=== PATIENT | female | born 1950 | race Caucasian/White ===

== ENCOUNTER 2021-01-14 09:31 | Outpatient (CLI) | payer OTHER, SELFPAY ==
--- NOTE | ~2021-01-14 | XR_ITS ---
EXAMINATION: XR knee LT 2V EXAM DATE: 01/14/2021 09:57 INDICATION: Bilateral knee pain. TECHNIQUE: Frontal and lateral projections of the left knee. Comparison is made to prior examination from 12/28/2015. FINDINGS: Long stem femoral and tibial components to left knee replacement hardware and patellar res urfacing. No hardware or osseous fracture. No periprosthetic lucency to suggest infection. No appreci able left knee joint effusion. The soft tissue is unremarkable. Advanced right knee primary osteoarth ritis. IMPRESSION: Intact left knee hardware, no acute findings. Reviewed, dictated and finalized at location A.
--- NOTE | ~2021-01-14 | XR_ITS ---
XR knee RT 2V 01/14/2021 09:56 Indication: Bilateral knee pain Procedure: 2 views right knee Comparison: No prior studies for comparison. Findings: There is severe tricompartment osteoarthritis. No acute fracture or traumatic malalignment. No significant joint effusion. No focal foreign bodies. Impression: 1: Severe tricompartment osteoarthritis of the right knee. Reviewed, dictated and finalized at location B. Impression: 1: Severe tricompartment osteoarthritis of the right knee.
== END 2021-01-14 09:32 | disposition home or self-care (01) ==
PROVIDERS: PCP Nurse Practitioner; Visit Provider Nurse Practitioner
DX: M25.561 Pain in right knee (principal); M25.562 Pain in left knee; Z96.652 Presence of left artificial knee joint; M17.11 Unilateral primary osteoarthritis, right knee
CPT/HCPCS: 73560

== ENCOUNTER 2021-01-24 14:53 | Emergency (ER) | payer OTHER, SELFPAY ==
--- NOTE | 2021-01-24 14:55 | ECG_ITS ---
Measurements Intervals [place] Rate: 80 P: 24 KS: 179 QRS: -40 QRSD: 88 T: 16 QT: 412 QTc: 476 Interpretive Statements SINUS RHYTHM POSSIBLE LEFT ATRIAL ENLARGEMENT LEFT AXIS DEVIATION POSSIBLE LEFT VENTRICULAR HYPERTROPHY POOR R WAVE PROGRESSION, ANTERIOR LEADS CANNOT RULE OUT SEPTAL INFARCT, AGE INDETERMINATE MINIMAL Q WAVES- HIGH LATERAL LEDS BORDERLINE T WAVE ABNORMALITY- ANTEROLAT/INF LEADS ABNORMAL ECG Electronically Signed On 01-24-2021 15:12:44 CDT by Ezra Jay D.O.
[2021-01-24 14:57] VITALS: BP 132/95; PULSE 78; RESP 18; TEMP 36.2; O2SAT 98
[2021-01-24 15:25] LABS: Basophils Percent Auto 0.9 % (0.2-1.2); Eosinophils Absolute Auto 0.1 K/mm3 (0-0.3); Eosinophils Percent Auto 1.8 % (0-4.4); Hematocrit 37.7 % (37.0-47.0); Hemoglobin 12.2 g/dL (12.0-15.0); Immature Granulocyte Absolute 0.01 K/mm3 (0.00-0.031); Immature Granulocyte Percent A 0.2 % (0-0.5); Lymphocytes Absolute Auto 1.71 K/mm3 (0.9-3.2); Lymphocytes Percent Auto 37.6 % (18.3-44.2); Mean Corpuscular HGB Conc 32.4 g/dl (32-36); Mean Corpuscular Hemoglobin 31.1 pg (26-34); Mean Corpuscular Volume 96.2 fl (80-100); Mean Platelet Volume 9.1 fl (7.4-10.4); Monocytes Absolute Auto 0.4 K/mm3 (0.1-0.6); Neutrophils Absolute Auto 2.3 K/mm3 (1.3-6.7); Neutrophils Percent Auto 50.5 % (45.5-73.1); Platelet Count Result 215 k/mm3 (150-375); Red Blood Count 3.92 M/mm3 (4.2-5.4); Red Cell Distribution Width 13.6 % (11.5-14.5); White Blood Count 4.6 K/mm3 (4.5-10.0)
[2021-01-24 15:50] LABS: Alanine Aminotransferase 11 U/L (4-35); Albumin Level 4.5 g/dL (3.5-5.1); Alkaline Phosphatase 73 U/L (38-126); Anion Gap 10 mmol/L (8-16); Aspartate Amino Transferase 36 U/L (14-36); Bilirubin,Total 0.5 mg/dL (0.2-1.3); Blood Urea Nitrogen 26 mg/dL (7-17); Calcium 9.4 mg/dL (8.4-10.2); Carbon Dioxide 19 mmol/L (22-30); Chloride 108 mmol/L (98-107); Estimated CRCL calculation 45 ml/min; Estimated Glomerular Filt Rate 55; Glucose 88 mg/dL (65-105); Potassium 4.3 mmol/L (3.4-5.0); Sodium 137 mmol/L (137-145)
[2021-01-24 18:10] VITALS: BP 142/72; PULSE 85; RESP 20; O2SAT 98
--- NOTE | 2021-01-24 18:30 | PC.NURSE ---
Called lab to add on TSH
--- NOTE | 2021-01-24 18:38 | ED.GENADULT ---
HPI - General Adult General Chief complaint: Altered Mental Status <Leon Saha MD - Last Filed: 01/24/21 21:22> Stated complaint: Nausea, Confusion <Leon Saha MD - Last Filed: 01/24/21 21:22> Time Seen by Provider: 01/24/21 18:17 <Leon Saha MD - Last Filed: 01/24/21 21:22> History of Present Illness HPI narrative: Patient is a 70-year-old female who presents ER with altered mental status. Patient reports she was at her apartment building and the national account manager there recommended she be seen in the hospital for confusion. Apparently she was standing in the lobby talking to her mother who is no longer present. Patient reports psychiatric illness but is unsure which one it is. She also believes that it is December 1919. Patient denies any SI/HI. She denies hearing any voices or seeing things that are not there. She reports she often talks to her mother out of habit. Denies using drugs or alcohol. <Leon Saha MD - Last Filed: 01/24/21 21:22> Related Data Allergies/adverse reactions: Allergies Allergy/AdvReac Type Severity Reaction Status Date / Time No Known Allergies Allergy Verified 01/24/21 20:38 <Leon Saha MD - Last Filed: 01/24/21 21:22> Review of Systems Review of Systems: All systems reviewed & are unremarkable except as noted in HPI and below <Leon Saha MD - Last Filed: 01/24/21 21:22> Constitutional: Constitutional: Denies chills, Denies fever(s) and Denies weakness <Leon Saha MD - Last Filed: 01/24/21 21:22> Cardiovascular: Cardiovascular: Denies chest pain, Denies rapid heart rate and Denies radiating jaw, neck or arm pain <Leon Saha MD - Last Filed: 01/24/21 21:22> Respiratory: Respiratory: Denies cough and Denies dyspnea <Leon Saha MD - Last Filed: 01/24/21 21:22> Gastrointestinal: Gastrointestinal: Denies abdominal pain, Denies nausea and Denies vomiting <Leon Saha MD - Last Filed: 01/24/21 21:22> Psychiatric: Psychiatric: Denies anxiety, Denies depression, Denies homicidal ideation and Denies suicidal ideation <Leon Saha MD - Last Filed: 01/24/21 21:22> PMFSH Past Medical History Medical History: Medical History (Updated 01/25/21 @ 06:38 by Yogi Terry MD) Bipolar disorder Fibromyalgia GERD (gastroesophageal reflux disease) History of hepatitis C Hypertension Hypothyroidism Seizure disorder <Leon Saha MD - Last Filed: 01/24/21 21:22> Surgical History Surgical History: Surgical History (Updated 01/24/21 @ 18:42 by Leon Saha MD) History of total knee arthroplasty History of tubal ligation <Leon Saha MD - Last Filed: 01/24/21 21:22> Social History Social History: Social History Alcohol intake: current <Leon Saha MD - Last Filed: 01/24/21 21:22> Exam Narrative: Exam Narrative: GENERAL: Well-appearing, well-nourished, and in no acute distress. HEAD: Normocephalic, atraumatic. EYES: PERRL and EOMI. ENT: Mucous membranes moist. CHEST: Clear to auscultation. No respiratory distress. HEART: Regular rate and rhythm. Normal peripheral pulses. ABDOMEN: Soft, nontender, nondistended. EXTREMITIES: Normal range of motion. No edema. SKIN: Warm, dry, no rash. NEURO: Alert and oriented x2. Clear speech. No focal deficit. PSYCH: No SI or HI, does not appear to be responding to internal stimuli, has disorganized thought. <Leon Saha MD - Last Filed: 01/24/21 21:22> Course Course Emergency Course: Evaluated by crisis. He believes that there are areas of concern, but he does not feel that she is any immediate danger that would justify involuntary placement. I am in agreement. She is somewhat confused, but does seem like she would be able t meet her basic needs and is not a threat to anyone. <Yogi Terry MD - Last Filed: 01/25/21 06:50> Reevaluation(s) Reevaluation #1: Care
[2021-01-24 18:54] LABS: Ethanol < 10 mg/dL (<10)
[2021-01-24 19:16] VITALS: BP 103/76; PULSE 79; RESP 18; O2SAT 99
[2021-01-24 19:40] LABS: Add Urine Microscopic? YES; Appearance Urine Cloudy (Clear); Bilirubin Urine Negative (Negative); Blood Urine Negative (Negative); Color Urine Yellow (Yellow); Glucose Urine UA Negative (Negative); Ketones Urine Negative (Negative); Leukocyte Esterase Ur 2+ LEU/UL (Negative); Nitrate Urine Negative (Negative); Protein Urine Negative (Negative); Specific Grav Ur 1.011 (1.001-1.035); Urobilinogen Urine Negative mg/dL (<2.0)
[2021-01-24 19:54] LABS: Amphetamine Screen Urine Negative (Negative); Barbiturate Screen Urine Negative (Negative); Benzodiazepines Screen Urine Negative (Negative); Cannabinoid Screen Urine Negative (Negative); Cocaine Screen Urine Negative (Negative); Methadone Screen Urine Negative (Negative); Opiate Screen Urine Negative (Negative); Phencyclidine Screen Urine Negative (Negative)
[2021-01-24 19:55] LABS: Bacteria Urine 4+ /hpf; RBC Urine 0-2 /hpf (0-2); WBC Urine 16-20 /hpf (0-3)
[2021-01-24] MEDS: CEPHALEXIN 500 MG CAPSULE PO (20:33)
--- NOTE | 2021-01-24 20:44 | PC.NURSE ---
pt unable to speak in coherent sentences. believes it's december in 2019. denies SI/HI. uses incorrect words in sentences and appears anxious. ex. i'm dizzy because telephone per MD will call crisis for pt. pt has extensive external med list but reports she takes 3 pills/day but cannot recall names.
[2021-01-24 21:00] VITALS: BP 142/76; PULSE 74; RESP 16; O2SAT 98
--- NOTE | 2021-01-24 22:34 | PC.NURSE ---
crisis restoration technician here to speak with pt. pt continues to speak in nonsensical manor. appears to provide alternating stories/history to restoration technician.
[2021-01-25 01:17] VITALS: BP 106/56; PULSE 76; RESP 15; O2SAT 96
[2021-01-25 04:47] VITALS: PULSE 65; RESP 20; O2SAT 98
--- NOTE | 2021-01-25 05:29 | PC.NURSE ---
crisis counselor here to replace last crisis cryptologic support specialist who had to leave dept.
--- NOTE | 2021-01-25 06:03 | PC.NURSE ---
crisis captain fire prevention bureau Huy in room interviewing pt.
[2021-01-25 06:45] VITALS: BP 147/76; PULSE 73; RESP 14; O2SAT 96
--- NOTE | 2021-01-25 07:00 | PC.NURSE ---
This RN spoke with pt's sister Idalmis, who agrees to come pick pt up from ED. reports she will be here approx 830am - 9am. Lives in [place], [place]. Pt currently appears asleep in ED H-2. Awoke for this RN to obtain vitals. Regular diet ordered.
--- NOTE | 2021-01-25 08:59 | PC.NURSE ---
Called pt contact Idalmis for pick and shovel man, picked up and reported that he would let her know her sister is awaiting pick and shovel man.
[2021-01-25] MEDS: CEPHALEXIN 500 MG CAPSULE PO (09:03)
[2021-01-25 10:18] VITALS: BP 123/61; PULSE 77; RESP 18; O2SAT 99
== END 2021-01-25 09:50 | disposition home or self-care (01) ==
PROVIDERS: Emergency Medicine; Emergency Provider Emergency Medicine; PCP Nurse Practitioner
DX: R41.0 Disorientation, unspecified (principal); N39.0 Urinary tract infection, site not specified; M79.7 Fibromyalgia; K21.9 Gastro-esophageal reflux disease without esophagitis; Z86.19 Personal history of other infectious and parasitic diseases; I10 Essential (primary) hypertension; E03.9 Hypothyroidism, unspecified; G40.909 Epilepsy, unspecified, not intractable, without status epilepticus; Z96.659 Presence of unspecified artificial knee joint; R94.31 Abnormal electrocardiogram [ECG] [EKG]
CPT/HCPCS: 36415; 51701; 80053; 80307; 81001; 84443; 85025; 87077; 87086; 87088; 87186; 93005; 99284; A9270

== ENCOUNTER 2021-06-02 07:39 | Observation (INO) | payer OTHER, SELFPAY ==
[2021-06-02] VITALS (30 sets, daily range): BP systolic 93–168; BP diastolic 43–92; PULSE 74–97; RESP 14–32; TEMP 36.1–36.6; O2SAT 88–100; BMI 29.8
--- NOTE | ~2021-06-02 | XR_ITS ---
EXAMINATION: XR tibia fibula LT 2V DATE: 06/02/2021 14:45 INDICATION: Fall with bruising at the left lower leg TECHNIQUE: Anteroposterior and lateral views of the left tibia and fibula were obtained. COMPARISON: Left ankle and left knee radiographs dated 06/02/21 FINDINGS: Again seen is a bimalleolar fracture at the left ankle with plaster splinting. There is a 3 mm residu al lateral displacement of the lateral malleolar fracture and 3 and 4 mm anterior displacement of the medial malleolar fracture. No fracture of the more proximal tibia or fibula. Partially visualized alexis ng stem revision left total knee arthroplasty with patellar resurfacing. Soft tissue swelling about t he ankle and distal lower leg. IMPRESSION: 1. Splinted bimalleolar fracture at the left ankle. No fracture of the more proximal tibia or fibula. Reviewed, dictated and finalized at location A. IMPRESSION: 1. Splinted bimalleolar fracture at the left ankle. No fracture of the more pro ximal tibia or fibula.
--- NOTE | ~2021-06-02 | XR_ITS ---
EXAMINATION: XR knee LT min 4V DATE: 06/02/2021 10:10 INDICATION: Left knee pain and bruising post fall TECHNIQUE: Anteroposterior, 2 oblique and crosstable lateral views of the left knee were obtained COMPARISON: 01/14/2021 and 12/28/2015 FINDINGS: Again seen is a longstem revision left total knee arthroplasty with patellar resurfacing. Alignment r emains near-anatomic. No fracture or periprosthetic lucency to suggest loosening or infection. Muscul ar atrophy at the left thigh and calf. Soft tissues are otherwise unremarkable with no left knee join t effusion. IMPRESSION: 1. Revision left total knee arthroplasty with no knee joint effusion or acute osseous abnormality. Reviewed, dictated and finalized at location A. IMPRESSION: 1. Revision left total knee arthroplasty with no knee joint effusion or acute o sseous abnormality.
--- NOTE | ~2021-06-02 | XR_ITS ---
XR ankle LT 2V 06/02/2021 14:22 Indication: Post reduction of bimalleolar fracture Procedure: 2 views of the left ankle performed in fiberglass cast Comparison: 06/02/2021 Findings: There is persistent lateral displacement of the distal fibular fracture measuring 6 mm, sli ghtly improved alignment. There is improved alignment of oblique medial malleolar fracture. No abnorm ality of the talar dome. Osteopenia. There are mild degenerative changes of the midfoot. Impression: 1: Improved alignment of bimalleolar fractures post reduction. Reviewed, dictated and finalized at location A. Impression: 1: Improved alignment of bimalleolar fractures post reduction.
--- NOTE | ~2021-06-02 | CT_ITS ---
EXAMINATION: CT brain wo con DATE: 06/02/2021 09:53 INDICATION: Altered mental status TECHNIQUE: Computed tomography (CT) of the abdomen and pelvis was performed without intravenous contr ast. The dose-length product was 983.67 mGy-cm. Automated exposure control and iterative reconstructi on technique were employed. COMPARISON: CT dated 02/15/2018. FINDINGS: Generalized atrophy. No acute intracranial hemorrhage, infarction, mass or mass effect para nasal sinuses and mastoids are pneumatized. No ventriculomegaly or midline shift. Basilar cisterns ar e patent. No depressed skull fractures. Study limited by motion artifact. IMPRESSION: 1. No acute intracranial abnormality. Reviewed, dictated and finalized at location A.
--- NOTE | ~2021-06-02 | XR_ITS ---
EXAMINATION: XR ankle LT min 3V DATE: 06/02/2021 11:30 INDICATION: Left ankle deformity post fall TECHNIQUE: Anteroposterior, oblique, mortise, and lateral views of the left ankle were obtained. COMPARISON: None. FINDINGS: There is an oblique fracture through the distal fibula with a fracture plane exiting medially at the level of the tibiotalar joint. Oblique fracture across the base of the medial malleolus extending to the medial margin of the tibial plafond and. There is approximately 7 mm lateral displacement of both the medial and lateral malleolar fragments as well as intervening talar dome with respect to the tib ial plafond and and fibular diaphysis. Prominent anterior osteophyte is old healed fracture at the a nterior margin of the tibial plafond. Small corticated accessory ossicle at the dorsal aspect of one of the tarsal metatarsal joints. No other fracture identified. Diffuse soft tissue swelling about the ankle and extending over the dorsum of the foot. IMPRESSION: 1. Fractures of the left medial and lateral malleoli with 7 mm lateral displacement of both fracture fragments in unison with the intervening talar dome. Reviewed, dictated and finalized at location A. IMPRESSION: 1. Fractures of the left medial and lateral malleoli with 7 mm lateral displace ment of both fracture fragments in unison with the intervening talar dome.
--- NOTE | ~2021-06-02 | XR_ITS ---
EXAMINATION: XR chest 2V 06/02/2021 10:09 INDICATION: Altered mental status PROCEDURE: AP and lateral views of the chest COMPARISON: Comparison to multiple prior studies sequentially, with oldest reviewed study dated 12/03. FINDINGS: The lungs are clear. The cardiomediastinal silhouette is within normal limits. There are no pleural effusions. There is no pneumothorax suspected. IMPRESSION: 1: NO ACUTE CARDIOPULMONARY DISEASE. Reviewed, dictated and finalized at location A.
--- NOTE | ~2021-06-02 | XR_ITS ---
EXAMINATION: XR knee RT min 4V DATE: 06/02/2021 10:10 INDICATION: Right knee pain post fall TECHNIQUE: Anteroposterior, 2 oblique and crosstable lateral views of the right knee were obtained COMPARISON: None. FINDINGS: Alignment is normal. No fracture. Tricompartmental osteoarthritis, severe in the medial and lateral compartments and mild to moderate severity at the patellofemoral compartment. No right knee joint eff usion/layering lipohemarthrosis. Muscular atrophy at the right thigh and calf. Soft tissues are other simon unremarkable. IMPRESSION: 1. Severe tricompartmental osteoarthritis at the right knee. No joint effusion or acute osseous abnor mality. Reviewed, dictated and finalized at location A. IMPRESSION: 1. Severe tricompartmental osteoarthritis at the right knee. No joint effusion or acute osseous abnormality.
--- NOTE | ~2021-06-02 | CT_ITS ---
EXAMINATION: CT abdomen pelvis w con DATE: 06/02/2021 09:53 INDICATION: Abdominal pain. TECHNIQUE: Computed tomography (CT) of the abdomen and pelvis was performed with 100 mL Omnipaque 350 intravenous contrast. Automated exposure control and iterative reconstruction technique were employe d. The dose-length product was 1146.10 mGy-cm. COMPARISON: None. FINDINGS: The visualized portions of the lung bases demonstrate mild atelectasis. No pleural effusion . The heart size is normal. No pericardial effusion. There is a moderate-sized sliding hiatal hernia. The liver, gallbladder, spleen, pancreas, adrenal glands, and kidneys are normal. The bladder is dis tended. There is diverticulosis of the colon without evidence of diverticulitis. There are no dilated loops of bowel. The appendix is not visualized. There are no pathologically enlarged lymph nodes. Th ere is no free intraperitoneal fluid. Pelvic floor relaxation is noted. There are old healed fracture s of left superior and inferior pubic rami. There is moderate right hip osteoarthritis and advanced l eft hip osteoarthritis. There is severe thoracolumbar spondylosis. IMPRESSION: 1. Moderate-sized sliding hiatal hernia. Reviewed, dictated and finalized at location B.
--- NOTE | 2021-06-02 07:45 | ECG_ITS ---
Measurements Intervals [place] Rate: 90 P: 15 WA: 184 QRS: 91 QRSD: 94 T: -13 QT: 405 QTc: 497 Interpretive Statements SINUS RHYTHM RIGHT AXIS DEVIATION DELAYED PRECORDIAL R/S TRANSITION MINIMAL Q WAVES- INFERIOR LEADS BORDERLINE T WAVE ABNORMALITY- INFERIOR LEADS BASELINE ARTIFACT- I, II, III, AVR, AVL, AVF, V1-V6 BORDERLINE ECG Electronically Signed On 06-02-2021 12:11:29 CDT by Ezra Jay D.O.
--- NOTE | 2021-06-02 07:51 | ED.FALL ---
HPI - Fall General Chief Complaint: Fall Stated Complaint: L KNEE PAIN, ?AMS Time Seen by Provider: 06/02/21 07:51 Source: patient and EMS Mode of arrival: EMS Limitations: altered mental status History of Present Illness HPI Narrative: Patient is a 70-year-old female with a history of alzheimer's dementia, bipolar disorder, hypertension, acid reflux, who presents for evaluation of fall and altered mental status. At the time of assessment, patient is oriented to person and place, not to time. She states it is 2000, and believes it is the month of April. Patient is able to identify the hospital she is at. Patient is able to provide some history in the room and does seem reliable with this. She states that she fell in her apartment when she tripped over a rug, causing her to fall on her knees, and secondary to pain was unable to stand and ambulate. Patient denies fever or chills. She reports nausea without vomiting. She describes a dull, aching abdominal pain without focal nature of the pain. She denies any cough or shortness of breath. She states she has been vaccinated for Covid and denies history of Covid infection. Patient denies alcohol or drug use. No recent medication changes. Per EMS, patient was heard screaming by her neighbors, thus EMS was called and when they arrived the patient was on the floor. Unknown downtime. Patient estimates that she was on the floor for several hours. She denies head trauma. Pt sister at bedside, states she lives in an elderly facility, but not memory care. States that she has trouble taking care of herself and falls frequently. She does say her mentation is typical for her currently. Related Data Home Medications Medication Instructions Recorded Confirmed duloxetine 60 mg PO DAILY 06/02/21 levetiracetam 250 mg PO BID 06/02/21 levothyroxine 88 mcg PO DAILY 06/02/21 meloxicam 7.5 mg PO DAILY 06/02/21 omeprazole 20 mg PO DAILY 06/02/21 Allergies Allergy/AdvReac Type Severity Reaction Status Date / Time No Known Allergies Allergy Verified 06/02/21 07:48 Review of Systems Review of Systems: ROS unobtainable: Yes unobtainable due to mental status PMFSH Past Medical History Medical History (Updated 06/02/21 @ 14:48 by Armida Fuentes MD) Anxiety Arthritis Bipolar disorder Depression History suicide attempt at age 17. Fibromyalgia Gastroesophageal reflux disease Hepatitis C (2010) Status post interferon. Hypertension Hypothyroidism Seizure disorder Surgical History Surgical History (Updated 06/02/21 @ 13:47 by Yoanna Chawla PA-C) History of ankle surgery (04/21/10) ORIF of left ankle fracture with subsequent hardware removal per Dr. Colon. History of arthroplasty of left knee With revision. History of tubal ligation (1975) Social History Social History (Updated 06/02/21 @ 13:42 by Yoanna Chawla PA-C) Social History: The patient lives in [place]. She is disabled. Smokes 1 to 2 packs of cigarettes a day. History of alcohol abuse, she went through alcoholics anonymous. Smoking status: Former smoker Alcohol intake: never Substance use: never Gender identity (if verbalized by the patient): Female Spiritual care concerns: No Exam Narrative: GENERAL: Awake, alert, conversant, confused HEAD: Normocephalic, atraumatic. EYES: PERRLA and EOMI. ENT: Nares clear, no rhinorrhea or epistaxis. Mucous membranes dry NECK: Supple. CHEST: No respiratory distress, breathing even and non labored HEART: Regular rate, sinus rhythm ABDOMEN:Non distended, non tender throughout, no guarding EXTREMITIES: Normal range of motion. No edema. There is bilateral ecchymosis to both knees. Patellas are nontender in midline bilaterally. No warmth. Patient with full flexion and extension at the bilateral knees without limitation. No gross deformity. SKIN: Pale, dry, scattered ecchymoses to bilateral upper and lower extremities NEURO:No focal deficits.
[2021-06-02 08:08] LABS: Basophils Absolute Auto 0.1 K/mm3 (0.0-0.1); Basophils Percent Auto 0.3 % (0.2-1.2); Hematocrit 31.8 % (37.0-47.0); Hemoglobin 10.5 g/dL (12.0-15.0); Immature Granulocyte Percent A 0.6 % (0-0.5); Lymphocytes Absolute Auto 1.25 K/mm3 (0.9-3.2); Lymphocytes Percent Auto 7.9 % (18.3-44.2); Mean Corpuscular Hemoglobin 30.8 pg (26-34); Mean Corpuscular Volume 93.3 fl (80-100); Mean Platelet Volume 8.6 fl (7.4-10.4); Monocytes Absolute Auto 1.1 K/mm3 (0.1-0.6); Monocytes Percent Auto 6.8 % (2.6-8.5); Neutrophils Absolute Auto 13.4 K/mm3 (1.3-6.7); Neutrophils Percent Auto 84.4 % (45.5-73.1); Platelet Count Result 220 k/mm3 (150-375); Red Blood Count 3.41 M/mm3 (4.2-5.4); Red Cell Distribution Width 13.2 % (11.5-14.5); White Blood Count 15.9 K/mm3 (4.5-10.0)
[2021-06-02 08:09] LABS: Add Urine Microscopic? NO; Appearance Urine Clear (Clear); Bilirubin Urine Negative (Negative); Blood Urine Negative (Negative); Color Urine Yellow (Yellow); Glucose Urine UA Negative (Negative); Ketones Urine Negative (Negative); Leukocyte Esterase Ur Negative LEU/UL (Negative); Nitrate Urine Negative (Negative); Protein Urine Negative (Negative); Specific Grav Ur 1.013 (1.001-1.035); Urobilinogen Urine Negative mg/dL (<2.0)
[2021-06-02 08:18] LABS: Alanine Aminotransferase 19 U/L (4-35); Albumin Level 4.4 g/dL (3.5-5.1); Alkaline Phosphatase 72 U/L (38-126); Anion Gap 10 mmol/L (8-16); Aspartate Amino Transferase 44 U/L (14-36); Bilirubin,Total 0.4 mg/dL (0.2-1.3); Blood Urea Nitrogen 21 mg/dL (7-17); Calcium 9.3 mg/dL (8.4-10.2); Carbon Dioxide 19 mmol/L (22-30); Chloride 99 mmol/L (98-107); Estimated CRCL calculation 33 ml/min; Estimated Glomerular Filt Rate 35; Glucose 95 mg/dL (65-110); Potassium 4.1 mmol/L (3.4-5.0); Sodium 128 mmol/L (137-145)
[2021-06-02 08:31] LABS: Prothrombin Time 12.8 Seconds (11.1-14.7)
[2021-06-02 08:32] LABS: Partial Thromboplastin Time 23.6 SECONDS (22.3-36.8)
[2021-06-02 08:36] LABS: Lactic Acid Reflex 1.5 mmol/L (0.7-2.1)
[2021-06-02 08:37] LABS: Ethanol < 10 mg/dL (<10)
[2021-06-02 08:41] LABS: Creatine Kinase 1246 U/L (30-135)
[2021-06-02 08:45] LABS: Alveolar/Arterial O2 Gradient 35.9 mmHg; Base Excess ABG -6.4 mEq/l (+/-2.0); Fractional Inspired Oxygen 21 %; HCO3 ABG 17.9 mEq/l (22.0-26.0); Oxygen Content ABG 14.1 %vol (16.0-22.0); Oxygen Saturation ABG 95.2 % (95.0-100.0); Oxyhemoglobin 93.5 % THb (90.0-100.0); PCO2 ABG 31.2 mmHg (35.0-45.0); PO2 ABG 76.5 mmHg (80.0-100.0); PO2 FiO2 Ratio Arterial Blood 3.64 %; Total Hemoglobin 10.7 g/dL (12.0-18.0); pH ABG 7.376 (7.350-7.450)
[2021-06-02 08:46] LABS: Device ROOM AIR; Modified Allen's Test Pass; Site Drawn LEFT BRACHIAL
[2021-06-02 08:48] LABS: CRP 0.7 mg/dL (<1.0)
[2021-06-02 08:51] LABS: Troponin I < 0.012 ng/mL (0.000-0.034)
[2021-06-02] MEDS: SODIUM CHLORIDE 0.9% IV 1,000 ML 999 ML IV CONT ×2 (09:19→13:59)
[2021-06-02 10:04] LABS: Ammonia < 9 umol/L (9-30)
[2021-06-02 10:07] LABS: Erythrocyte Sedimentation Rate 20 mm/hr (0-20)
[2021-06-02 10:51] LABS: Amphetamine Screen Urine Negative (Negative); Barbiturate Screen Urine Negative (Negative); Benzodiazepines Screen Urine Negative (Negative); Cannabinoid Screen Urine Negative (Negative); Cocaine Screen Urine Negative (Negative); Methadone Screen Urine Negative (Negative); Opiate Screen Urine Negative (Negative); Phencyclidine Screen Urine Negative (Negative)
--- NOTE | 2021-06-02 10:55 | PC.NURSE ---
Staff observed patient attempting to climb off the end of the stretcher. Upon staff entering the room at the doorway, pt urinated on floor, slipped and fell. Did not strike head. Deformity noted to left ankle with pms intact.
--- NOTE | 2021-06-02 12:16 | PCCCNOTE ---
Spoke with patient at bedside. Pt remains confused at this time. Adamantly refusing to consider SNF placement and would not accept facility list. MD had not yet spoken with family regarding diagnosis. Will defer further discussion about SNF placement until after family has been notified of diagnosis
--- NOTE | 2021-06-02 13:38 | PCOTNOTE ---
OT orders received prior to change in medical status, awaiting new OT orders following ortho consult.
--- NOTE | 2021-06-02 14:00 | PM.IMHP ---
H&P: HPI History of Present Illness Date/Time: 06/02/21 14:00 Chief Complaint: Fall. Narrative: This a 70-year-old female with history of dementia, seizures, hypothyroidism, hepatitis-C, bipolar disorder, anxiety, and depression who presented to the emergency department earlier today via EMS from home for evaluation after a fall. She is not a very good historian as she recently received ketamine and Versed and as such some of the following is obtained via a review of her electronic medical records as well as discussions with her sister. The patient lives in her own apartment at a [address]+ senior apartment complex and it sounds like she gets along pretty well. Sometime after midnight she got up to use the restroom although she did not take her walker with her and she slipped on the floor which caused her to fall onto her hands and knees. Unfortunately she was unable to get herself up and spent the rest of the night on the floor. Neighbors heard her yelling for help not long prior to arrival and she was brought in for evaluation. Labs done in the emergency department showed an increase in creatinine and CK and a call was placed to admit her to the hospital for rhabdomyolysis. While in the emergency department the patient attempted to get out of bed at which time she reportedly urinated on the floor, slipped, and fell. She was noted to have a deformity of the left ankle with evidence of fracture on imaging. She has mild discomfort in her left ankle at this time but no other complaints. Specifically she denies headache, vertigo, focal weakness, paresthesias, fever, chills, sweats, cold and flu symptoms, chest pain, pleuritic pain, palpitations, shortness of breath, nausea, vomiting, diarrhea, and dysuria. Review of Systems Review of Systems: Twelve systems were reviewed with pertinent positives and negatives as per HPI. She has not had a seizure for many years. She denies head trauma and loss of consciousness. No recent cold or flu symptoms. Except as documented, all other systems were reviewed and are negative. [facility] Past Medical History Medical History Anxiety Arthritis Bipolar disorder Depression History suicide attempt at age 17. Fibromyalgia Gastroesophageal reflux disease Hepatitis C (2010) Status post interferon. Hypertension Hypothyroidism Seizure disorder Surgical History Surgical History (Updated 06/02/21 @ 13:47 by Yoanna Chawla PA-C) History of ankle surgery (04/21/10) ORIF of left ankle fracture with subsequent hardware removal per Dr. Colon. History of arthroplasty of left knee With revision. History of tubal ligation (1975) Social History Social History (Updated 06/02/21 @ 20:32 by Yoanna Chawla PA-C) Social History: The patient lives in [place]. She is disabled. Former smoker. History of alcohol abuse, she went through alcoholics anonymous and has not drank for quite some time though she could not further quantify. No drug use. Idalmis Sheppard, sister, is her emergency contact. Code status: Full code. Meds Home Medications and Allergies Home Medications Medication Instructions Recorded Confirmed Type duloxetine 60 mg PO DAILY 06/02/21 06/02/21 History ergocalciferol (vitamin D2) 1,250 mcg PO DAILY 06/02/21 06/02/21 History [Vitamin D2] hydroxyzine pamoate 25 mg PO DAILY 06/02/21 06/02/21 History latanoprost 1 drp EACH EYE HS 06/02/21 06/02/21 History levetiracetam 250 mg PO BID 06/02/21 06/02/21 History levothyroxine 88 mcg PO DAILY 06/02/21 06/02/21 History meloxicam 15 mg PO DAILY 06/02/21 06/02/21 History omeprazole 20 mg PO DAILY 06/02/21 06/02/21 History quetiapine 50 mg PO DAILY 06/02/21 06/02/21 History quetiapine 400 mg PO HS 06/02/21 06/02/21 History Allergies Allergy/AdvReac Type Severity Reaction Status Date / Time No Known Allergies Allergy Verified 06/02/21 07:48 Vital Signs Vital Signs - 24 hr 06/02/21 07:37
--- NOTE | 2021-06-02 14:29 | PC.NURSE ---
medication given at [address] Camarena, 1 mg versed, 70 mg of ketamine IVP. Pt. attached to monitor, all needed equipment available.
--- NOTE | 2021-06-02 14:38 | PC.NURSE ---
pt. would not leave end tidal nasal cannula on during post sedation phase.
--- NOTE | 2021-06-02 14:38 | PC.NURSE ---
At 1416, OCL application was completed by histologic technician with assisting and evaluated extremity after application. Post reduction xray was completed shortly after OCL application
--- NOTE | 2021-06-02 15:05 | PC.NURSE ---
At 1445, pt. returned to her baseline LOC; remains confused and unpredictable, frequently moving around in bed and removing monitoring equipment. Speech clear but not appropriate. Sitter remains at bedside
--- NOTE | 2021-06-02 15:27 | PC.NURSE ---
Just prior to reduction, top dentures were removed, placed in yellow denture cup and given to visitor.
[2021-06-02 15:28] LABS: Creatine Kinase 1559 U/L (30-135); Magnesium 2.3 mg/dL (1.6-2.3); Sodium 133 mmol/L (137-145)
--- NOTE | 2021-06-02 15:51 | ADMGEN ---
This patient, Krys Varela, was admitted to [facility] Surg Room 307-01. Patient/family oriented to hospital policies and general routines including ID bracelet, bed and alarms, visiting hours, pain management, procedures, bathroom and other care routines, personal items, smoking policy, room service/diet, and visiting hours. Information on how to activate the Rapid Response Team has been discussed. Patient/Family are encouraged to report perceived risks to care and to ask questions if they do not understand what they are told or what they should do.
[2021-06-02 17:35] LABS: Folic Acid 5.1 ng/mL (2.76->20)
[2021-06-02 18:02] LABS: Glucose Point of Care 85 mg/dl (65-105)
[2021-06-02 18:09] LABS: Iron 47 ug/dL (37-170)
[2021-06-02 18:19] LABS: Percent Iron Saturation 16 % (20-50)
[2021-06-02] MEDS: MORPHINE SULFATE (*CRX) 2 MG/ML INJ IV PUSH (20:05)
[2021-06-02 20:29] LABS: Creatinine Urine 40.2 mg/dL
[2021-06-02] MEDS: SODIUM CHLORIDE 0.9% IV 1,000 ML 125 ML IV CONT (20:37)
[2021-06-02 20:58] LABS: Sodium Urine Random 111 meq/L
[2021-06-02 22:44] LABS: Anion Gap 4 mmol/L (8-16); Blood Urea Nitrogen 15 mg/dL (7-17); Calcium 8.5 mg/dL (8.4-10.2); Carbon Dioxide 21 mmol/L (22-30); Chloride 106 mmol/L (98-107); Estimated CRCL calculation 44 ml/min; Estimated Glomerular Filt Rate 49; Glucose 90 mg/dL (65-110); Potassium 3.6 mmol/L (3.4-5.0); Sodium 131 mmol/L (137-145)
[2021-06-02] MEDS: LATANOPROST 0.005% OP SOLN 2.5 ML BTL 1 DROP EACH EYE (23:40)
[2021-06-02] MEDS: QUEtiapine FUMARATE XR 200 MG TAB.ER.24H 400 MG PO (23:40)
[2021-06-02] MEDS: HYDROcodone/acetaminophen (*CRX) 5-325 MG TABLET 1 TAB PO (23:41)
[2021-06-03] MEDS: SODIUM CHLORIDE 0.9% IV 1,000 ML 125 ML IV CONT ×3 (01:51→18:49)
[2021-06-03] MEDS: LEVOTHYROXINE SODIUM 88 MCG TABLET PO (05:38)
[2021-06-03 05:59] VITALS: BP 114/46; PULSE 81; RESP 18; TEMP 36.1; O2SAT 96
[2021-06-03 06:25] LABS: Hematocrit 27.4 % (37.0-47.0); Hemoglobin 8.7 g/dL (12.0-15.0); Mean Corpuscular HGB Conc 31.8 g/dl (32-36); Mean Corpuscular Hemoglobin 30.3 pg (26-34); Mean Corpuscular Volume 95.5 fl (80-100); Mean Platelet Volume 8.7 fl (7.4-10.4); Platelet Count Result 193 k/mm3 (150-375); Red Blood Count 2.87 M/mm3 (4.2-5.4); Red Cell Distribution Width 13.4 % (11.5-14.5); White Blood Count 4.9 K/mm3 (4.5-10.0)
[2021-06-03 08:31] LABS: Anion Gap 6 mmol/L (8-16); Blood Urea Nitrogen 12 mg/dL (7-17); Carbon Dioxide 17 mmol/L (22-30); Chloride 109 mmol/L (98-107); Creatine Kinase 1390 U/L (30-135); Estimated CRCL calculation 53 ml/min; Estimated Glomerular Filt Rate > 60; Glucose 79 mg/dL (65-110); Magnesium 2.2 mg/dL (1.6-2.3); Potassium 3.6 mmol/L (3.4-5.0); Sodium 132 mmol/L (137-145)
[2021-06-03 09:45] VITALS: O2SAT 96
[2021-06-03] MEDS: hydrOXYzine pamoate 25 MG CAPSULE PO (09:45)
[2021-06-03] MEDS: QUEtiapine FUMARATE XR 50 MG TAB.ER.24H PO (09:45)
[2021-06-03] MEDS: DULoxetine HCL 60 MG CAPSULE.DR PO (09:45)
[2021-06-03] MEDS: levETIRAcetam 250 MG TABLET PO ×2 (09:45→17:08)
[2021-06-03] MEDS: PANTOPRAZOLE 40 MG TABLET PO (09:45)
[2021-06-03] MEDS: HYDROcodone/acetaminophen (*CRX) 5-325 MG TABLET 1 TAB PO ×3 (09:47→22:13)
--- NOTE | 2021-06-03 13:29 | PM.IMPN ---
Progress Note: A&P Assessment and Plan (1) Fall from ground level: Code(s): W18.30XA - Fall on same level, unspecified, initial encounter Status: Acute Assessment and Plan: Patient reports a mechanical fall at home and denies antecedent symptoms. Continue with fall precautions Appreciate PT/OT eval. Weightbearing status per Orthopedic surgery (2) Displaced bimalleolar fracture of left ankle: Code(s): S82.842A - Displaced bimalleolar fracture of left lower leg, initial encounter for closed fracture Status: Acute Assessment and Plan: Ankle x-ray shows fracture of the left medial and lateral malleoli. Fracture was reduced in the ED and left ankle is splinted. Dr. Huerta consulted. Recommendations appreciated Analgesics available as needed (3) Rhabdomyolysis: Qualifiers: Rhabdomyolysis type: non-traumatic Qualified Code(s): M62.82 - Rhabdomyolysis Code(s): M62.82 - Rhabdomyolysis Status: Acute Assessment and Plan: Secondary to fall. CK 1246 at presentation and peakedat 1559. Improved today at 1390 Continue IV fluid rehydration at 125 ml/hr Trend CK. Monitor liver enzymes. Monitor urine output. Rao catheter in place. (4) Acute kidney injury: Code(s): N17.9 - Acute kidney failure, unspecified Status: Acute Assessment and Plan: Presumably due to rhabdomyolysis. Creatinine 1.1 at presentation has improved to 0.9 today with IV fluids. Monitor BMP daily (5) Hyponatremia: Code(s): E87.1 - Hypo-osmolality and hyponatremia Status: Acute Assessment and Plan: [place] to be secondary to dehydration. Slow improvement with gentle IV fluids up to 132 today. Continue with IV fluids for treatment of rhabdomyolysis Monitor BMP daily Urine sodium elevated. FENa is 2.3%. (6) Normocytic anemia: Code(s): D64.9 - Anemia, unspecified Status: Acute Assessment and Plan: Hgb 10.5 at presentation, declined to 8.7 today which is likely dilutional. No signs or symptoms to suggest active bleeding and vital signs are stable. . Iron , TIBC, and ferritin wnl with low iron saturation. B12 and folate wnl. Monitor H&H (7) Psychiatric illness: Code(s): F99 - Mental disorder, not otherwise specified Status: Acute Assessment and Plan: No acute issues. Continue quetiapine and duloxetine. (8) Hypothyroidism: Code(s): E03.9 - Hypothyroidism, unspecified Status: Chronic Assessment and Plan: TSH wnl Continue levothyroxine Subjective Date/time seen: 06/03/21 13:29 Interval history: Date of service: 06/03/2021 Krys Varela is a 70-year-old female with a history of hypertension, hypothyroidism, bipolar disorder, hepatitis-C, and seizure disorder who is seen in follow-up for bimalleolar left ankle fracture. She reports that she slipped and fell on a wet spot on her floor and was unable to get herself up. At this time, she is rating her ankle pain as 5/10. She had some nausea this morning. She did tolerate eating her breakfast. She has a Rao catheter and has no issues with this. She had a bowel movement yesterday morning. She denies body aches or muscle cramps. She does have some knee discomfort and bruises on her knees from her fall. Denies fevers or chills. No shortness breath, cough, chest pain, palpitations. No wheezes. She has no additional concerns at this time. Review of Systems Review of Systems: All systems reviewed & are unremarkable except as noted in HPI and below Exam Narrative: Ms. Varela is a well-nourished, well-appearing 70-year-old female who is lying supine in bed. She appears comfortable and is in NARD. Neuro: awake, alert and oriented to self and location, can state president but not month or year, speech clear, no focal neuro deficits noted HEENMT: normocephalic, atraumatic, E
--- NOTE | 2021-06-03 13:56 | PCPTNOTE ---
Attempted PT eval. Waiting on Ortho consult. Will follow.
[2021-06-03 14:00] VITALS: BP 85/57; PULSE 82; RESP 16; TEMP 37.2; O2SAT 99
--- NOTE | 2021-06-03 14:14 | PM.IMHP ---
H&P: HPI History of Present Illness Date/Time: 06/03/21 14:14 AFIA IS A 70 YO FEMALE WHO WAS SEEN IN THE ED FOR POSSIBLE RHABDOMYOLYSIS. SHE WAS SCHEDULED FOR ADMISSION BUT WHEN SHE TRIED TO GET UP TO TO TO THE BATHROOM SHE SUSTAINED A FALL IN THE ED AND TWISTED HER LEFT ANKLE. SHE NOW HAS A LEFT BI MALLEOLAR ANKLE FRACTURE WITH A LATERAL TIBIAL PLAFOND FRACTURE WITH MILD DEPRESSION OF THE ARTICULAR SURFACE. HER FRACTURE WAS REDUCED IN THE ED AND THE ER PHYSICIAN PREFORMED AN EXCELLENT REDUCTION PER POST REDUCTION RADIOGRAPHS PERSONALLY VIEWED BY MYSELF. SHE WAS PLACED IN A SPLINT AND IS NOW ADMITTED TO THE FLOOR. SHE DENIES ANY OTHER INJURIES. SHE IS CURRENTLY BEING TREATED FOR ACUTE KIDNEY FAILURE MOST LIKELY FROM RHABDOMYOLYSIS. Chief Complaint: LEFT ANKLE PAIN Review of Systems Review of Systems: All systems reviewed & are unremarkable except as noted in HPI and below PMFSH Past Medical History Medical History Anxiety Arthritis Bipolar disorder Depression History suicide attempt at age 17. Fibromyalgia Gastroesophageal reflux disease Hepatitis C (2010) Status post interferon. Hypertension Hypothyroidism Seizure disorder Surgical History Surgical History History of ankle surgery (04/21/10) ORIF of left ankle fracture with subsequent hardware removal per Dr. Colon. History of arthroplasty of left knee With revision. History of tubal ligation (1975) Social History Social History Social History: The patient lives in [place]. She is disabled. Former smoker. History of alcohol abuse, she went through alcoholics anonymous and has not drank for quite some time though she could not further quantify. No drug use. Idalmis Sheppard, sister, is her emergency contact. Code status: Full code. Meds Home Medications and Allergies Home Medications Medication Instructions Recorded Confirmed Type duloxetine 60 mg PO DAILY 06/02/21 06/02/21 History ergocalciferol (vitamin D2) 1,250 mcg PO DAILY 06/02/21 06/02/21 History [Vitamin D2] hydroxyzine pamoate 25 mg PO DAILY 06/02/21 06/02/21 History latanoprost 1 drp EACH EYE HS 06/02/21 06/02/21 History levetiracetam 250 mg PO BID 06/02/21 06/02/21 History levothyroxine 88 mcg PO DAILY 06/02/21 06/02/21 History meloxicam 15 mg PO DAILY 06/02/21 06/02/21 History omeprazole 20 mg PO DAILY 06/02/21 06/02/21 History quetiapine 50 mg PO DAILY 06/02/21 06/02/21 History quetiapine 400 mg PO HS 06/02/21 06/02/21 History Allergies Allergy/AdvReac Type Severity Reaction Status Date / Time No Known Allergies Allergy Verified 06/02/21 07:48 Vital Signs Vital Signs - 24 hr 06/02/21 14:30 06/02/21 14:45 06/02/21 15:40 Temperature 36.1 C L Pulse Rate 76 Pulse Rate [Apical] 88 85 Respiratory Rate 22 H 14 20 Blood Pressure 118/50 L Blood Pressure [Right Arm] 111/47 L 127/50 L Pulse Oximetry 100 97 99 06/02/21 21:31 06/03/21 05:59 06/03/21 09:45 Temperature 36.4 C L 36.1 C L Pulse Rate 74 81 Pulse Rate [Apical] Respiratory Rate 18 18 Blood Pressure 107/52 L 114/46 L Blood Pressure [Right Arm] Pulse Oximetry 98 96 96 Exam Extrem: Right upper extremity: normal to inspection and full ROM Left upper extremity: normal to inspection and full ROM Right lower extremity: hip/thigh Details: normal to inspection and normal ROM, knee Details: normal to inspection, normal ROM, knee ligament exam normal and crepitus; no tenderness and no swelling, ankle Details: normal to inspection, no edema and normal ROM; no tenderness and no swelling and foot Details: normal capillary refill, toes with normal ROM, ecchymosis and motor-sensory exam Details: light-touch normal Left lower extremity: normal to inspection (SPLINT IN GOOD REPAIR), normal capillary refill, hip/thigh Details: normal to inspec
[2021-06-03 22:00] VITALS: BP 74/44; PULSE 80; RESP 20; TEMP 36.7; O2SAT 98
[2021-06-03] MEDS: LATANOPROST 0.005% OP SOLN 2.5 ML BTL 1 DROP EACH EYE (22:13)
[2021-06-03] MEDS: QUEtiapine FUMARATE XR 200 MG TAB.ER.24H 400 MG PO (22:13)
[2021-06-04 06:00] VITALS: BP 86/42; PULSE 76; RESP 18; TEMP 36.7; O2SAT 96
[2021-06-04] MEDS: LEVOTHYROXINE SODIUM 88 MCG TABLET PO (06:55)
[2021-06-04] MEDS: HYDROcodone/acetaminophen (*CRX) 5-325 MG TABLET 1 TAB PO ×3 (07:01→22:16)
[2021-06-04 07:24] LABS: Hematocrit 28.8 % (37.0-47.0); Hemoglobin 9.1 g/dL (12.0-15.0); Mean Corpuscular HGB Conc 31.6 g/dl (32-36); Mean Corpuscular Hemoglobin 31.1 pg (26-34); Mean Corpuscular Volume 98.3 fl (80-100); Mean Platelet Volume 9.2 fl (7.4-10.4); Platelet Count Result 194 k/mm3 (150-375); Red Blood Count 2.93 M/mm3 (4.2-5.4); Red Cell Distribution Width 13.6 % (11.5-14.5); White Blood Count 4.4 K/mm3 (4.5-10.0)
[2021-06-04 07:34] LABS: Sodium 136 mmol/L (137-145)
[2021-06-04 07:36] LABS: Alanine Aminotransferase 20 U/L (4-35); Albumin Level 2.8 g/dL (3.5-5.1); Alkaline Phosphatase 52 U/L (38-126); Anion Gap 4 mmol/L (8-16); Aspartate Amino Transferase 49 U/L (14-36); Bilirubin,Total 0.4 mg/dL (0.2-1.3); Blood Urea Nitrogen 11 mg/dL (7-17); Carbon Dioxide 20 mmol/L (22-30); Chloride 112 mmol/L (98-107); Creatine Kinase 1304 U/L (30-135); Estimated CRCL calculation 62 ml/min; Estimated Glomerular Filt Rate > 60; Glucose 81 mg/dL (65-110)
[2021-06-04] MEDS: PANTOPRAZOLE 40 MG TABLET PO (09:10)
[2021-06-04] MEDS: levETIRAcetam 250 MG TABLET PO ×2 (09:10→16:44)
[2021-06-04] MEDS: hydrOXYzine pamoate 25 MG CAPSULE PO (09:10)
[2021-06-04] MEDS: DULoxetine HCL 60 MG CAPSULE.DR PO (09:10)
[2021-06-04] MEDS: QUEtiapine FUMARATE XR 50 MG TAB.ER.24H PO (09:10)
--- NOTE | 2021-06-04 11:15 | PM.PNORT ---
Progress Note: A&P Assessment and Plan (1) Bimalleolar ankle fracture: Qualifiers: Encounter type: initial encounter Fracture type: closed Laterality: left Qualified Code(s): S82.842A - Displaced bimalleolar fracture of left lower leg, initial encounter for closed fracture Code(s): S82.843A - Displaced bimalleolar fracture of unspecified lower leg, initial encounter for closed fracture Status: Acute Assessment and Plan: left ankle bimalleolar fracture. Currently with splint in place. Patient poor surgical candidate due to medical comorbidities, ability to care for self and rehab. Plan for continued non operative treatment at this time. We will try to mobilize patient up to chair and with therapy, nonweightbearing left leg. Pain control. Disposition when medically stable. We will continue follow. Subjective Subjective Date/Time Seen: 06/04/21 11:15 Principal diagnosis: left ankle fracture Interval history: awake, in bed. Complains of pain left knee from previous surgeries. Minimal complaints of left ankle pain. Exam HENMT: Head: normal to inspection, normocephalic and atraumatic Eyes: Conjunctivae: conjunctivae normal Sclera: sclerae normal Neck: Neck: supple and nontender Chest: Chest palpation & inspection: normal inspection of the chest Resp: Effort & Inspection: normal respiratory effort and no audible wheezes Cardio: Rate: regular rate Rhythm: regular rhythm : General: Yes deferred Skin: General skin exam: no rashes or lesions noted Extrem: General: capillary refill normal Right upper extremity: normal capillary refill and shoulder/upper arm ecchymosis upper arm distal medial Left upper extremity: normal to inspection Right lower extremity: normal to inspection and hip/thigh Details: normal to inspection Left lower extremity: hip/thigh Details: normal to inspection, knee Details: abnormal to inspection ( midline incision well healed) and tenderness Location: of the medial joint line; no swelling, no ecchymosis and no unusual warmth and ankle (no calf tenderness) Details: abnormal to inspection ( Splint in place), tenderness ( lateral malleolus, anterior ankle and medial ankle), swelling ( moderate anterior ankle, moderate lateral ankle), abnormal ROM ( Minimal motion secondary to fracture), ecchymosis, crepitus and other ( good capillary refill in toes, 2+ DP pulse, light touch sensation intact) Psych: Affect: normal affect Objective Data Vital Signs Vital Signs: Vital Signs - 24 hr 06/03/21 14:00 06/03/21 22:00 06/04/21 06:00 Temperature 98.9 F 98.1 F 98.0 F Pulse Rate 82 80 76 Respiratory Rate 16 20 18 Blood Pressure 85/57 L 74/44 L 86/42 L Pulse Oximetry 99 98 96 Intake/Output Intake/Output: Intake & Output 06/01/21 06/02/21 06/03/21 06/04/21 23:59 23:59 23:59 23:59 Intake Total 1999 5140 1390 Output Total 1052 319 4624 Balance 525 7283 -802 Meds/Results Medications: Active Medications Generic Name Dose Route Start Last Admin Trade Name Freq PRN Reason Stop Dose Admin Hydrocodone Bitart/Acetaminophen 1 tab 06/02/21 23:19 06/04/21 07:01 Hydrocodone/Acetaminophen (*Crx) 5-325 Mg Tablet PO 1 tab Q6H PRN Administration Pain Rated 4-6 Duloxetine HCl 60 mg 06/03/21 09:00 06/04/21 09:10 Duloxetine Hcl 60 Mg Capsule.Dr PO 60 mg DAILY ORIN Administration Ergocalciferol unit 06/03/21 09:00 Ergocalciferol 50,000 Unit Capsule PO DAILY ORIN Hydroxyzine Pamoate 25 mg 06/03/21 09:00 06/04/21 09:10 Hydroxyzine Pamoate 25 Mg Capsule PO 25 mg DAILY ORIN Administration Sodium Chloride 1,000 mls @ 125 mls/hr 06/02/21 10:15 06/03/21 22:09 Normal Saline Iv IV CONT Infused .Q8H ORIN Infusion Latanoprost 1 drop 06/02/21 21:00 06/03/21 22:13 Latanoprost 0.005% Op Soln 2.5 Ml Btl EACH EYE 1 drop HS ORIN Administration Levetiracetam 250 mg 06/03/21 09:00 06/04/21 09:10 Levetira
[2021-06-04] MEDS: CALCIUM CARBONATE (TUMS) 500 MG (200 MG ELEMENTAL) PO (13:33)
[2021-06-04 14:00] VITALS: BP 109/43; PULSE 69; RESP 20; TEMP 37.1; O2SAT 99
--- NOTE | 2021-06-04 14:01 | PM.IMPN ---
Progress Note: A&P Assessment and Plan (1) Fall from ground level: Code(s): W18.30XA - Fall on same level, unspecified, initial encounter Status: Acute Assessment and Plan: Patient reports a mechanical fall at home and denies antecedent symptoms. She subsequently had a mechanical fall in the ED. Continue with fall precautions Appreciate PT/OT eval. Nonweightbearing left leg per Orthopedic surgery (2) Displaced bimalleolar fracture of left ankle: Code(s): S82.842A - Displaced bimalleolar fracture of left lower leg, initial encounter for closed fracture Status: Acute Assessment and Plan: Ankle x-ray showed fracture of the left medial and lateral malleoli. Fracture was reduced in the ED and left ankle is splinted. Appreciate orthopedic surgery consultation Planning for conservative management at this time Analgesics available as needed Continue with therapy, nonweightbearing left leg as noted above (3) Rhabdomyolysis: Qualifiers: Rhabdomyolysis type: non-traumatic Qualified Code(s): M62.82 - Rhabdomyolysis Code(s): M62.82 - Rhabdomyolysis Status: Acute Assessment and Plan: Secondary to fall. CK 1246 at presentation and peakedat 1559. Improved today at 1304 Continue IV fluid rehydration at 125 ml/hr Trend CK. Monitor liver enzymes Urine output increased today. Continue with Rao and monitor I&O (4) Acute kidney injury: Code(s): N17.9 - Acute kidney failure, unspecified Status: Acute Assessment and Plan: Presumably due to rhabdomyolysis. Creatinine 1.1 at presentation has improved to 0.8 today with IV fluids. Monitor BMP daily (5) Hyponatremia: Code(s): E87.1 - Hypo-osmolality and hyponatremia Status: Acute Assessment and Plan: [place] to be secondary to dehydration. Slow improvement with gentle IV fluids up to 136 today. Continue with IV fluids for treatment of rhabdomyolysis Monitor BMP daily (6) Normocytic anemia: Code(s): D64.9 - Anemia, unspecified Status: Acute Assessment and Plan: Hgb 10.5 at presentation with slight decline which is likely dilutional. No signs or symptoms to suggest active bleeding and vital signs are stable. . Iron , TIBC, and ferritin wnl with low iron saturation. B12 and folate wnl. Monitor H&H. Remaining stable. (7) Psychiatric illness: Code(s): F99 - Mental disorder, not otherwise specified Status: Acute Assessment and Plan: No acute issues. Continue quetiapine and duloxetine. (8) Hypothyroidism: Code(s): E03.9 - Hypothyroidism, unspecified Status: Chronic Assessment and Plan: TSH wnl Continue levothyroxine Subjective Date/time seen: 06/04/21 14:01 Interval history: Date of service: 06/04/2021 Krys Varela is a 70-year-old female with a history of hypertension, hypothyroidism, bipolar disorder, hepatitis-C, and seizure disorder who is seen in follow-up for bimalleolar left ankle fracture. She is doing pretty well today. Her left ankle pain is well controlled. She is complaining of discomfort from laying in bed and is having difficulty repositioning herself due to ankle splint. States her leg feels very heavy. Also complains of back pain. Otherwise, she has no significant complaints. No issues with her Rao catheter. She has not had a bowel movement. She has not been up out of bed get. Appetite is good. Denies fever, chills, nausea, vomiting, dizziness, lightheadedness, shortness breath, cough, chest pain, or palpitations. Review of Systems Review of Systems: All systems reviewed & are unremarkable except as noted in HPI and below Exam Narrative: Ms. Varela is a well-nourished, well-appearing 70-year-old female who is lying supine in bed. She appears comfortable and is in NARD. Neuro: awake, alert and oriented to self and locati
[2021-06-04] MEDS: SODIUM CHLORIDE 0.9% IV 1,000 ML 125 ML IV CONT (15:35)
[2021-06-04 22:00] VITALS: BP 120/53; PULSE 71; RESP 20; TEMP 37; O2SAT 100
[2021-06-04] MEDS: QUEtiapine FUMARATE XR 200 MG TAB.ER.24H 400 MG PO (22:09)
[2021-06-04] MEDS: LATANOPROST 0.005% OP SOLN 2.5 ML BTL 1 DROP EACH EYE (22:10)
[2021-06-05 06:00] VITALS: BP 97/53; PULSE 82; RESP 20; TEMP 36.8; O2SAT 97
[2021-06-05] MEDS: LEVOTHYROXINE SODIUM 88 MCG TABLET PO (06:42)
[2021-06-05] MEDS: HYDROcodone/acetaminophen (*CRX) 5-325 MG TABLET 1 TAB PO ×2 (06:44→14:53)
[2021-06-05 07:44] LABS: Hemoglobin 9.3 g/dL (12.0-15.0); Mean Corpuscular HGB Conc 29.1 g/dl (32-36); Mean Corpuscular Hemoglobin 30.6 pg (26-34); Mean Corpuscular Volume 105.3 fl (80-100); Platelet Count Result 194 k/mm3 (150-375); Red Blood Count 3.04 M/mm3 (4.2-5.4); Red Cell Distribution Width 13.7 % (11.5-14.5); White Blood Count 3.7 K/mm3 (4.5-10.0)
[2021-06-05 08:00] VITALS: PULSE 82; RESP 20; O2SAT 97
[2021-06-05 08:08] LABS: Alanine Aminotransferase 22 U/L (4-35); Albumin Level 3.2 g/dL (3.5-5.1); Alkaline Phosphatase 54 U/L (38-126); Anion Gap 7 mmol/L (8-16); Aspartate Amino Transferase 57 U/L (14-36); Bilirubin,Total 0.3 mg/dL (0.2-1.3); Blood Urea Nitrogen 7 mg/dL (7-17); Calcium 8.5 mg/dL (8.4-10.2); Carbon Dioxide 19 mmol/L (22-30); Chloride 108 mmol/L (98-107); Estimated CRCL calculation 73 ml/min; Estimated Glomerular Filt Rate > 60; Glucose 89 mg/dL (65-110); Sodium 134 mmol/L (137-145)
--- NOTE | 2021-06-05 08:22 | PCOTNOTE ---
Attempted OT evaluation this morning. Patient states she can't do therapy right now and to come back when she feels better . Educated patient on the importance of activity and getting out of bed. She continued to decline at this time. Will continue to attempt.
[2021-06-05] MEDS: QUEtiapine FUMARATE XR 50 MG TAB.ER.24H PO (08:57)
[2021-06-05] MEDS: PANTOPRAZOLE 40 MG TABLET PO (08:57)
[2021-06-05] MEDS: levETIRAcetam 250 MG TABLET PO ×2 (08:57→17:21)
[2021-06-05] MEDS: hydrOXYzine pamoate 25 MG CAPSULE PO (08:58)
[2021-06-05] MEDS: DULoxetine HCL 60 MG CAPSULE.DR PO (08:58)
--- NOTE | 2021-06-05 09:21 | PM.PNORT ---
Progress Note: A&P Assessment and Plan (1) Bimalleolar ankle fracture: Qualifiers: Encounter type: initial encounter Fracture type: closed Laterality: left Qualified Code(s): S82.842A - Displaced bimalleolar fracture of left lower leg, initial encounter for closed fracture Code(s): S82.843A - Displaced bimalleolar fracture of unspecified lower leg, initial encounter for closed fracture Status: Acute Assessment and Plan: left ankle bimalleolar fracture. Currently with splint in place. Plan for continued non operative treatment at this time. Continue PT/OT to mobilize patient up to chair, nonweightbearing left leg. Pain control. Disposition when medically stable. We will continue follow. Subjective Subjective Date/Time Seen: 06/05/21 09:21 Principal diagnosis: left ankle fracture Interval history: no new complaints. Up out of bed yesterday. Exam HENMT: Head: normal to inspection, normocephalic and atraumatic Eyes: Conjunctivae: conjunctivae normal Sclera: sclerae normal Neck: Neck: supple and nontender Chest: Chest palpation & inspection: normal inspection of the chest Resp: Effort & Inspection: normal respiratory effort and no audible wheezes Cardio: Rate: regular rate Rhythm: regular rhythm : General: Yes deferred Skin: General skin exam: no rashes or lesions noted Extrem: General: capillary refill normal Right upper extremity: normal capillary refill and shoulder/upper arm ecchymosis Left upper extremity: normal to inspection Right lower extremity: normal to inspection and hip/thigh Details: normal to inspection Left lower extremity: hip/thigh Details: normal to inspection, knee Details: abnormal to inspection ( midline incision well healed) and tenderness Location: of the medial joint line; no swelling, no ecchymosis and no unusual warmth and ankle (no calf tenderness) Details: abnormal to inspection ( Splint in place), tenderness ( lateral malleolus, anterior ankle and medial ankle), swelling ( moderate anterior ankle, moderate lateral ankle), abnormal ROM ( Minimal motion secondary to fracture), ecchymosis, crepitus and other ( good capillary refill in toes, 2+ DP pulse, light touch sensation intact) Psych: Affect: normal affect Objective Data Vital Signs Vital Signs: Vital Signs - 24 hr 06/04/21 14:00 06/04/21 22:00 06/05/21 06:00 Temperature 98.8 F 98.6 F 98.3 F Pulse Rate 69 71 82 Respiratory Rate 20 20 20 Blood Pressure 109/43 L 120/53 L 97/53 L Pulse Oximetry 99 100 97 Intake/Output Intake/Output: Intake & Output 06/02/21 06/03/21 06/04/21 06/05/21 23:59 23:59 23:59 23:59 Intake Total 1999 5140 2270 450 Output Total 2750 985 6913 1550 Balance 525 0122 -0351 -2149 Meds/Results Medications: Active Medications Generic Name Dose Route Start Last Admin Trade Name Freq PRN Reason Stop Dose Admin Hydrocodone Bitart/Acetaminophen 1 tab 06/02/21 23:19 06/05/21 06:44 Hydrocodone/Acetaminophen (*Crx) 5-325 Mg Tablet PO 1 tab Q6H PRN Administration Pain Rated 4-6 Calcium Carbonate 200 mg 06/04/21 13:22 06/04/21 13:33 Calcium Carbonate (Tums) 500 Mg (200 Mg Elemental) PO 200 mg Q6H PRN Administration Indigestion Duloxetine HCl 60 mg 06/03/21 09:00 06/05/21 08:58 Duloxetine Hcl 60 Mg Capsule.Dr PO 60 mg DAILY ORIN Administration Ergocalciferol unit 06/03/21 09:00 Ergocalciferol 50,000 Unit Capsule PO DAILY ORIN Hydroxyzine Pamoate 25 mg 06/03/21 09:00 06/05/21 08:58 Hydroxyzine Pamoate 25 Mg Capsule PO 25 mg DAILY ORIN Administration Sodium Chloride 1,000 mls @ 125 mls/hr 06/02/21 10:15 06/05/21 08:55 Normal Saline Iv IV CONT Not Given .Q8H ORIN Latanoprost 1 drop 06/02/21 21:00 06/04/21 22:10 Latanoprost 0.005% Op Soln 2.5 Ml Btl EACH EYE 1 drop HS ORIN Administration Levetiracetam 250 mg 06/03/21 09:00 06/05/21 08:57 Levetiracetam 250 Mg Tablet PO
--- NOTE | 2021-06-05 10:14 | PM.IMPN ---
Progress Note: A&P Assessment and Plan (1) Fall from ground level: Code(s): W18.30XA - Fall on same level, unspecified, initial encounter Status: Acute Assessment and Plan: Patient reports a mechanical fall at home and denies antecedent symptoms. She subsequently had a mechanical fall in the ED. Continue with fall precautions Appreciate PT/OT eval. Nonweightbearing left leg per Orthopedic surgery (2) Displaced bimalleolar fracture of left ankle: Code(s): S82.842A - Displaced bimalleolar fracture of left lower leg, initial encounter for closed fracture Status: Acute Assessment and Plan: Ankle x-ray showed fracture of the left medial and lateral malleoli. Fracture was reduced in the ED and left ankle is splinted. Appreciate orthopedic surgery consultation Planning for conservative management at this time Analgesics available as needed Continue with therapy, nonweightbearing left leg as noted above Care coordination following. Considering SNF while increasing mobility. (3) Rhabdomyolysis: Qualifiers: Rhabdomyolysis type: non-traumatic Qualified Code(s): M62.82 - Rhabdomyolysis Code(s): M62.82 - Rhabdomyolysis Status: Acute Assessment and Plan: Secondary to fall. CK 1246 at presentation and peakedat 1559. Improved today at 952 Continue IV fluid rehydration, decrease fluids to 90 ml/hr Trend CK. Monitor liver enzymes Urine output is good. Continue with Rao and monitor I&O (4) Acute kidney injury: Code(s): N17.9 - Acute kidney failure, unspecified Status: Acute Assessment and Plan: Presumably due to rhabdomyolysis. Creatinine 1.1 at presentation has improved to 0.7 today with IV fluids. Monitor BMP daily (5) Hyponatremia: Code(s): E87.1 - Hypo-osmolality and hyponatremia Status: Acute Assessment and Plan: [place] to be secondary to dehydration. Sodium levels remaining stable. 134 today. Continue with IV fluids for treatment of rhabdomyolysis Monitor BMP daily (6) Normocytic anemia: Code(s): D64.9 - Anemia, unspecified Status: Acute Assessment and Plan: Hgb 10.5 at presentation with slight decline which is likely dilutional. No signs or symptoms to suggest active bleeding and vital signs are stable. . Iron , TIBC, and ferritin wnl with low iron saturation. B12 and folate wnl. Monitor H&H. Remaining stable. (7) Psychiatric illness: Code(s): F99 - Mental disorder, not otherwise specified Status: Acute Assessment and Plan: No acute issues. Continue quetiapine and duloxetine. (8) Hypothyroidism: Code(s): E03.9 - Hypothyroidism, unspecified Status: Chronic Assessment and Plan: TSH wnl Continue levothyroxine Subjective Date/time seen: 06/05/21 10:14 Interval history: Date of service: 06/05/2021 Krys Varela is a 70-year-old female with a history of hypertension, hypothyroidism, bipolar disorder, hepatitis-C, and seizure disorder who is seen in follow-up for bimalleolar left ankle fracture. She is feeling well. Continues to endorse ankle pain that she rates as 8/10. Also complains of back pain which she feels is due to lying in bed. She feels she is doing well with therapy. Otherwise, no concerns. Denies nausea, vomiting, fever, chills, shortness breath, cough, chest pain. No dizziness or lightheadedness. She still has not had a bowel movement. No problems with her Rao catheter. Review of Systems Review of Systems: All systems reviewed & are unremarkable except as noted in HPI and below Exam Narrative: Ms. Varela is a well-nourished, well-appearing 70-year-old female who is lying supine in bed. She appears comfortable and is in NARD. Neuro: awake, alert and oriented x4. Speech clear, no focal neuro deficits noted. HEENMT: normocephalic, atraumatic, EOMI, scler
[2021-06-05 13:23] LABS: Creatine Kinase 952 U/L (30-135)
[2021-06-05 14:00] VITALS: BP 121/50; PULSE 74; RESP 18; TEMP 36.6; O2SAT 99
[2021-06-05] MEDS: polyethylene glycoL 3350 17 GM POWD.PACK PO (14:54)
[2021-06-05] MEDS: QUEtiapine FUMARATE XR 200 MG TAB.ER.24H 400 MG PO (20:17)
[2021-06-05] MEDS: LATANOPROST 0.005% OP SOLN 2.5 ML BTL 1 DROP EACH EYE (20:17)
[2021-06-05] MEDS: DOCUSATE SODIUM 100 MG CAPSULE PO (20:17)
[2021-06-05 21:50] VITALS: BP 126/47; PULSE 66; RESP 18; TEMP 36.6; O2SAT 99
[2021-06-06 05:45] VITALS: BP 122/46; PULSE 77; RESP 18; TEMP 36.6; O2SAT 95
[2021-06-06] MEDS: LEVOTHYROXINE SODIUM 88 MCG TABLET PO (06:22)
[2021-06-06] MEDS: HYDROcodone/acetaminophen (*CRX) 5-325 MG TABLET 1 TAB PO ×2 (06:22→12:27)
[2021-06-06 06:59] LABS: Hematocrit 28.5 % (37.0-47.0); Hemoglobin 9.1 g/dL (12.0-15.0); Mean Corpuscular HGB Conc 31.9 g/dl (32-36); Mean Corpuscular Hemoglobin 30.3 pg (26-34); Mean Platelet Volume 9.1 fl (7.4-10.4); Platelet Count Result 221 k/mm3 (150-375); Red Cell Distribution Width 13.4 % (11.5-14.5); White Blood Count 3.5 K/mm3 (4.5-10.0)
[2021-06-06 07:13] LABS: Alanine Aminotransferase 24 U/L (4-35); Albumin Level 3.2 g/dL (3.5-5.1); Alkaline Phosphatase 55 U/L (38-126); Anion Gap 4 mmol/L (8-16); Aspartate Amino Transferase 51 U/L (14-36); Bilirubin,Total 0.4 mg/dL (0.2-1.3); Blood Urea Nitrogen 11 mg/dL (7-17); Calcium 8.5 mg/dL (8.4-10.2); Carbon Dioxide 23 mmol/L (22-30); Chloride 109 mmol/L (98-107); Creatine Kinase 823 U/L (30-135); Estimated CRCL calculation 64 ml/min; Estimated Glomerular Filt Rate > 60; Glucose 90 mg/dL (65-110); Potassium 3.9 mmol/L (3.4-5.0); Sodium 136 mmol/L (137-145)
[2021-06-06 08:00] VITALS: PULSE 77; RESP 18; O2SAT 95
[2021-06-06] MEDS: hydrOXYzine pamoate 25 MG CAPSULE PO (09:03)
[2021-06-06] MEDS: DOCUSATE SODIUM 100 MG CAPSULE PO (09:03)
[2021-06-06] MEDS: polyethylene glycoL 3350 17 GM POWD.PACK PO (09:03)
[2021-06-06] MEDS: levETIRAcetam 250 MG TABLET PO (09:03)
[2021-06-06] MEDS: DULoxetine HCL 60 MG CAPSULE.DR PO (09:03)
[2021-06-06] MEDS: PANTOPRAZOLE 40 MG TABLET PO (09:03)
[2021-06-06] MEDS: QUEtiapine FUMARATE XR 50 MG TAB.ER.24H PO (09:04)
--- NOTE | 2021-06-06 09:07 | PM.PNORT ---
Progress Note: A&P Assessment and Plan (1) Bimalleolar ankle fracture: Qualifiers: Encounter type: initial encounter Fracture type: closed Laterality: left Qualified Code(s): S82.842A - Displaced bimalleolar fracture of left lower leg, initial encounter for closed fracture Code(s): S82.843A - Displaced bimalleolar fracture of unspecified lower leg, initial encounter for closed fracture Status: Acute Assessment and Plan: Left ankle bimalleolar fracture, splint in place. Plan for continued non operative treatment at this time. Continue PT/OT to mobilize patient up to chair, nonweightbearing left leg. Pain control. Disposition when medically stable. We will continue follow. Subjective Subjective Date/Time Seen: 06/06/21 09:07 Left Ankle Fracture. No new complaints. Feeling well. Review of Systems Review of Systems: All systems reviewed & are unremarkable except as noted in HPI and below Exam HENMT: Head: normal to inspection, normocephalic and atraumatic Eyes: Conjunctivae: conjunctivae normal Sclera: sclerae normal Neck: Neck: supple and nontender Chest: Chest palpation & inspection: normal inspection of the chest Resp: Effort & Inspection: normal respiratory effort and no audible wheezes Cardio: Rate: regular rate Rhythm: regular rhythm : General: Yes deferred Skin: General skin exam: no rashes or lesions noted Extrem: General: capillary refill normal Right upper extremity: normal capillary refill and shoulder/upper arm ecchymosis Left upper extremity: normal to inspection Right lower extremity: normal to inspection and hip/thigh Details: normal to inspection Left lower extremity: hip/thigh Details: normal to inspection, knee Details: abnormal to inspection ( midline incision well healed) and tenderness Location: of the medial joint line; no swelling, no ecchymosis and no unusual warmth and ankle (no calf tenderness) Details: abnormal to inspection ( Splint in place), tenderness ( lateral malleolus, anterior ankle and medial ankle), swelling ( moderate anterior ankle, moderate lateral ankle), abnormal ROM ( Minimal motion secondary to fracture), ecchymosis, crepitus and other ( good capillary refill in toes, 2+ DP pulse, light touch sensation intact) Psych: Affect: normal affect Objective Data Vital Signs Vital Signs: Vital Signs - 24 hr 06/05/21 14:00 06/05/21 21:50 06/06/21 05:45 Temperature 36.6 C 36.6 C 36.6 C Pulse Rate 74 66 77 Respiratory Rate 18 18 18 Blood Pressure 121/50 L 126/47 L 122/46 L Pulse Oximetry 99 99 95 Intake/Output Intake/Output: Intake & Output 06/03/21 06/04/21 06/05/21 06/06/21 23:59 23:59 23:59 23:59 Intake Total 5140 2270 2040 750 Output Total 750 3450 2500 1400 Balance 6013 -8210 -460 -725 Meds/Results Medications: Active Medications Generic Name Dose Route Start Last Admin Trade Name Freq PRN Reason Stop Dose Admin Hydrocodone Bitart/Acetaminophen 1 tab 06/02/21 23:19 06/06/21 06:22 Hydrocodone/Acetaminophen (*Crx) 5-325 Mg Tablet PO 1 tab Q6H PRN Administration Pain Rated 4-6 Calcium Carbonate 200 mg 06/04/21 13:22 06/04/21 13:33 Calcium Carbonate (Tums) 500 Mg (200 Mg Elemental) PO 200 mg Q6H PRN Administration Indigestion Docusate Sodium 100 mg 06/05/21 21:00 06/06/21 09:03 Docusate Sodium 100 Mg Capsule PO 100 mg Q12HR ORIN Administration Duloxetine HCl 60 mg 06/03/21 09:00 06/06/21 09:03 Duloxetine Hcl 60 Mg Capsule.Dr PO 60 mg DAILY ORIN Administration Ergocalciferol unit 06/03/21 09:00 Ergocalciferol 50,000 Unit Capsule PO DAILY ORIN Hydroxyzine Pamoate 25 mg 06/03/21 09:00 06/06/21 09:03 Hydroxyzine Pamoate 25 Mg Capsule PO 25 mg DAILY ORIN Administration Sodium Chloride 1,000 mls @ 90 mls/hr 06/02/21 10:15 06/05/21 08:55 Normal Saline Iv IV CONT Not Given .[id number] [facility], [facility]–1983 Latanoprost 1 drop 06/02/21 21:00 06/05/21
--- NOTE | 2021-06-06 09:52 | PCPTNOTE ---
Patient declined therapy at this time stating I was told that I will need to go to a retirement for rehab and that has upset me. Patient request PT return later. PT will continue to follow per plan of care.
[2021-06-06 12:51] LABS: EDCOVIDSCREEN Negative (Negative)
[2021-06-06 14:00] VITALS: BP 138/60; PULSE 82; RESP 18; TEMP 37.2; O2SAT 98
--- NOTE | 2021-06-06 16:20 | PM.DS ---
DS: Admitting Diagnosis Admitting Diagnosis Fall, bimalleolar ankle fracture DS: Discharge Diagnosis Discharge Diagnosis (1) Fall from ground level: Code(s): W18.30XA - Fall on same level, unspecified, initial encounter Status: Acute Assessment and Plan: Patient reports a mechanical fall at home without antecedent symptoms. She subsequently had a mechanical fall in the ED. Fall precautions implemented and discussed at length. She was evaluated by PT/OT and will continue therapy at SNF. Nonweightbearing left leg per Ortho. (2) Displaced bimalleolar fracture of left ankle: Code(s): S82.842A - Displaced bimalleolar fracture of left lower leg, initial encounter for closed fracture Status: Acute Assessment and Plan: Ankle x-ray showed fracture of the left medial and lateral malleoli. Fracture was reduced in the ED and left ankle was splinted. She was evaluated by Orthopedic surgery. Opted for conservative management. Continue PT/OT at SNF. Nonweightbearing of the left leg. Follow-up with Dr. Huerta as an outpatient. Aspirin for DVT prophylaxis per Ortho surgery (3) Rhabdomyolysis: Qualifiers: Rhabdomyolysis type: non-traumatic Qualified Code(s): M62.82 - Rhabdomyolysis Code(s): M62.82 - Rhabdomyolysis Status: Acute Assessment and Plan: Secondary to fall. CK 1246 at presentation and peaked at 1559. Improved with IV fluids down to 823. LFTs were monitored. Urine output good. (4) Acute kidney injury: Code(s): N17.9 - Acute kidney failure, unspecified Status: Acute Assessment and Plan: Presumably due to rhabdomyolysis. Creatinine 1.1 at presentation has improved to 0.8. (5) Hyponatremia: Code(s): E87.1 - Hypo-osmolality and hyponatremia Status: Acute Assessment and Plan: [place] to be secondary to dehydration. Sodium was 128 at presentation and improved to 136 at appropriate rate (6) Normocytic anemia: Code(s): D64.9 - Anemia, unspecified Status: Acute Assessment and Plan: Hgb 10.5 at presentation with slight decline which was likely dilutional. No signs or symptoms to suggest active bleeding and vital signs remained stable. H&H reamined stable at around 9.0. (7) Psychiatric illness: Code(s): F99 - Mental disorder, not otherwise specified Status: Acute Assessment and Plan: No acute issues. Continue quetiapine and duloxetine. (8) Hypothyroidism: Code(s): E03.9 - Hypothyroidism, unspecified Status: Chronic Assessment and Plan: TSH wnl. Continue levothyroxine DS: Summary Hospital Course Hospital Course: Date of admission: 06/02/2021 Date of discharge: 06/06/2021 Krys Varela is a 70-year-old female with a history of hypertension, hypothyroidism, bipolar disorder, hepatitis-C, and seizure disorder who presented to the emergency department on 06/02/2021 from home after a mechanical fall. Family reported that she does have frequent falls. In the ED, she had a fall after slipping on her urine on the floor and was noted to have subsequent ankle deformity. The fracture was reduced in the ED and splinted. On presentation to the ED, her vital signs are stable, she was afebrile, WBC elevated at 15.9, felt to be due to stress reaction from fall, hemoglobin 10.5, her crit 31.8, CK 1246, troponin negative, sodium 128, creatinine 1.[address] with no acute findings, CXR with no acute cardiopulmonary findings, knee x-ray with no joint effusion or osseous abnormality, and ankle x-ray with evidence of bimalleolar fracture s/p reduction. She was admitted to the hospitalist service for further evaluation management was seen in consultation by Orthopedic surgery. Please see above for further details. Fracture was treated conservatively. She will continue with therapy. She was feeling well and her pain was well controlled. Given her overall improvement
[2021-06-08 08:25] LABS: Osmolality, Urine 399 mOsm/kg (50-1200)
== END 2021-06-06 18:30 ==
LOC: ANHED 10:10 → ANH3MEDSUR 06-06 11:53
PROVIDERS: Physician Assistant; Admitting Provider Family Medicine; Emergency Provider Emergency Medicine; PCP Nurse Practitioner; Visit Provider Internal Medicine
DX: M62.82 Rhabdomyolysis (principal); S82.842A Displaced bimalleolar fracture of left lower leg, initial encounter for closed fracture; N17.9 Acute kidney failure, unspecified; W19.XXXA Unspecified fall, initial encounter; D64.9 Anemia, unspecified; E03.9 Hypothyroidism, unspecified; F03.90 Unspecified dementia, unspecified severity, without behavioral disturbance, psychotic disturbance, mood disturbance, and anxiety; E87.1 Hypo-osmolality and hyponatremia; F31.9 Bipolar disorder, unspecified; F41.8 Other specified anxiety disorders; R56.9 Unspecified convulsions; I10 Essential (primary) hypertension; Z20.822 Contact with and (suspected) exposure to COVID-19; Z87.891 Personal history of nicotine dependence
CPT/HCPCS: 36415; 36600; 51701; 70450; 71046; 73564; 73590; 73600; 73610; 74177; 80048; 80053; 80307; 81003; 82140; 82550; 82570; 82607; 82728; 82746; 82805; 82948; 83540; 83550; 83605; 83735; 83930; 83935; 84295; 84300; 84443; 84484; 85025; 85027; 85610; 85652; 85730; 86140; 87040; 87426; 93005; 96360; 96361; 96374; 97110; 97163; 97165; 97530; 97535; 99285; A9270; C9803; G0378; G0379; J2270; J2405; J2704; J3010; J7030; Q9967

== ENCOUNTER 2021-09-22 09:26 | Emergency (ER) | payer OTHER, SELFPAY ==
--- NOTE | ~2021-09-22 | CT_ITS ---
EXAMINATION: CT abdomen pelvis w con INDICATION: Abdominal pain and vomiting TECHNIQUE: Computed tomographic images of the abdomen and pelvis were obtained after the administrati on of 100 cc of Omnipaque 350 intravenous contrast. The dose-length product (DLP) was 468.53 mGy-cm. Automated exposure control and iterative reconstruction technique were employed. COMPARISON: 06/02/2021 FINDINGS: The lung bases are clear. The heart size is normal. There is a small sliding hiatal hernia. There appears to be circumferential wall thickening of the distal esophagus. Punctate calcifications in an otherwise normal spleen likely represent healed granulomatous disease. The liver, pancreas, ga llbladder, and adrenal glands are normal. The kidneys are unremarkable. No pathologically enlarged ab dominal or pelvic lymph nodes are identified. There is no free intraperitoneal gas or evidence of bow el obstruction. There is severe lumbar spondylosis. There is advanced osteoarthritis of the left hip. IMPRESSION: 1. Small sliding hiatal hernia with circumferential wall thickening of the distal esophagus which cou ld reflect esophagitis. Reviewed, dictated and finalized at location A. [employer] IMPRESSION: 1. Small sliding hiatal hernia with circumferential wall thickening of the dist al esophagus which could reflect esophagitis.
[2021-09-22 09:31] VITALS: BP 127/62; PULSE 67; RESP 18; O2SAT 100
[2021-09-22 09:56] LABS: Basophils Absolute Auto 0.1 K/mm3 (0.0-0.1); Basophils Percent Auto 0.6 % (0.2-1.2); Eosinophils Percent Auto 0.1 % (0-4.4); Hematocrit 35.2 % (37.0-47.0); Immature Granulocyte Absolute 0.03 K/mm3 (0.00-0.031); Immature Granulocyte Percent A 0.3 % (0-0.5); Lymphocytes Absolute Auto 2.96 K/mm3 (0.9-3.2); Lymphocytes Percent Auto 30.3 % (18.3-44.2); Mean Corpuscular HGB Conc 34.1 g/dl (32-36); Mean Corpuscular Hemoglobin 31.5 pg (26-34); Mean Corpuscular Volume 92.4 fl (80-100); Monocytes Absolute Auto 0.9 K/mm3 (0.1-0.6); Monocytes Percent Auto 8.9 % (2.6-8.5); Neutrophils Absolute Auto 5.8 K/mm3 (1.3-6.7); Neutrophils Percent Auto 59.8 % (45.5-73.1); Platelet Count Result 259 k/mm3 (150-375); Red Blood Count 3.81 M/mm3 (4.2-5.4); Red Cell Distribution Width 13.7 % (11.5-14.5); White Blood Count 9.8 K/mm3 (4.5-10.0)
[2021-09-22 10:04] LABS: Alanine Aminotransferase 12 U/L (4-35); Albumin Level 4.1 g/dL (3.5-5.1); Alkaline Phosphatase 95 U/L (38-126); Anion Gap 9 mmol/L (8-16); Aspartate Amino Transferase 26 U/L (14-36); Bilirubin,Total 0.6 mg/dL (0.2-1.3); Blood Urea Nitrogen 22 mg/dL (7-17); Carbon Dioxide 30 mmol/L (22-30); Chloride 97 mmol/L (98-107); Estimated CRCL calculation 67 ml/min; Estimated Glomerular Filt Rate > 60; Glucose 100 mg/dL (65-110); Lipase 252 U/L (23-300); Potassium 3.1 mmol/L (3.4-5.0); Sodium 136 mmol/L (137-145)
[2021-09-22 10:10] LABS: Add Urine Microscopic? YES; Appearance Urine Cloudy (Clear); Bacteria Urine Trace /hpf; Bilirubin Urine Negative (Negative); Blood Urine Negative (Negative); Color Urine Amber (Yellow); Glucose Urine UA Negative (Negative); Ketones Urine 1+ mg/dL (Negative); Leukocyte Esterase Ur Negative LEU/UL (Negative); Mucus Urine Few /lpf; Nitrate Urine Negative (Negative); Protein Urine Negative (Negative); RBC Urine 0-2 /hpf (0-2)
[2021-09-22] MEDS: PROCHLORPERAZINE EDISYLATE 10 MG/2 ML VIAL IV PUSH (11:03)
--- NOTE | 2021-09-22 13:57 | ED.ABDPAIN ---
HPI - Abdominal Pain General Chief Complaint: Abdominal Pain Stated Complaint: N/V Time Seen by Provider: 09/22/21 09:42 Source: patient Mode of arrival: ambulatory Limitations: no limitations History of Present Illness HPI narrative: 70-year-old female Here for abdominal pain Patient complains of a 1 day history of abdominal pain followed today by nausea and vomiting When asked if she can indicate with one finger what area of her abdomen is uncomfortable she uses both hands and rubs them over her entire abdomen She's got no diarrhea, no blood in her stool, no blood in the emesis She has not taken anything for this at home Related Data Home Medications Medication Instructions Recorded Confirmed duloxetine 60 mg PO DAILY 06/02/21 07/11/21 ergocalciferol (vitamin D2) 1,250 mcg PO DAILY 06/02/21 07/11/21 [Vitamin D2] hydroxyzine pamoate 25 mg PO DAILY 06/02/21 07/11/21 latanoprost 1 drp EACH EYE HS 06/02/21 07/11/21 levothyroxine 88 mcg PO DAILY 06/02/21 07/11/21 omeprazole 20 mg PO DAILY 06/02/21 07/11/21 quetiapine 50 mg PO DAILY 06/02/21 07/11/21 quetiapine 400 mg PO HS 06/02/21 07/11/21 Allergies Allergy/AdvReac Type Severity Reaction Status Date / Time No Known Allergies Allergy Verified 09/22/21 09:34 Review of Systems Review of Systems: All systems reviewed & are unremarkable except as noted in HPI and below Constitutional: Constitutional: Reports no additional constitutional complaints, Denies chills, Denies fever(s) and Denies headache(s) Eyes: Eyes: Reports no additional eye complaints and Denies change in vision ENT: Denies headache(s) and Denies sore throat Cardiovascular: Cardiovascular: Denies chest pain and Denies dyspnea Respiratory: Respiratory: Denies cough and Denies dyspnea Gastrointestinal: Gastrointestinal: Reports abdominal pain, Denies diarrhea, Reports nausea and Reports vomiting Genitourinary: Genitourinary: Denies urinary frequency and Denies dysuria Musculoskeletal: Musculoskeletal: Denies deformity, Denies arthralgias, Denies joint swelling and Denies numbness Integumentary/Breasts: Skin/Breast: Denies rash and Denies wounds Neurologic: Denies headache(s), Denies focal weakness and Denies numbness Psychiatric: Psychiatric: Reports no additional psychiatric complaints Endocrine: Endocrine: Reports no additional endocrine complaints Hematologic/Lymphatic: Hematologic/Lymphatic: Reports no additional hematologic/lymphatic complaints Allergic/Immunologic: Allergic/Immunologic: Reports no additional allergic/immunologic complaints PMF Past Medical History Medical History Anxiety Arthritis Bipolar disorder Depression History suicide attempt at age 17. Fibromyalgia Gastroesophageal reflux disease Hepatitis C (2010) Status post interferon. Hypertension Hypothyroidism Seizure disorder Surgical History Surgical History History of ankle surgery (04/21/10) ORIF of left ankle fracture with subsequent hardware removal per Dr. Colon. History of arthroplasty of left knee With revision. History of tubal ligation (1975) Social History Social History Social History: The patient lives in [place]. She is disabled. Former smoker. History of alcohol abuse, she went through alcoholics anonymous and has not drank for quite some time though she could not further quantify. No drug use. Idalmis Sheppard, sister, is her emergency contact. Code status: Full code. Smoking status: Former smoker Alcohol intake: never Substance use: unknown Additional occupation/education comments: Pt states she is disabled. Gender identity (if verbalized by the patient): Female Exam Const: General: cooperative and no acute distress Orientation/consciousness: patient oriented x3 (alert) HENMT: Head: normal to inspect
--- NOTE | 2021-09-22 14:09 | PC.NURSE ---
ATTEMPTED TO CALL JJ DOTSON [phone] THE REPORTED SIBLING OF [place] AND A MAN ANSWERED AND SAID HE IS IN [facility] AND THAT JJ WASN'T WITH HIM. THEN ATTEMPTED TO CALL DOCUMENTED CELL PHONE [phone] OF JJ AND NUMBER HAS BEEN DISCONNECTED.
[2021-09-22 14:20] VITALS: BP 105/64; PULSE 73; RESP 16; O2SAT 98
== END 2021-09-22 14:20 | disposition home or self-care (01) ==
PROVIDERS: Emergency Provider Emergency Medicine; PCP Internal Medicine
DX: K20.90 Esophagitis, unspecified without bleeding (principal); I10 Essential (primary) hypertension; E03.9 Hypothyroidism, unspecified; Z87.891 Personal history of nicotine dependence
CPT/HCPCS: 36415; 51701; 74177; 80053; 81001; 83690; 85025; 96374; 99284; J0780; Q9967

== ENCOUNTER 2022-04-26 20:51 | Emergency (ER) | payer OTHER, SELFPAY ==
--- NOTE | ~2022-04-26 | XR_ITS ---
XR ankle LT min 3V 04/26/2022 21:17 Indication: Left ankle pain Procedure: 2 views left ankle Comparison: 07/11/2020 Findings: There are displaced medial and lateral malleolar fractures with lateral subluxation of the talus with respect to the tibia. Osteopenia. There is soft tissue swelling. Impression: 1: Laterally displaced bimalleolar fracture. Reviewed, dictated and finalized at location A. Impression: 1: Laterally displaced bimalleolar fracture.
[2022-04-26 21:02] VITALS: BP 149/61; PULSE 80; RESP 14; TEMP 37.2; O2SAT 95
--- NOTE | 2022-04-26 22:43 | ED.EXTPRO ---
HPI - Extremity Problem General Chief complaint: Extremity Problem,Nontraumatic Stated complaint: lt ankle pain Time Seen by Provider: 04/26/22 21:44 History of Present Illness HPI Narrative: Patient is a 71-year-old female who presents ER with left ankle pain. Patient has history of bimalleolar fracture that did not undergo surgical repair due to being a poor candidate. She continues to ambulate on it. No recent trauma or fall or injury. She has no new swelling or redness. Reports she had increased pain over the last day and does not have any medication to treat it. Related Data Home Medications Medication Instructions Recorded Confirmed duloxetine 60 mg capsule,delayed 60 mg PO DAILY 06/02/21 11/28/21 release ergocalciferol (vitamin D2) 1,250 1,250 mcg PO DAILY 06/02/21 11/28/21 mcg (50,000 unit) capsule (Vitamin D2) hydroxyzine pamoate 25 mg capsule 25 mg PO DAILY 06/02/21 11/28/21 latanoprost 0.005 % eye drops 1 drp EACH EYE HS 06/02/21 11/28/21 levothyroxine 88 mcg tablet 88 mcg PO DAILY 06/02/21 11/28/21 omeprazole 20 mg capsule,delayed 20 mg PO DAILY 06/02/21 11/28/21 release quetiapine 400 mg tablet,extended 400 mg PO HS 06/02/21 11/28/21 release 24 hr quetiapine 50 mg tablet,extended 50 mg PO DAILY 06/02/21 11/28/21 release 24 hr Allergies Allergy/AdvReac Type Severity Reaction Status Date / Time No Known Allergies Allergy Verified 11/28/21 10:05 Review of Systems Constitutional: Constitutional: Denies chills and Denies fever(s) Cardiovascular: Cardiovascular: Denies chest pain and Denies radiating jaw, neck or arm pain Musculoskeletal: Musculoskeletal: Reports arthralgias, Denies joint swelling and Denies muscle cramps Neurologic: Denies focal weakness and Denies numbness PMF Past Medical History Medical History Anxiety Arthritis Bipolar disorder Depression History suicide attempt at age 17. Fibromyalgia Gastroesophageal reflux disease Hepatitis C (2010) Status post interferon. Hypertension Hypothyroidism Seizure disorder Surgical History Surgical History History of ankle surgery (04/21/10) ORIF of left ankle fracture with subsequent hardware removal per Dr. Colon. History of arthroplasty of left knee With revision. History of tubal ligation (1975) Social History Social History Social History: The patient lives in [place]. She is disabled. Former smoker. History of alcohol abuse, she went through alcoholics anonymous and has not drank for quite some time though she could not further quantify. No drug use. Idalmis Sheppard, sister, is her emergency contact. Code status: Full code. Alcohol intake: never Substance use: unknown Additional occupation/education comments: Pt states she is disabled. Gender identity (if verbalized by the patient): Female Exam Narrative: GENERAL: Well-appearing, well-nourished, and in no acute distress. HEAD: Normocephalic, atraumatic. CHEST: Clear to auscultation. No respiratory distress. HEART: Regular rate and rhythm. Normal peripheral pulses. EXTREMITIES: Focused exam left lower extremity shows deformity of the left ankle without point tenderness. Limited plantar flexion dorsiflexion due to deformity. No redness. Negative Homans' sign no edema. SKIN: Warm, dry, no rash. NEURO: No focal deficits. Alert and oriented x3. PSYCH: Normal mood and affect. Course Course Emergency Course: Will prescribe some [place] for home to take as needed for pain. Discussed that patient needs to follow-up with her orthopedic surgeon in regards to chronic pain in this joint or with her primary care physician. Chart review shows that patient was seen by Dr. Huerta and had missed multiple appointments and did not remain nonweightbearing during the early parts of her injury th
[2022-04-27 02:31] VITALS: BP 145/67; PULSE 88; RESP 16; O2SAT 99
== END 2022-04-27 02:34 | disposition home or self-care (01) ==
PROVIDERS: Emergency Provider Emergency Medicine
DX: S82.842D Displaced bimalleolar fracture of left lower leg, subsequent encounter for closed fracture with routine healing (principal); I10 Essential (primary) hypertension; E03.9 Hypothyroidism, unspecified; X58.XXXD Exposure to other specified factors, subsequent encounter
CPT/HCPCS: 73610; 99283

== ENCOUNTER 2022-05-12 08:30 | Emergency (ER) | payer OTHER, SELFPAY ==
--- NOTE | ~2022-05-12 | XR_ITS ---
EXAMINATION: XR ankle LT min 3V DATE: 05/12/2022 08:54 INDICATION: Left ankle pain and deformity TECHNIQUE: Anteroposterior, lateral, mortise, and additional oblique view of the ankle were obtained. COMPARISON: 04/26/2022 FINDINGS: There is an oblique fracture of the distal fibula which extends to the level of the tibial plafond. The distal fracture fragment is proximally migrated an overriding. There is a transverse fra cture of the medial malleolus at the level of the tibial plafond. The talus and bilateral malleoli ar e laterally subluxed. There are 20 degrees of tilt of the talus. Overall, findings are unchanged sinc e the comparison examination. No definite calcified callus has developed at the fracture sites there is mild osteoarthritis of the midfoot.. IMPRESSION: 1. No significant change to bilateral malleolar fracture with lateral displacement. Reviewed, dictated and finalized at location L. IMPRESSION: 1. No significant change to bilateral malleolar fracture with lateral displacem ent.
[2022-05-12 08:33] VITALS: BP 154/74; PULSE 79; RESP 20; TEMP 36.6; O2SAT 99
[2022-05-12] MEDS: HYDROcodone/acetaminophen (*CRX) 5-325 MG TABLET 1 TAB PO (09:10)
[2022-05-12 09:40] VITALS: TEMP 36.6
--- NOTE | 2022-05-12 09:44 | PC.NURSE ---
Patient states she cannot urinate on a bed n[place] but would like to be catheterized. EDP [place] aware.
--- NOTE | 2022-05-12 09:55 | ED.GENADULT ---
HPI - General Adult General Chief complaint: Fall Stated complaint: left ankle injury Source: RN notes reviewed History of Present Illness HPI narrative: Patient presents emergency department from home via EMS for left ankle pain. Patient has a history of a previous bimalleolar fracture she had not had it fixed secondary to being a poor surgical candidate and had ultimately missed several follow-up appointments with Dr. Huerta patient states that the ankle has been malformed for sometimes and she has been walking on it she states that she had been seen here few weeks ago and been placed on [place] but is now out of [place] and has been having pain in the ankle she denies any new trauma or injury she denies any numbness or weakness to the extremities denies any other pain Related Data Home Medications Medication Instructions Recorded Confirmed duloxetine 60 mg capsule,delayed 60 mg PO DAILY 06/02/21 11/28/21 release ergocalciferol (vitamin D2) 1,250 1,250 mcg PO DAILY 06/02/21 11/28/21 mcg (50,000 unit) capsule (Vitamin D2) hydroxyzine pamoate 25 mg capsule 25 mg PO DAILY 06/02/21 11/28/21 latanoprost 0.005 % eye drops 1 drp EACH EYE HS 06/02/21 11/28/21 levothyroxine 88 mcg tablet 88 mcg PO DAILY 06/02/21 11/28/21 omeprazole 20 mg capsule,delayed 20 mg PO DAILY 06/02/21 11/28/21 release quetiapine 400 mg tablet,extended 400 mg PO HS 06/02/21 11/28/21 release 24 hr quetiapine 50 mg tablet,extended 50 mg PO DAILY 06/02/21 11/28/21 release 24 hr Allergies Allergy/AdvReac Type Severity Reaction Status Date / Time No Known Allergies Allergy Verified 11/28/21 10:05 Review of Systems Review of Systems: Gen.: Denies fevers or chills Musculoskeletal: See HPI Neuro: Denies numbness, tingling, weakness Skin: Denies rash Endo: Denies DM PMFSH Past Medical History Medical History Anxiety Arthritis Bipolar disorder Depression History suicide attempt at age 17. Fibromyalgia Gastroesophageal reflux disease Hepatitis C (2010) Status post interferon. Hypertension Hypothyroidism Seizure disorder Surgical History Surgical History History of ankle surgery (04/21/10) ORIF of left ankle fracture with subsequent hardware removal per Dr. Colon. History of arthroplasty of left knee With revision. History of tubal ligation (1975) Social History Social History Social History: The patient lives in [place]. She is disabled. Former smoker. History of alcohol abuse, she went through alcoholics anonymous and has not drank for quite some time though she could not further quantify. No drug use. Idalmis Sheppard, sister, is her emergency contact. Code status: Full code. Alcohol intake: never Substance use: unknown Additional occupation/education comments: Pt states she is disabled. Gender identity (if verbalized by the patient): Female Exam Narrative: APPEARANCE: No acute distress, nontoxic, resting in bed Eyes: EOMI HEENT: Normocephalic, atraumatic, RESPIRATORY: No respiratory distress MUSCULOSKELETAl: Left ankle does have step-off deformity over medial aspect has mild diffuse tenderness no tenderness the proximal tibia no tenderness of the foot dorsalis pedis pulse 2+ neurovascular NEURO: Awake and alert. Following commands, speech normal, no focal deficits SKIN:: Warm, dry. Normal Color no rash or lesions Course Course Emergency Course: Reviewed the patient's old records. .? Patient seen by Dr. Huerta and had missed multiple appointments and did not remain nonweightbearing during the early parts of her injury thus leading her to develop nonunion and deformity of the ankle.? Patient was also prescribed a walking boot which she does not use.? She does use a walker at home.? Patient states she does feel comfortable returning home selene jorgensen
[2022-05-12 11:01] VITALS: BP 145/87; PULSE 76; RESP 16; O2SAT 98
== END 2022-05-12 11:05 | disposition home or self-care (01) ==
PROVIDERS: Emergency Provider Emergency Medicine
DX: S82.842K Displaced bimalleolar fracture of left lower leg, subsequent encounter for closed fracture with nonunion (principal); I10 Essential (primary) hypertension; E03.9 Hypothyroidism, unspecified; G40.909 Epilepsy, unspecified, not intractable, without status epilepticus; K21.9 Gastro-esophageal reflux disease without esophagitis; M19.90 Unspecified osteoarthritis, unspecified site; M79.7 Fibromyalgia; Z86.19 Personal history of other infectious and parasitic diseases; Z96.652 Presence of left artificial knee joint; Z87.891 Personal history of nicotine dependence; X58.XXXD Exposure to other specified factors, subsequent encounter
CPT/HCPCS: 51701; 73610; 99283; A9270

== ENCOUNTER 2022-06-27 11:15 | Emergency (ER) | payer OTHER, SELFPAY ==
--- NOTE | ~2022-06-27 | XR_ITS ---
EXAMINATION: XR ankle LT min 3V DATE: 06/27/2022 12:13 INDICATION: Chronic left ankle pain TECHNIQUE: Anteroposterior, mortise, and lateral views of the left ankle were obtained. COMPARISON: 05/12/2022 and 11/28/2021 FINDINGS: Diffuse osteopenia. Again seen are chronic fractures of the medial and lateral malleoli at the left a nkle, the former which appears nonunited and the latter with malunion. There is 1.5 cm lateral displa cement and 35 degree lateral/valgus angulation of the talar dome relative to the tibial plafond and. The medial and lateral malleolar fragments are similarly laterally displaced and laterally angulated in conjunction with the intervening talar dome. Resting secondary osteoarthritis at the ankle joint w ith cystic changes at the lateral side of the talar dome. Alignment in the visualized left foot appea rs normal. No other fractures identified. Additional mild to moderate polyarticular osteoarthritis in the left mid and hindfoot. Partially visualized intramedullary cement at the mid left tibial diaphys is at the distal aspect of a nonvisualized longstem left total knee arthroplasty are appreciated on r adiographs dated 06/02/2021. Soft tissue swelling about the ankle and distal lower leg. IMPRESSION: 1. No significant change in a bimalleolar fracture of the left ankle with lateral displacement and la teral angulation of the malleolar fragments as well as intervening talar dome. The lateral malleolar fragment appears to have healed in this position while the medial malleolar fragment appears to remai n nonunited. 2. 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 Reviewed, dictated and finalized at location A. IMPRESSION: 1. No significant change in a bimalleolar fracture of the left ankle with later al displacement and lateral angulation of the malleolar fragments as well as in tervening talar dome. The lateral malleolar fragment appears to have healed in this position while the medial malleolar fragment appears to remain nonunited. 2. 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
[2022-06-27 11:16] VITALS: BP 113/90; PULSE 81; RESP 16; TEMP 36.4; O2SAT 100
--- NOTE | 2022-06-27 12:08 | ED.LOWEXIN ---
HPI - Extremity Injury (Lower) General Chief Complaint: Extremity Injury, Lower Stated Complaint: ankle pain Time Seen by Provider: 06/27/22 11:21 History of Present Illness HPI Narrative: 71-year-old female presents to the emergency room for continued left ankle pain. According to record review, patient sustained a bimalleolar fracture approximately 1 year ago. Her fracture was reduced and splinted and she was instructed to remain nonweightbearing. Patient seen Dr. Huerta 6 weeks later and was told that she was not a surgical candidate. Patient was given a surgical boot and was told to limit her weightbearing. Patient was again seen with Dr. Villegas 12 months later with obvious deformity to her left ankle that is outwardly rotated. According to Dr. Abreu's notes, patient has been noncompliant with her treatment plan and has been not using her surgical boot. Patient denies any new injury or trauma to the ankle but is concerned she may have refractured it. Related Data Home Medications Medication Instructions Recorded Confirmed duloxetine 60 mg capsule,delayed 60 mg PO DAILY 06/02/21 05/25/22 release ergocalciferol (vitamin D2) 1,250 1,250 mcg PO DAILY 06/02/21 05/25/22 mcg (50,000 unit) capsule (Vitamin D2) hydroxyzine pamoate 25 mg capsule 25 mg PO DAILY 06/02/21 05/25/22 latanoprost 0.005 % eye drops 1 drp EACH EYE HS 06/02/21 05/25/22 levothyroxine 88 mcg tablet 88 mcg PO DAILY 06/02/21 05/25/22 omeprazole 20 mg capsule,delayed 20 mg PO DAILY 06/02/21 05/25/22 release quetiapine 400 mg tablet,extended 400 mg PO HS 06/02/21 05/25/22 release 24 hr quetiapine 50 mg tablet,extended 50 mg PO DAILY 06/02/21 05/25/22 release 24 hr Allergies Allergy/AdvReac Type Severity Reaction Status Date / Time No Known Allergies Allergy Verified 05/25/22 15:49 Review of Systems Review of Systems: CONSTITUTIONAL: Denies fever, chills, or sweats. EYES: Denies visual changes, redness, or discharge. ENT: Denies rhinorrhea, congestion, sore throat, or otalgia. CARDIOVASCULAR: Denies chest pain, palpitations, or edema. RESPIRATORY: Denies cough or dyspnea. GASTROINTESTINAL: Denies abdominal pain, nausea, vomiting, or diarrhea. GENITOURINARY: Denies dysuria or hematuria. SKIN: Denies rash or itching. MUSCULOSKELETAL: Reports left ankle pain NEUROLOGIC: Denies headache, numbness, dizziness, or weakness. PSYCHIATRIC: Denies anxiety or depression. [facility] Past Medical History Medical History Anxiety Arthritis Bipolar disorder Depression History suicide attempt at age 17. Fibromyalgia Gastroesophageal reflux disease Hepatitis C (2010) Status post interferon. Hypertension Hypothyroidism Seizure disorder Surgical History Surgical History History of ankle surgery (04/21/10) ORIF of left ankle fracture with subsequent hardware removal per Dr. Colon. History of arthroplasty of left knee With revision. History of tubal ligation (1975) Social History Social History Social History: The patient lives in [place]. She is disabled. Former smoker. History of alcohol abuse, she went through alcoholics anonymous and has not drank for quite some time though she could not further quantify. No drug use. Idalmis Sheppard, sister, is her emergency contact. Code status: Full code. Smoking status: Former smoker Alcohol intake: never Substance use: unknown Additional occupation/education comments: Pt states she is disabled. Gender identity (if verbalized by the patient): Female Exam Narrative: GENERAL: Well-appearing, well-nourished, no physical limitations, and in no acute distress. HEAD: Normocephalic, atraumatic. EYES: Conjunctivae normal, PERRLA and EOMI. CHEST: Clear to auscultation. No respiratory distress. No wheezes rales or rhonchi. No tende
--- NOTE | 2022-06-27 12:16 | PC.NURSE ---
Patient requesting pain medication. This RN informed patient that I was unable to give medication until provider sees her and puts an order in.
[2022-06-27] MEDS: ACETAMINOPHEN 500 MG TABLET 1000 MG PO (12:46)
[2022-06-27 13:00] VITALS: BP 141/60; PULSE 79; RESP 18; O2SAT 98
== END 2022-06-27 13:01 | disposition home or self-care (01) ==
PROVIDERS: Emergency Provider Nurse Practitioner Family
DX: M25.572 Pain in left ankle and joints of left foot (principal); S82.842S Displaced bimalleolar fracture of left lower leg, sequela; X58.XXXS Exposure to other specified factors, sequela; I10 Essential (primary) hypertension; E03.9 Hypothyroidism, unspecified; G40.909 Epilepsy, unspecified, not intractable, without status epilepticus; F41.9 Anxiety disorder, unspecified; F31.9 Bipolar disorder, unspecified; M79.7 Fibromyalgia; Z86.19 Personal history of other infectious and parasitic diseases; Z91.51 Personal history of suicidal behavior; Z87.891 Personal history of nicotine dependence; F10.21 Alcohol dependence, in remission; Z79.82 Long term (current) use of aspirin
CPT/HCPCS: 73610; 99283; A9270

== ENCOUNTER 2022-07-22 23:22 | Emergency (ER) | payer OTHER, SELFPAY ==
--- NOTE | ~2022-07-22 | CT_ITS ---
EXAMINATION: CT brain wo con DATE: 07/23/2022 01:22 INDICATION: Status post fall. Possible loss of consciousness TECHNIQUE: Computed tomography (CT) of the head was performed without intravenous contrast. The dose- length product was 605.33 mGy-cm. Automated exposure control and iterative reconstruction technique w ere employed. COMPARISON: 06/02/2021 FINDINGS: Mild generalized atrophy. There are scattered mild periventricular and subcortical white ma tter changes, most likely related to small vessel ischemic disease (microangiopathy). No ventriculome fatemeh or midline shift. Basilar cisterns are patent. No depressed skull fractures. Paranasal sinuses a nd mastoids are pneumatized. IMPRESSION: 1. No acute intracranial abnormality. Reviewed, dictated and finalized at location A.
--- NOTE | ~2022-07-22 | CT_ITS ---
EXAMINATION: CT cervical spine wo con DATE: 07/23/2022 01:22 INDICATION: Status post fall. Neck pain. TECHNIQUE: Computed tomography (CT) of the cervical spine was performed without intravenous contrast. The dose-length product was 116 mGy-cm. Automated exposure control and iterative reconstruction tech nique were employed. COMPARISON: No prior studies for comparison. FINDINGS: No fracture or traumatic malalignment. There is accentuated cervical lordosis. There is pro minent ventral osteophytes at all cervical spine levels. There is degenerative disc disease at all ce rvical levels. No paraspinal soft tissue abnormality. There is moderate multilevel uncinate and facet hypertrophy. Odontoid process within normal limits. No significant paraspinal soft tissue abnormalit y. Lung apices are normal. IMPRESSION: 1. No acute abnormality of the cervical spine. 2: Moderate cervical spondylosis. Reviewed, dictated and finalized at location A.
--- NOTE | ~2022-07-22 | XR_ITS ---
XR ankle LT min 3V 07/23/2022 00:11 Indication: Ankle deformity. Injury. Procedure: Comparison to multiple prior studies sequentially, with oldest reviewed study dated 2021. Comparison: Comparison to multiple prior studies sequentially, with oldest reviewed study dated 05/25. Findings: Stable alignment of displaced bimalleolar fracture. There is osteochondral defect along the lateral margin of the talus. Osteopenia. Possible small avuls ion fracture anterior margin of the distal tibia. Impression: 1: Stable alignment of displaced, angulated bimalleolar fracture. 2: Osteochondral defect superior lateral margin of the talar dome. Reviewed, dictated and finalized at location A. Impression: 1: Stable alignment of displaced, angulated bimalleolar fracture. 2: Osteochondral defect superior lateral margin of the talar dome.
[2022-07-22 23:14] VITALS: BP 145/61; PULSE 69; RESP 18; TEMP 36.9; O2SAT 98
[2022-07-23 00:12] VITALS: BP 143/74; PULSE 79; RESP 16; O2SAT 100
--- NOTE | 2022-07-23 00:35 | PC.NURSE ---
Pt called this RN to room. Pt states Do you have one of those places upstairs? Cause I'm having bad thoughts . When asked to elaborate, pt states she cannot keep her house clean due to ankle injury. Reports if she goes home she will hurt herself. Pt denies actual thoughts of suicide or plan. Moderate risk on Hamilton scale. EDP notified.
[2022-07-23] MEDS: oxyCODONE/ACETAMINOPHEN (*CRX) 5-325 MG TABLET 1 TABLET PO (00:59)
--- NOTE | 2022-07-23 01:02 | ED.LOWEXIN ---
HPI - Extremity Injury (Lower) General Chief Complaint: Extremity Injury, Lower Stated Complaint: Left Ankle pain Time Seen by Provider: 07/22/22 23:58 History of Present Illness HPI Narrative: This is a 71-year-old female with past medical history of left ankle fracture, hypothyroidism, depression who is brought to the emergency department for fall with left ankle pain. Patient states she was lying on her couch, when she rolled to grab a remote and fell. She believes she lost consciousness. She complains of left ankle pain, described as sharp, 6 out of 10, without radiation. She denies other pain. She denies chest pain, palpitations, or shortness of breath. Related Data Home Medications Medication Instructions Recorded Confirmed duloxetine 60 mg capsule,delayed 60 mg PO DAILY 06/02/21 07/12/22 release ergocalciferol (vitamin D2) 1,250 1,250 mcg PO DAILY 06/02/21 07/12/22 mcg (50,000 unit) capsule (Vitamin D2) hydroxyzine pamoate 25 mg capsule 25 mg PO DAILY 06/02/21 07/12/22 latanoprost 0.005 % eye drops 1 drp EACH EYE HS 06/02/21 07/12/22 levothyroxine 88 mcg tablet 88 mcg PO DAILY 06/02/21 07/12/22 omeprazole 20 mg capsule,delayed 20 mg PO DAILY 06/02/21 07/12/22 release quetiapine 400 mg tablet,extended 400 mg PO HS 06/02/21 07/12/22 release 24 hr quetiapine 50 mg tablet,extended 50 mg PO DAILY 06/02/21 07/12/22 release 24 hr Allergies Allergy/AdvReac Type Severity Reaction Status Date / Time No Known Allergies Allergy Verified 07/22/22 23:10 Review of Systems Review of Systems: CONSTITUTIONAL: Denies fever, chills, or sweats. EYES: Denies visual changes, redness, or discharge. ENT: Denies rhinorrhea, congestion, sore throat, or otalgia. CARDIOVASCULAR: Denies chest pain, palpitations, or edema. RESPIRATORY: Denies cough or dyspnea. GASTROINTESTINAL: Denies abdominal pain, nausea, vomiting, or diarrhea. GENITOURINARY: Denies dysuria or hematuria. SKIN: Denies rash or itching. MUSCULOSKELETAL: Left ankle pain denies back pain, joint pain, or myalgia. NEUROLOGIC: Denies headache, numbness, dizziness, or weakness. PSYCHIATRIC: Denies anxiety or depression. 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 Fibromyalgia Gastroesophageal reflux disease Hepatitis C (2010) Status post interferon. Hypertension Hypothyroidism Seizure disorder Surgical History Surgical History History of ankle surgery (04/21/10) ORIF of left ankle fracture with subsequent hardware removal per Dr. Colon. History of arthroplasty of left knee With revision. History of tubal ligation (1975) Social History Social History Social History: The patient lives in [place]. She is disabled. Former smoker. History of alcohol abuse, she went through alcoholics anonymous and has not drank for quite some time though she could not further quantify. No drug use. Idalmis Sheppard, sister, is her emergency contact. Code status: Full code. Smoking status: Former smoker Alcohol intake: never Substance use: unknown Additional occupation/education comments: Pt states she is disabled. Gender identity (if verbalized by the patient): Female Exam Narrative: GENERAL: Well-appearing, well-nourished, and in no acute distress. HEAD: Normocephalic, atraumatic. EYES: PERRLA and EOMI. ENT: Nares clear, no rhinorrhea or epistaxis. Mucous membranes moist. Oropharynx without tonsillar hypertrophy exudate or other lesions. Bilateral TMs pearly de la o nonbulging NECK: Supple. No adenopathy or masses. No carotid bruits or JVD CHEST: Clear to auscultation. No respiratory distress. No wheezes rales or rhonchi HEART: Regul
[2022-07-23 01:12] LABS: Basophils Absolute Auto 0.1 K/mm3 (0.0-0.1); Basophils Percent Auto 0.9 % (0.2-1.2); Eosinophils Absolute Auto 0.1 K/mm3 (0-0.3); Hematocrit 38.2 % (37.0-47.0); Hemoglobin 12.7 g/dL (12.0-15.0); Immature Granulocyte Absolute 0.02 K/mm3 (0.00-0.031); Immature Granulocyte Percent A 0.3 % (0-0.5); Lymphocytes Absolute Auto 2.21 K/mm3 (0.9-3.2); Mean Corpuscular HGB Conc 33.2 g/dl (32-36); Mean Corpuscular Hemoglobin 32.3 pg (26-34); Mean Corpuscular Volume 97.2 fl (80-100); Mean Platelet Volume 9.9 fl (7.4-10.4); Monocytes Absolute Auto 0.8 K/mm3 (0.1-0.6); Monocytes Percent Auto 10.1 % (2.6-8.5); Neutrophils Absolute Auto 4.5 K/mm3 (1.3-6.7); Neutrophils Percent Auto 58.7 % (45.5-73.1); Platelet Count Result 231 k/mm3 (150-375); Red Blood Count 3.93 M/mm3 (4.2-5.4); White Blood Count 7.6 K/mm3 (4.5-10.0)
[2022-07-23 01:20] LABS: Alanine Aminotransferase 23 U/L (6-35); Albumin Level 4.6 g/dL (3.5-5.1); Alkaline Phosphatase 92 U/L (38-126); Anion Gap 9 mmol/L (8-16); Aspartate Amino Transferase 44 U/L (14-36); Bilirubin,Total 0.8 mg/dL (0.2-1.3); Blood Urea Nitrogen 13 mg/dL (7-17); Calcium 9.1 mg/dL (8.4-10.2); Carbon Dioxide 24 mmol/L (22-30); Chloride 103 mmol/L (98-107); Estimated Glomerular Filt Rate > 60; Glucose 96 mg/dL (65-110); Sodium 136 mmol/L (137-145)
[2022-07-23 01:38] VITALS: BP 146/68; PULSE 76; RESP 18; O2SAT 100
[2022-07-23 02:48] VITALS: BP 137/61
--- NOTE | 2022-07-23 03:13 | PC.NURSE ---
called [facility] to request transport. ETA [id number]
--- NOTE | 2022-07-23 03:23 | PC.NURSE ---
called [facility] to request transport. Earliest ETA would be 4 to 4 1/2 hours.
--- NOTE | 2022-07-23 05:26 | PC.NURSE ---
[facility] here.
== END 2022-07-23 05:35 ==
PROVIDERS: Emergency Provider Preventive Medicine Aerospace Medicine
DX: S99.912A Unspecified injury of left ankle, initial encounter (principal); S82.842K Displaced bimalleolar fracture of left lower leg, subsequent encounter for closed fracture with nonunion; E87.6 Hypokalemia; E03.9 Hypothyroidism, unspecified; I10 Essential (primary) hypertension; G40.909 Epilepsy, unspecified, not intractable, without status epilepticus; M79.7 Fibromyalgia; K21.9 Gastro-esophageal reflux disease without esophagitis; F41.9 Anxiety disorder, unspecified; F31.9 Bipolar disorder, unspecified; Z87.891 Personal history of nicotine dependence; M47.812 Spondylosis without myelopathy or radiculopathy, cervical region; M85.872 Other specified disorders of bone density and structure, left ankle and foot; W08.XXXA Fall from other furniture, initial encounter; X58.XXXD Exposure to other specified factors, subsequent encounter
CPT/HCPCS: 36415; 70450; 72125; 73610; 80053; 85025; 99284; A9270

== ENCOUNTER 2022-09-18 14:04 | Outpatient (CLI) | payer OTHER, SELFPAY ==
--- NOTE | 2022-09-18 14:50 | ECG_ITS ---
Measurements Intervals [place] Rate: 57 P: -3 OR: 170 QRS: -30 QRSD: 105 T: 69 QT: 471 QTc: 462 Interpretive Statements SINUS BRADYCARDIA VOLTAGE CRITERIA FOR LVH NONSPECIFIC T-WAVE ABNORMALITY COMPARED TO ECG 06/02/2021 07:49:30 HEART RATE HAS DECREASED LEFT VENTRICULAR HYPERTROPHY NOW PRESENT Electronically Signed On 09-18-2022 15:11:45 [employer]AND[employer] MAK[employer] HELPER by Alexis Nesbitt M.D.
[2022-09-18 15:24] LABS: Hematocrit 41.5 % (37.0-47.0); Hemoglobin 13.2 g/dL (12.0-15.0)
== END 2022-09-18 14:05 | disposition home or self-care (01) ==
PROVIDERS: Anesthesiology; PCP Orthopaedic Surgery; Visit Provider Orthopaedic Surgery
DX: Z01.812 Encounter for preprocedural laboratory examination (principal); Z01.810 Encounter for preprocedural cardiovascular examination; S82.892K Other fracture of left lower leg, subsequent encounter for closed fracture with nonunion; R00.1 Bradycardia, unspecified; I51.7 Cardiomegaly; T14.90XA Injury, unspecified, initial encounter
CPT/HCPCS: 36415; 85014; 85018; 93005

== ENCOUNTER 2022-09-19 13:06 | Outpatient (CLI) | payer OTHER, SELFPAY ==
[2022-09-19 14:08] LABS: Alanine Aminotransferase 12 U/L (6-35); Albumin Level 4.5 g/dL (3.5-5.1); Alkaline Phosphatase 95 U/L (38-126); Anion Gap 8 mmol/L (8-16); Aspartate Amino Transferase 21 U/L (14-36); Bilirubin,Total 0.3 mg/dL (0.2-1.3); Blood Urea Nitrogen 9 mg/dL (7-17); Calcium 9.1 mg/dL (8.4-10.2); Carbon Dioxide 25 mmol/L (22-30); Chloride 101 mmol/L (98-107); Estimated Glomerular Filt Rate > 60; Glucose 96 mg/dL (65-110); Phosphorus 3.8 mg/dL (2.5-4.5); Potassium 3.5 mmol/L (3.4-5.0); Sodium 134 mmol/L (137-145)
[2022-09-19 14:25] LABS: Vitamin D 25 Hydroxy 33.7 ng/mL
[2022-09-19 15:33] LABS: Free T4 Free Thyroxine Reflex 0.94 ng/dL (0.78-2.19)
[2022-09-20 03:35] LABS: Total Triiodothyronine (T3) 1.26 NG/ML (0.97-1.69)
== END 2022-09-19 13:07 | disposition home or self-care (01) ==
PROVIDERS: PCP Orthopaedic Surgery; Visit Provider Internal Medicine
DX: M81.0 Age-related osteoporosis without current pathological fracture (principal); E55.9 Vitamin D deficiency, unspecified; E87.6 Hypokalemia; E03.9 Hypothyroidism, unspecified
CPT/HCPCS: 36415; 80053; 82306; 83735; 83970; 84100; 84439; 84443; 84480

== ENCOUNTER 2022-09-22 08:31 | Outpatient (CLI) | payer OTHER, SELFPAY ==
--- NOTE | ~2022-09-22 | DEXA_ITS ---
Bone Density Report Name: AFIA MONTESINOS I Age: 71 Sex: Female Ethnicity: White Date of : 1950 Indication: postmenopausal; screening for osteoporosis; height loss; prior fracture; Referring Provider: XIOMY TAYLOR Study: Bone densitometry was performed. Exam Date: September 22, 2022 Accession number: [id number] Bone Density: Region BMD T-score Z-score Classification AP Spine(L1-L4) 1.063 0.1 2.2 Normal Femoral Neck (Left) 0.793 -0.5 1.3 Normal Total Hip (Left) 0.814 -1.0 0.4 Normal Femoral Neck (Right) 0.611 -2.1 -0.4 Osteopenia Total Hip (Right) 0.715 -1.9 -0.4 Osteopenia Total Hip Mean 0.765 -1.5 0.0 Osteopenia World Health Organization criteria for BMD impression classify patients as: Normal (T-score at or above -1.0), Osteopenia (T-score between -1.0 and -2.5), or Osteoporosis (T-score at or below -2.5). 10-year Fracture Risk(1): Major Osteoporotic Fracture 19% Hip Fracture 3.9% Reported Risk Factors: [place] (), Neck BMD=0.611, BMI=27.7, previous fracture (1) FRAX(R) Version 3.08. Fracture probability calculated for an untreated patient. Fracture probability may be lower if the patient has received treatment. Clinical Information Provided by Patient: Has had a low trauma fracture Patient maximum height was 62 Menopause Age: 61 No regular weight bearing exercise Drinks caffeinated beverages Onset of menses at age 14 Number of children 1 Impression: The patient has low bone mass, based on the Right Femoral Neck T-score. The patient has an estimated ten-year risk of hip fracture of 3.9% and an estimated ten-year risk of major fracture of 19%, based on the WHO FRAX algorithm. The patient has risk factors, including: previous fracture. Discussion: BONE DENSITY IS LOW AT ONE OR MORE SKELETAL SITES. THE PATIENT'S BMD AND CLINICAL RISK FACTORS CONTRIBUTE TO THIS PATIENT'S INCREASED RISK OF FRACTURE. This patient's lowest T-score is low at one or more skeletal sites. It meets the World Health Organization's (WHO) criteria for ?low bone mass? (T-score between -1.0 and -2.5). The patient's 10-year risk of hip fracture as calculated by FRAX exceeds the threshold where pharmacological therapy is recommended by the National Osteoporosis Foundation (NOF). However, all treatment decisions require clinical judgment and consideration of individual patient factors, including patient preferences, comorbidities, previous drug use, risk factors not captured in the FRAX model (e.g., frailty, falls, vitamin D deficiency, increased bone turnover, interval significant decline in bone density) and possible under or overestimation of fracture risk by FRAX. The patient should follow a healthful lifestyle (good nutrition with adequate calcium and vitamin D, and appropriate weight
== END 2022-09-22 08:32 | disposition home or self-care (01) ==
LOC: ANHIMG 08:33
PROVIDERS: PCP Orthopaedic Surgery; Visit Provider Internal Medicine
DX: M81.0 Age-related osteoporosis without current pathological fracture (principal); M85.851 Other specified disorders of bone density and structure, right thigh
CPT/HCPCS: 77080

== ENCOUNTER 2022-09-25 00:52 | Day surgery (SDC) | payer OTHER, SELFPAY ==
[2022-09-12 15:00] VITALS: BMI 28.3
--- NOTE | 2022-09-12 15:16 | PC.NURSE ---
Report to the Outpatient Waiting Room, entrance under the green pavilion located off [facility], at time ___6:00AM____ on date __09/25/22 . Planned Procedure Time: __7:30AM . Time changes happen often and if your time is changed the preop area will call you the afternoon before. - You and your visitor will be asked to self-screen and do not enter if you have any COVID symptoms. - Only one visitor is requested with a max of two and NO children visitors are allowed at this time. - The patient visitor may be requested to leave or wait in car when not with patient due to distancing restrictions. - A mask is optional within the hospital. Patients may have clear liquids (water, carbonated beverages, clear teas, apple juice) until 3 hours prior to surgery with a maximum of 20 ounces. - No food from midnight until time of surgery Take the following medications with a SIP of water the morning of surgery: *WILL CALL PATIENT'S SISTER REGARDING MEDS Medications to discontinue per physician Date to take last dose Please no make-up, nail english, hairspray, perfume, deodorant, or body powder the day of surgery. No jewelry (including any body piercings) or valuables the day of surgery, leave them at home. Please take a shower or bath the night before, or the morning of, surgery with an antibacterial soap. Wear comfortable, loose fitting clothing. Children are encouraged to wear pajamas. - Jewelry must be removed prior to entering the operating room. Rings and piercings that are not removed may be cut off. - The hospital will not accept responsibility for valuables. - Please leave all valuables, including medications, at home the day of surgery. If you are going home after surgery, a licensed roll off driver must drive you home. - NO public transportation without another adult if you receive anesthesia. - We recommend that an adult stay with you for 24 hours following discharge. - We also recommend that you do not drive, make important decision, drink alcoholic beverages, or take any drugs that were not prescribed by your health care provider for at least 24 hours after your discharge time. Follow any additional instructions given to you from your surgeon. If you or anyone in your household have experienced Covid symptoms in the past week, please notify your surgeon or the nurse liaison at the phone number below for possible testing. Telephone instructions given to __PATIENT and asked if any additional questions and then verbalized understanding. Patient advised to call surgeon office or pre surgery nurse liaison [phone] if any additional questions.
--- NOTE | 2022-09-12 16:15 | PC.NURSE ---
09/12/22 PT ARRIVED TO INTERVIEW WITH LESLEY IN [employer] TECHNICIAN, WHO DID NOT KNOW PT. SHE WAS UNABLE TO COMPLETE ASSESSMENT/INTERVIEW BECAUSE OF HER LACK OF KNOWLEDGE OF HER MEDICATION, PMH, NAME OF HER PHYSICIAN. SHE WAS UNABLE TO SEE OR UNDERSTAND HER CONSENT. SHE LEFT WITH [facility] POWER OF OBSTETRIC ASSISTANT, STATING HER SISTER WILL BECOME HER POA. PHONE CALL TO SISTERJJ TO REPORT THAT WE WERE UNABLE TO INTERVIEW PATIENT AND NEED FOR FAMILY ASSISTANCE. JJ STATES SHE WILL COLLECT MEDICATION AND PMH INFO, ALONG WITH PRIMARY PHYSICIANS NAME, AND COME IN WITH PATIENT NEXT WEEK FOR INTERVIEW AND APPROPRIATE TESTING. SHE WILL ATTEMPT TO GET POA PRIOR TO INTERVIEW OR BY DAY OF SURGERY. RADHA SNOW RN
--- NOTE | 2022-09-18 14:04 | PC.NURSE ---
PRE-OP INSTRUCTIONS, PLEASE READ CAREFULLY Report to the Outpatient Waiting Room, entrance under the green pavilion located off [facility], at time _0600_ on date _09/25/22_. Planned Procedure Time: _0730_. Time changes happen often and if your time is changed the preop area will call you the afternoon before. - You and your visitor will be asked to self-screen and do not enter if you have any COVID symptoms. - Only one visitor is requested with a max of two and NO children visitors are allowed at this time. - The patient visitor may be requested to leave or wait in car when not with patient due to distancing restrictions. - A mask is optional within the hospital. Patients may have clear liquids (water, carbonated beverages, clear teas, apple juice) until 3 hours prior to surgery (0430 AM) with a maximum of 20 ounces. - No food from midnight until time of surgery Take the following medications with a SIP of water the morning of surgery: _TYLENOL IF NEEDED_ Medications to discontinue - _NONE_ Please no make-up, nail irish, hairspray, perfume, deodorant, or body powder the day of surgery. No jewelry (including any body piercings) or valuables the day of surgery, leave them at home. Please take a shower or bath the night before, or the morning of, surgery with an antibacterial soap. Wear comfortable, loose fitting clothing. - Jewelry must be removed prior to entering the operating room. Rings and piercings that are not removed may be cut off. - The hospital will not accept responsibility for valuables. - Please leave all valuables, including medications, at home the day of surgery. If you are going home after surgery, a licensed driver engineer must drive you home. - NO public transportation without another adult if you receive anesthesia. - We recommend that an adult stay with you for 24 hours following discharge. - We also recommend that you do not drive, make important decision, drink alcoholic beverages, or take any drugs that were not prescribed by your health care provider for at least 24 hours after your discharge time. Follow any additional instructions given to you from your surgeon. If you or anyone in your household have experienced Covid symptoms in the past week, please notify your surgeon or the nurse liaison at the phone number below for possible testing. Instructions given to _PATIENT & SISTER (JJ)_and asked if any additional questions and then verbalized understanding. Patient advised to call surgeon office or pre surgery nurse liaison [phone] if any additional questions.
[2022-09-18 14:28] VITALS: BP 130/70; PULSE 62; RESP 20; TEMP 36.8; O2SAT 100; BMI 28.0
--- NOTE | 2022-09-20 11:59 | PM.IMHP ---
H&P: HPI History of Present Illness Date/Time: 09/20/22 11:59 Chief Complaint: Left ankle pain and deformity Narrative: 71-year-old woman with previous left ankle fracture treated closed. Now with malunion and valgus alignment. Unable to bear weight and walk on extremity. Patient desires operative treatment. Review of Systems Constitutional: Constitutional: Denies fever(s) Eyes: Eyes: Denies blurry vision ENT: Reports Normal hearing present Cardiovascular: Cardiovascular: Denies chest pain and Denies dyspnea Respiratory: Respiratory: Denies dyspnea and Denies wheezing Gastrointestinal: Gastrointestinal: Denies abdominal pain Genitourinary: Genitourinary: Denies urinary urgency Musculoskeletal: Musculoskeletal: Reports as per HPI and Denies numbness Integumentary/Breasts: Skin/Breast: Denies changing lesions and Denies sores Neurologic: Reports Normal hearing present, Denies behavioral changes, Denies confusion, Denies numbness and Denies convulsions Psychiatric: Psychiatric: Denies behavioral changes, Denies confusion and Denies hallucinations Endocrine: Endocrine: Denies heat intolerance Hematologic/Lymphatic: Hematologic/Lymphatic: Denies easy bleeding Allergic/Immunologic: Allergic/Immunologic: Denies wheezing PMFSH Past Medical History Medical History Anxiety Arthritis Bipolar disorder 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 Fibromyalgia Gastroesophageal reflux disease Hepatitis C (2010) Status post interferon. Hypertension Hypothyroidism Seizure disorder Surgical History Surgical History History of ankle surgery (04/21/10) ORIF of left ankle fracture with subsequent hardware removal per Dr. Colon. History of arthroplasty of left knee With revision. History of tubal ligation (1975) Social History Social History Social History: The patient lives in [place]. She is disabled. Former smoker. History of alcohol abuse, she went through alcoholics anonymous and has not drank for quite some time though she could not further quantify. No drug use. Idalmis Sheppard, sister, is her emergency contact. Code status: Full code. Smoking packs per day: 1 Smoking cigarettes per day: 20.0 Years smoked: 53 Smoking pack-years: 53.00 Smoking status: Former smoker Tobacco type: cigarettes Second hand tobacco smoke exposure: No Smoking end date: 08/29/22 Alcohol intake: former Alcohol use details: STATES QUIT WHILE IN HER 40'S Substance use: never Substance use type: does not use Additional living arrangements comments: [facility] [phone] Additional occupation/education comments: Pt states she is disabled. Gender identity (if verbalized by the patient): Female Spiritual care concerns: No Meds Home Medications and Allergies Home Medications Medication Instructions Recorded Confirmed Type duloxetine 60 mg capsule,delayed 60 mg PO DAILY 06/02/21 09/18/22 History release acetaminophen 325 mg capsule 650 mg PO Q6H PRN pain #30 caps 06/06/21 09/18/22 Rx memantine 5 mg tablet 5 mg PO HS 09/12/22 09/18/22 History Allergies Allergy/AdvReac Type Severity Reaction Status Date / Time No Known Allergies Allergy Verified 09/18/22 14:22 Exam Const: General: No confusion Orientation/consciousness: No confusion HENMT: Head: normal to inspection, normocephalic and atraumatic Neck: Neck: supple and nontender Chest: Chest palpation & inspection: normal inspection of the chest Resp: Effort & Inspection: normal respiratory effort and no audible wheezes Cardio: Rate: regular rate : General: Yes deferred Skin: General skin exam: no rashes or lesions noted Neuro: General: No confusion Cranial nerves: Yes Normal h
--- NOTE | 2022-09-25 06:57 | SUR.PREOP ---
pt stated she had 2 cookies and some white soda when she woke up, right before her sister showed up this morning at 0400. judy was notified and dr gomez as well. the case has been cx.
--- NOTE | 2022-09-25 07:21 | WPDHPUPDATE1 ---
History and Physical Update Update Date/Time: 09/25/22 07:21 History and Physical has been reviewed, including an updated exam of the patient. There are NO changes in the patient's condition. Patient seen and examined. Alert and oriented. She states she ate food and soda this morning prior to coming to the hospital. Discussed with anesthesiology, high risk for aspiration, decision for case to be canceled. Reviewed with patient. Left ankle exam shows obvious deformity but skin intact. Good capillary refill in the toes. No signs of limb at risk. Will reschedule surgery at appropriate time and notify patient. Patient is discharged home under her own care with recommendations for fracture boot to be used when up for the left ankle.
== END 2022-09-25 07:15 | disposition home or self-care (01) ==
PROVIDERS: PCP Internal Medicine; Visit Provider Orthopaedic Surgery
DX: S82.892K Other fracture of left lower leg, subsequent encounter for closed fracture with nonunion (principal); S82.842S Displaced bimalleolar fracture of left lower leg, sequela; X58.XXXS Exposure to other specified factors, sequela
CPT/HCPCS: 99212; G0463

== ENCOUNTER 2022-11-10 11:47 | Observation (INO) | payer OTHER, SELFPAY ==
[2022-10-30 14:16] VITALS: BMI 27.8
--- NOTE | 2022-10-30 14:20 | PC.NURSE ---
Report to the Outpatient Waiting Room, entrance under the green pavilion located off [facility], at time __0800 on date __11/09/22 . Planned Procedure Time: ____1000____. Time changes happen often and if your time is changed the preop area will call you the afternoon before. - You and your visitor will be asked to self-screen and do not enter if you have any COVID symptoms. - Only one visitor is requested with a max of two and NO children visitors are allowed at this time. - The patient visitor may be requested to leave or wait in car when not with patient due to distancing restrictions. - A mask is optional within the hospital. Patients may have clear liquids (water, carbonated beverages, clear teas, apple juice) until 3 hours prior to surgery (0700 AM) with a maximum of 20 ounces. - No food from midnight until time of surgery - Infants may have breast milk until 4 hours before surgery, infant formula 6 hours prior to surgery. - Children will be allowed to drink immediately following surgery. If applicable, please bring a bottle or sippy cup to assist with drinking. Juice, water, soda, and popsicles are readily available. For infants on formula, please bring formula the day of surgery. Pacifiers are allowed. Take the following medications with a SIP of water the morning of surgery: _TYLENOL IF NEEDED_ Medications to discontinue per physician N/A Date to take last dose Please no make-up, nail yakut, hairspray, perfume, deodorant, or body powder the day of surgery. No jewelry (including any body piercings) or valuables the day of surgery, leave them at home. Please take a shower or bath the night before, or the morning of, surgery with an antibacterial soap. Wear comfortable, loose fitting clothing. Children are encouraged to wear pajamas. - Jewelry must be removed prior to entering the operating room. Rings and piercings that are not removed may be cut off. - The hospital will not accept responsibility for valuables. - Please leave all valuables, including medications, at home the day of surgery. If you are going home after surgery, a licensed milk tanker driver must drive you home. - NO public transportation without another adult if you receive anesthesia. - We recommend that an adult stay with you for 24 hours following discharge. - We also recommend that you do not drive, make important decision, drink alcoholic beverages, or take any drugs that were not prescribed by your health care provider for at least 24 hours after your discharge time. For Pediatric surgeries, we recommend two adults accompany the child home. Follow any additional instructions given to you from your surgeon. If you or anyone in your household have experienced Covid symptoms in the past week, please notify your surgeon or the nurse liaison at the phone number below for possible testing. Telephone instructions given to _PT'S SISTER & POP DOTSON_and asked if any additional questions and then verbalized understanding. Patient advised to call surgeon office or pre surgery nurse liaison [phone] if any additional questions.
--- NOTE | 2022-11-07 22:44 | PM.IMHP ---
H&P: HPI History of Present Illness Date/Time: 11/07/22 22:44 Chief Complaint: Left ankle pain and deformity Narrative: 71-year-old woman with previous left ankle fracture treated closed. Now with malunion and valgus alignment. Unable to bear weight and walk on extremity. Patient desires operative treatment. Review of Systems Constitutional: Constitutional: Denies fever(s) Eyes: Eyes: Denies blurry vision ENT: Reports Normal hearing present Cardiovascular: Cardiovascular: Denies chest pain and Denies dyspnea Respiratory: Respiratory: Denies dyspnea and Denies wheezing Gastrointestinal: Gastrointestinal: Denies abdominal pain Genitourinary: Genitourinary: Denies urinary urgency Musculoskeletal: Musculoskeletal: Reports as per HPI and Denies numbness Integumentary/Breasts: Skin/Breast: Denies changing lesions and Denies sores Neurologic: Reports Normal hearing present, Denies behavioral changes, Denies confusion, Denies numbness and Denies convulsions Psychiatric: Psychiatric: Denies behavioral changes, Denies confusion and Denies hallucinations Endocrine: Endocrine: Denies heat intolerance Hematologic/Lymphatic: Hematologic/Lymphatic: Denies easy bleeding Allergic/Immunologic: Allergic/Immunologic: Denies wheezing PMFSH Past Medical History Medical History Anxiety Arthritis Bipolar disorder 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 Fibromyalgia Gastroesophageal reflux disease Hepatitis C (2010) Status post interferon. Hypertension Hypothyroidism Seizure disorder Surgical History Surgical History History of ankle surgery (04/21/10) ORIF of left ankle fracture with subsequent hardware removal per Dr. Colon. History of arthroplasty of left knee With revision. History of tubal ligation (1975) Social History Social History Social History: The patient lives in [place]. She is disabled. Former smoker. History of alcohol abuse, she went through alcoholics anonymous and has not drank for quite some time though she could not further quantify. No drug use. Idalmis Sheppard, sister, is her emergency contact. Code status: Full code. Smoking packs per day: 0.75 Smoking cigarettes per day: 15.0 Years smoked: 53 Smoking pack-years: 39.75 Smoking status: Former smoker Tobacco type: cigarettes Second hand tobacco smoke exposure: No Smoking end date: 08/29/22 Alcohol intake: former Alcohol use details: HEAVIER DRINKER IN THE PAST - QUIT IN THE 40'S Substance use: never Substance use type: does not use Living arrangements: alone Additional living arrangements comments: [facility] [phone] Occupation/Education: other Additional occupation/education comments: Pt states she is disabled. Gender identity (if verbalized by the patient): Female Spiritual care concerns: No Meds Home Medications and Allergies Home Medications Medication Instructions Recorded Confirmed Type duloxetine 60 mg capsule,delayed 60 mg PO DAILY 06/02/21 10/30/22 History release acetaminophen 325 mg capsule 650 mg PO Q6H PRN pain #30 caps 06/06/21 10/30/22 Rx memantine 5 mg tablet 5 mg PO HS 09/12/22 10/30/22 History Allergies Allergy/AdvReac Type Severity Reaction Status Date / Time No Known Allergies Allergy Verified 10/30/22 14:15 Exam Const: General: No confusion Orientation/consciousness: No confusion HENMT: Head: normal to inspection, normocephalic and atraumatic Neck: Neck: supple and nontender Chest: Chest palpation & inspection: normal inspection of the chest Resp: Effort & Inspection: normal respiratory effort and no audible wheezes Cardio: Rate: regular rate : General: Yes deferred Skin: General skin exam: no rash
--- NOTE | 2022-11-08 09:28 | WPDANESEPPF ---
Anes - Initial Pre Proc Eval Procedure: Operation Date: 11/09/22 10:00 Proposed Procedures p Left Ankle and Subtalar Joint Arthrodesis - Harsh Allen MD Date/Time: 11/08/22 09:28 Surgeon: Harsh Allen MD Pre Op Diagnosis: left ankle malunion and arthritis Patient Data Age: 71 Gender: F Height: 1.49 m Weight: 61.5 kg Allergies Allergy/AdvReac Type Severity Reaction Status Date / Time No Known Allergies Allergy Verified 11/09/22 08:11 Home Medications Medication Instructions Recorded Confirmed Type duloxetine 60 mg capsule,delayed 60 mg PO DAILY 06/02/21 10/30/22 History release acetaminophen 325 mg capsule 650 mg PO Q6H PRN pain #30 caps 06/06/21 10/30/22 Rx memantine 5 mg tablet 5 mg PO HS 09/12/22 10/30/22 History Patient hx anesthesia problems: none Family hx anesthesia problems: none Results Review: All pre-operative results and documents have been reviewed as part of the pre-operative evaluation. 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 Fibromyalgia Gastroesophageal reflux disease Hepatitis C (2010) Status post interferon. Hypertension Hypothyroidism Seizure disorder Smoking history Surgical History Surgical History History of ankle surgery (04/21/10) ORIF of left ankle fracture with subsequent hardware removal per Dr. Colon. History of arthroplasty of left knee With revision. History of tubal ligation (1975) Social History Social History Social History: The patient lives in [place]. She is disabled. Former smoker. History of alcohol abuse, she went through alcoholics anonymous and has not drank for quite some time though she could not further quantify. No drug use. Idalmis Sheppard, sister, is her emergency contact. Code status: Full code. Smoking packs per day: 0.75 Smoking cigarettes per day: 15.0 Years smoked: 53 Smoking pack-years: 39.75 Smoking status: Former smoker Tobacco type: cigarettes Second hand tobacco smoke exposure: No Smoking end date: 08/29/22 Alcohol intake: former Alcohol use details: HEAVIER DRINKER IN THE PAST - QUIT IN THE 40'S Substance use: never Substance use type: does not use Living arrangements: alone Additional living arrangements comments: [facility] [phone] Occupation/Education: other Additional occupation/education comments: Pt states she is disabled. Gender identity (if verbalized by the patient): Female Spiritual care concerns: No Anes - Eval Final PreProcedure Day of Procedure 11/08/22 09:28 Patient weight: overweight Heart: regular rate and rhythm Lungs: clear to auscultation and normal air movement Airway: Mallampati scale class II Neurological: alert and oriented Last oral intake: >/= 8 hours ASA classification: III Emergent: no Anesthetic plan: proceed Anesthesia type and monitoring: general GIVS and LMA Results Review: All pre-operative results and documents have been reviewed as part of the pre-operative evaluation. Informed Consent: The patient's anesthetic plan and its attendant risks and benefits were discussed with the patient/family/POA. Questions were solicited and answers provided to the satisfaction of the patient/family/POA.
--- NOTE | 2022-11-08 09:30 | WPDANESPNB ---
Anes - Peripheral Nerve Block Date/Time: 11/08/22 09:30 I have discussed with the patient/family/POA the placement of a peripheral nerve block for post-operative pain management, including associated risks, benefits, complications, and side effects. Alternative methods of post-operative analgesia were detailed. Questions were solicited and answers provided to the satisfaction of the patient/family/POA. Time-Out: A pre-procedural Time-Out was completed immediately before starting the procedure and confirmed: Patient Identification, Site, Procedure, Patient Position and the Availability of Requisite Equipment. Clinical Indications: Acute post-operative pain management requested by the operative surgeon. Nerve Block Insertion Note Anes-nerve block: posterior fossa sciatic (20cc) and adductor canal (10cc) left Patient position: supine Skin prep: chlorhexidine Needle: 22 gauge, stimulating, insulated echogenic needle. Needle length: 80 mm Technique: ultrasound (in plane) Injectate: bupivacaine 0.25% with epi 5 mcg/ml (20cc) Observations: tolerated well Complications: none Procedure start time:: 1030 Procedure end time:: 1034
[2022-11-09] VITALS (21 sets, daily range): BP systolic 101–121; BP diastolic 50–80; PULSE 67–106; RESP 12–20; TEMP 36.4–36.8; O2SAT 93–100
[2022-11-09] MEDS: ACETAMINOPHEN 500 MG TABLET 1000 MG PO (08:07)
--- NOTE | 2022-11-09 08:17 | WPDHPUPDATE1 ---
History and Physical Update Update Date/Time: 11/09/22 08:17 History and Physical has been reviewed, including an updated exam of the patient. There are NO changes in the patient's condition. Risks, benefits, and alternatives have been discussed and questions answered. Patient agrees to proceed with procedure.
[2022-11-09] MEDS: LACTATED RINGERS 1,000 ML 30 ML IV CONT ×2 (08:37→13:46)
[2022-11-09] MEDS: KETOROLAC 15 MG/ML VIAL (*BKC) IV PUSH (08:37)
--- NOTE | 2022-11-09 10:03 | SUR.PREOP ---
has attempted twice to use toilet without success.
[2022-11-09] MEDS: ceFAZolin 2 GM/D5W 50 ML 2 GM/50 ML BAG IVPB (10:48)
--- NOTE | 2022-11-09 14:07 | P.OP_ITS ---
Procedure Note - Detailed Date of Procedure 11/09/22 Pre-op Diagnosis left ankle malunion and arthritis Post-op Diagnosis Same Procedure Performed Left ankle and subtalar arthrodesis Surgeon Harsh Allen MD Executive Account [employer] Anesthesia General Indications 71-year-old woman with previous left ankle bimalleolar fracture which on to and malunion subluxation of the ankle joint. Patient with underlying neuropathy. Foot position now unable to bear weight or use shoe wear. Presents for operative treatment. Description of Procedure Patient identified in the preoperative holding. Informed consent given. Operative extremity marked. Patient received intravenous antibiotics. Patient brought to the operating room where underwent general anesthetic by anesthesia team. Positioned supine on operating room table. Time-out performed confirming the patient, site of the surgery and the plan. Left leg prepped and draped usual sterile surgical fashion using ChloraPrep skin solution. Foot ankle exsanguinated and thigh tourniquet inflated to 225 mmHg. Longitudinal incision made along the fibula on the lateral aspect of the left ankle. Hemostasis controlled electrocautery. Fascia incised in line with skin incision. Distal fibula was removed ground up to use as bone graft later. This allowed exposure of the ankle and subtalar joints. Osteotomes were rongeur and curette used to prepare the bone joint surfaces. These were then provisionally aligned and checked with image intensification. Thorough irrigation with solution followed by application of bone graft and final positioning verified. Fixation achieved with an intramedullary nail placed retrograde from the plantar surface of the heel. Incision made with 15 blade knife and blunt dissection carried down to the calcaneus. Guide pin placed and verified with image intensification. Reaming then performed up to 12 mm diameter for an 11 mm nail. 180 mm nail by 11 mm diameter opened and assembled on the back table and inserted over the guide eric. Proximal locking done from medial to lateral through the tibia. 5.0 mm screws used. 5.0 mm screw then placed in the talus and internal compression then applied against screw. Good compression noted. 5.0 mm calcaneal locking screws posterior to anterior positioned and internal compression the subtalar joint performed. Final positioning and placement of the hardware verified with image intensification. Wounds irrigated. Final bone graft packed and any areas that would except graft to both ankle and subtalar joints. Fascia then closed with 0 Vicryl interrupted suture. Subcutaneous tissue repaired with 2-0 Vicryl and 3-0 Monocryl interrupted suture and skin repaired with terese. Sterile dressing applied. The patient was then woken from anesthesia, extubated and taken to the recovery room in stable condition. All sponge, needle, instrument counts were correct at the end of the case. Implants Penelope Alvarado arthrodesis nail 11 x 180 mm. Proximal locking screws 5.0 x 20 mm x 2. Talar screw 500 mm x 28 mm x 1. Calcaneal screw 44 mm x 5 mm x 1. 5 mm distal end cap. Estimated Blood Loss -10.0 Tourniquet Time 130 Urine Output -900.0 Drains No Packing No Pathology None sent Complications None Condition Stable Disposition PACU [facility] Billing Surgery - Charge Forward: Surgery Billing ([id number], [id number])
[2022-11-09] MEDS: fentaNYL CITRATE INJ (*CRX) 100 MCG/2 ML VIAL 25 MCG IV PUSH ×8 (14:20→15:46)
--- NOTE | 2022-11-09 17:10 | ADMGEN ---
This patient, Krys Varela, was admitted to Medical Room 243-01. Patient/family oriented to hospital policies and general routines including ID bracelet, bed and alarms, visiting hours, pain management, procedures, bathroom and other care routines, personal items, smoking policy, room service/diet, and visiting hours. Information on how to activate the Rapid Response Team has been discussed. Patient/Family are encouraged to report perceived risks to care and to ask questions if they do not understand what they are told or what they should do.
[2022-11-09] MEDS: SENNA/DOCUSATE SODIUM TABLET 2 TAB PO (18:11)
[2022-11-09] MEDS: HYDROcodone/acetaminophen (*CRX) 5-325 MG TABLET 1 TAB PO (19:34)
[2022-11-09] MEDS: MORPHINE SULFATE (*CRX) 2 MG/ML INJ IV PUSH (20:55)
[2022-11-09] MEDS: ASPIRIN 325 MG ENTERIC TABLET PO (20:58)
[2022-11-09] MEDS: FAMOTIDINE 20 MG TABLET PO (20:58)
[2022-11-09] MEDS: MEMANTINE 5 MG TABLET PO (20:58)
[2022-11-10] VITALS (8 sets, daily range): BP systolic 104–136; BP diastolic 40–64; PULSE 65–89; RESP 16–20; TEMP 36.4–37.1; O2SAT 98–100
--- NOTE | ~2022-11-10 | XR_ITS ---
EXAMINATION: XR surgery orthopedic DATE: 11/09/2022 13:19 INDICATION: Left ankle arthrodesis TECHNIQUE: 4 fluoroscopic images of the left ankle were obtained during procedure performed by Dr. Jens puckett. Radiologist was not present for the imaging or procedure. The amount of fluoroscopy time used during this procedure was 1.6 minutes. COMPARISON: None. FINDINGS: Left ankle arthrodesis fixed with a retrograde intramedullary eric extending from the plantar aspect o f the calcaneus across the subtalar and tibiotalar joints and 60 distal tibial diaphysis. The eric is fixed with a pair transverse interlocking screws at the distal diaphysis,, a transverse interlocking screw at the level of the talar dome and a posterior to anterior interlocking screw at the calcaneus. There is also been an osteotomy of the distal fibula. No fractures identified. 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 Expected small amount of postope rative intra-articular and soft tissue gas at the ankle and subtalar joints and surrounding soft tiss ues. IMPRESSION: 1. Expected appearance post left ankle arthrodesis with internal fixation. See procedure note for fur ther detail. Reviewed, dictated and finalized at location L. TENDER IMPRESSION: 1. Expected appearance post left ankle arthrodesis with internal fixation. See procedure note for further detail.
[2022-11-10] MEDS: HYDROcodone/acetaminophen (*CRX) 5-325 MG TABLET 1 TAB PO ×2 (03:08→06:36)
[2022-11-10] MEDS: diazePAM (*CRX) 5 MG TABLET PO ×2 (05:22→13:48)
[2022-11-10 06:11] LABS: Basophils Absolute Auto 0.1 K/mm3 (0.0-0.1); Basophils Percent Auto 0.6 % (0.2-1.2); Eosinophils Percent Auto 0.5 % (0-4.4); Hematocrit 37.5 % (37.0-47.0); Immature Granulocyte Absolute 0.02 K/mm3 (0.00-0.031); Immature Granulocyte Percent A 0.2 % (0-0.5); Lymphocytes Absolute Auto 1.25 K/mm3 (0.9-3.2); Lymphocytes Percent Auto 14.5 % (18.3-44.2); Mean Corpuscular Hemoglobin 31.4 pg (26-34); Mean Corpuscular Volume 98.2 fl (80-100); Mean Platelet Volume 10.1 fl (7.4-10.4); Monocytes Absolute Auto 1.4 K/mm3 (0.1-0.6); Monocytes Percent Auto 15.8 % (2.6-8.5); Neutrophils Absolute Auto 5.9 K/mm3 (1.3-6.7); Neutrophils Percent Auto 68.4 % (45.5-73.1); Platelet Count Result 214 k/mm3 (150-375); Red Blood Count 3.82 M/mm3 (4.2-5.4); White Blood Count 8.6 K/mm3 (4.5-10.0)
[2022-11-10 06:34] LABS: Anion Gap 6 mmol/L (8-16); Blood Urea Nitrogen 7 mg/dL (7-17); Calcium 8.5 mg/dL (8.4-10.2); Carbon Dioxide 30 mmol/L (22-30); Chloride 105 mmol/L (98-107); Estimated Glomerular Filt Rate > 60; Glucose 110 mg/dL (65-110); Potassium 3.6 mmol/L (3.4-5.0); Sodium 141 mmol/L (137-145)
[2022-11-10] MEDS: FAMOTIDINE 20 MG TABLET PO ×2 (09:12→20:43)
[2022-11-10] MEDS: SENNA/DOCUSATE SODIUM TABLET 2 TAB PO ×2 (09:12→17:06)
[2022-11-10] MEDS: polyethylene glycoL 3350 17 GM POWD.PACK PO (09:12)
[2022-11-10] MEDS: ASPIRIN 325 MG ENTERIC TABLET PO ×2 (09:12→20:45)
[2022-11-10] MEDS: HYDROcodone/acetaminophen (*CRX) 7.5-325 MG TABLET 1 TAB PO ×3 (09:31→18:41)
--- NOTE | 2022-11-10 10:00 | PM.PNORT ---
Progress Note: A&P Assessment and Plan (1) Closed bimalleolar fracture with nonunion: Code(s): S82.843K - Displaced bimalleolar fracture of unspecified lower leg, subsequent encounter for closed fracture with nonunion Status: Inactive Assessment and Plan: Postoperative day 1 left ankle nonunion repair. Still with pain left ankle. Will revise medication. Problems with muscle spasm. We will add Flexeril. She has not been cleared by therapy for discharge. Continue PT/ OT with nonweightbearing left leg. Operative findings and treatment reviewed with the patient. Questions answered. Plan discharge home when cleared by therapy, possibly tomorrow. Subjective Subjective Date/Time Seen: 11/10/22 10:00 Post Op day: 1 Principal diagnosis: Left ankle nonunion Interval history: patient awake and up in chair. Complains of left ankle pain as well as right knee and leg pain from bearing weight. Sensation has returned left foot. Nerve block has worn off. Exam Const: General: comfortable; No acute distress Resp: Effort & Inspection: normal respiratory effort and no audible wheezes Extrem: Right lower extremity: lower leg ( Negative Homans sign), ankle Details: normal ROM ( dorsiflexion and plantar flexion intact) and foot Details: vascular exam Details: dorsalis pedis pulse present and normal capillary refill, tendon exam Details: active flexion normal and active extension normal and motor-sensory exam Details: light-touch normal Location: in all toes; no edema Left lower extremity: foot Details: vascular exam Details: dorsalis pedis pulse present and normal capillary refill and motor-sensory exam light-touch normal in all toes; no edema Other: Cast in place left leg. Good fit proximal and distally. Good capillary refill all toes. Objective Data Vital Signs Vital Signs: Vital Signs - 24 hr 11/09/22 13:46 11/09/22 14:00 11/09/22 14:15 Temperature 97.5 F L Pulse Rate 101 H 98 101 H Respiratory Rate 12 14 16 Blood Pressure 113/50 L 114/62 110/65 Pulse Oximetry 98 96 94 Oxygen Delivery Simple Face Mask Simple Face Mask Room Air Oxygen Flow Rate 8 8 11/09/22 14:30 11/09/22 14:45 11/09/22 15:00 Temperature Pulse Rate 94 96 98 Respiratory Rate 12 12 12 Blood Pressure 113/52 L 110/54 L 120/51 L Pulse Oximetry 93 93 99 Oxygen Delivery Room Air Room Air Nasal Cannula Oxygen Flow Rate 2 11/09/22 15:15 11/09/22 15:30 11/09/22 15:45 Temperature Pulse Rate 97 88 95 Respiratory Rate 12 12 12 Blood Pressure 121/51 L 114/52 L 112/55 L Pulse Oximetry 99 98 98 Oxygen Delivery Nasal Cannula Nasal Cannula Nasal Cannula Oxygen Flow Rate 2 2 2 11/09/22 16:00 11/09/22 16:15 11/09/22 16:30 Temperature Pulse Rate 100 98 102 H Respiratory Rate 20 18 20 Blood Pressure 105/56 L 101/76 110/67 Pulse Oximetry 98 99 100 Oxygen Delivery Nasal Cannula Nasal Cannula Nasal Cannula Oxygen Flow Rate 2 2 2 11/09/22 16:45 11/09/22 16:50 11/09/22 17:10 Temperature Pulse Rate 102 H 106 H Respiratory Rate 14 20 20 Blood Pressure 105/55 L 110/62 Pulse Oximetry 98 100 100 Oxygen Delivery Nasal Cannula Room Air Room Air Oxygen Flow Rate 2 11/09/22 17:15 11/09/22 17:30 11/09/22 18:00 Temperature 97.5 F L 98.2 F 97.9 F Pulse Rate 91 86 88 Respiratory Rate 16 16 16 Blood Pressure 113/52 L 108/59 L 103/54 L Pulse Oximetry 98 99 99 Oxygen Delivery Oxygen Flow Rate 11/09/22 19:00 11/09/22 21:13 11/10/22 02:39 Temperature 97.5 F L 98.2 F 98.0 F Pulse Rate 84 73 67 Respiratory Rate 16 17 18 Blood Pressure 105/54 L 109/58 L 117/59 L Pulse Oximetry 98 100 100 Oxygen Delivery Oxygen Flow Rate 11/10/22 05:25 11/10/22 08:07 Temperature 97.9 F Pulse Rate 77 Respiratory Rate 18 Blood Pressure 136/64 Pulse Oximetry 100 Oxygen Delivery Room Air Oxygen Flow Rate Intake/Output Intake/Output: Intake & Output 11/07/22 11/08/22 11/09/22 11/10/22 23:59 2
--- NOTE | 2022-11-10 16:02 | WPDANESPN ---
Anes - Prog Note Post-Op Date/Time: 11/10/22 16:02 Cardiovascular status: normal Respiratory status: normal Airway patency: baseline Mental status: baseline Post-Op hydration status: normal Vital Signs: Last Vital Signs Temp 36.4 C 11/10/22 11:00 Pulse 65 11/10/22 11:00 Resp 16 11/10/22 11:00 BP 115/42 L 11/10/22 11:00 Pulse Ox 100 11/10/22 11:00 O2 Del Method Room Air 11/10/22 09:12 O2 Flow Rate 2 11/09/22 16:45 Pain Score (VAS): 02/21 I/O: Intake & Output 11/10/22 11/10/22 11/10/22 07:59 15:59 23:59 Intake Total 550 510 Output Total 1550 Balance -1000 510 Laboratory Tests 11/10/22 05:25 11/10/22 05:25 11/10/22 11/10/22 05:25 05:25 WBC 8.6 RBC 3.82 L Hgb 12.0 Hct 37.5 MCV 98.2 MCH 31.4 MCHC 32.0 RDW 13.0 Plt Count 214 MPV 10.1 Immature Gran % (Auto) 0.2 Neut % (Auto) 68.4 Lymph % (Auto) 14.5 L [place] % (Auto) 15.8 H Eos % (Auto) 0.5 Baso % (Auto) 0.6 Lymph # (Auto) 1.25 [place] # (Auto) 1.4 H Eos # (Auto) 0.0 Baso # (Auto) 0.1 Abs Immat Gran (auto) 0.02 Absolute Neuts (auto) 5.9 Absolute Nucleated RBC 0.0 Nucleated RBC % 0.0 Sodium 141 Potassium 3.6 Chloride 105 Carbon Dioxide 30 Anion Gap 6 L BUN 7 Creatinine 0.70 Estim Creat Clear Calc Not Reportable Estimated GFR > 60 Glucose 110 Calcium 8.5 Post-procedural complaints: none Patient Feedback: Patient satisfied with anesthetic care.
[2022-11-10] MEDS: CYCLOBENZAPRINE HCL 5 MG TABLET PO (18:41)
[2022-11-10] MEDS: DULoxetine HCL 60 MG CAPSULE.DR PO (20:43)
[2022-11-10] MEDS: MEMANTINE 5 MG TABLET PO (20:43)
[2022-11-11] VITALS: BP 116/58; PULSE 76; RESP 20; TEMP 36.4; O2SAT 100
[2022-11-11] MEDS: HYDROcodone/acetaminophen (*CRX) 7.5-325 MG TABLET 1 TAB PO ×5 (00:51→22:50)
[2022-11-11] MEDS: diazePAM (*CRX) 5 MG TABLET PO ×2 (00:51→20:25)
[2022-11-11] MEDS: CYCLOBENZAPRINE HCL 5 MG TABLET PO (05:44)
[2022-11-11] MEDS: MAGNESIUM HYDROXIDE SUSP 30 ML UDC PO (05:44)
[2022-11-11 06:00] VITALS: BP 109/54; PULSE 67; RESP 16; TEMP 36.9; O2SAT 99
[2022-11-11] MEDS: ASPIRIN 325 MG ENTERIC TABLET PO ×2 (08:32→20:25)
[2022-11-11] MEDS: FAMOTIDINE 20 MG TABLET PO ×2 (08:32→20:25)
[2022-11-11] MEDS: SENNA/DOCUSATE SODIUM TABLET 2 TAB PO ×2 (08:32→16:53)
[2022-11-11] MEDS: polyethylene glycoL 3350 17 GM POWD.PACK PO (08:32)
[2022-11-11 10:12] VITALS: O2SAT 99
[2022-11-11] MEDS: ONDANSETRON INJ 4 MG/2 ML VIAL IV PUSH (12:19)
--- NOTE | 2022-11-11 13:24 | PM.PNORT ---
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 SHE HAS BEEN CLEARED BY PT TO BE DISCHARGED. SHE WILL REQUIRE SNF PLACEMENT. THIS IS BEING ARRANGED AND WILL MOST LIKELY OCCUR TOMORROW OR LATER THIS EVENING. SHE WILL F/U WITH DR FARR IN 2 WEEKS. HISTORY, EXAM AND RADIOGRAPHS REVIEWED WITH THE PATIENT. REFERRING PHYSICIAN RECORDS AND IMAGES REVIEWED. CONDITION, NATURE, ETIOLOGY AND COURSE OF NATURAL HISTORY REVIEWED. CONSERVATIVE AND OPERATIVE TREATMENT OPTIONS REVIEWED WELL THE RISKS AND BENEFITS OF EACH. Subjective Subjective Date/Time Seen: 11/11/22 13:24 POD 3 LEFT ANKLE FUSION DOING WELL. SHE HAS NO CALF PAIN Exam Extrem: Other: VSS AFEBRILE DRESSING DRY, CAST IN GOOD REPAIR, MOVES TOES WELL. CAPILLARY REFILL BRISK, THIGH SOFT NON TENDER Objective Data Vital Signs Vital Signs: Vital Signs - 24 hr 11/10/22 15:00 11/10/22 19:00 11/10/22 21:04 Temperature 37.0 C 37.1 C 37.1 C Pulse Rate 89 82 82 Respiratory Rate 18 20 20 Blood Pressure 110/58 L 129/55 L 129/55 L Pulse Oximetry 98 98 98 Oxygen Delivery 11/11/22 00:00 11/11/22 06:00 11/11/22 08:35 Temperature 36.4 C 36.9 C Pulse Rate 76 67 Respiratory Rate 20 16 Blood Pressure 116/58 L 109/54 L Pulse Oximetry 100 99 Oxygen Delivery Room Air 11/11/22 10:12 Temperature Pulse Rate Respiratory Rate Blood Pressure Pulse Oximetry 99 Oxygen Delivery Room Air Intake/Output Intake/Output: Intake & Output 11/08/22 11/09/22 11/10/22 11/11/22 23:59 23:59 23:59 23:59 Intake Total 840 1750 1000 Output Total 470 3250 900 Balance 370 -1500 100 Meds/Results Medications: Active Medications Generic Name Dose Route Start Last Admin Trade Name Freq PRN Reason Stop Dose Admin Acetaminophen 500 mg 11/09/22 16:55 Acetaminophen 500 Mg Tablet PO Q6H PRN Mild Pain (1-3) or Fever Hydrocodone Bitart/Acetaminophen 1 tab 11/10/22 09:19 11/11/22 12:19 Hydrocodone/Acetaminophen (*Crx) 7.5-325 Mg Tablet PO 1 tab Q4H PRN Administration Pain Rated 4-6 Aspirin 325 mg 11/09/22 21:00 11/11/22 08:32 Aspirin 325 Mg Enteric Tablet PO 325 mg Q12HR ORIN Administration Bisacodyl 10 mg 11/09/22 16:55 Bisacodyl 10 Mg Suppository RECTAL DAILY PRN Constipation Cyclobenzaprine HCl 5 mg 11/10/22 09:14 11/11/22 05:44 Cyclobenzaprine Hcl 5 Mg Tablet PO 5 mg Q8H PRN Administration Muscle Spasm Diazepam 5 mg 11/10/22 09:17 11/11/22 00:51 Diazepam (*Crx) 5 Mg Tablet PO 5 mg Q8H PRN Administration Agitation Duloxetine HCl 60 mg 11/10/22 21:00 11/10/22 20:43 Duloxetine Hcl 60 Mg Capsule.Dr PO 60 mg HS ORIN Administration Famotidine 20 mg 11/09/22 21:00 11/11/22 08:32 Famotidine 20 Mg Tablet PO 20 mg Q12HR ORIN Administration Magnesium Hydroxide 30 ml 11/09/22 16:55 11/11/22 05:44 Magnesium Hydroxide Susp 30 Ml Udc PO 30 ml BID PRN Administration Constipation Memantine 5 mg 11/09/22 21:00 11/10/22 20:43 Memantine 5 Mg Tablet PO 5 mg HS ORIN Administration Morphine Sulfate 2 mg 11/09/22 16:55 11/09/22 20:55 Morphine Sulfate (*Crx) 2 Mg/Ml Inj IV PUSH 2 mg Q3H PRN Administration Pain Rated 7-10 Naloxone HCl 0.1 mg 11/09/22 16:55 Naloxone Hcl 0.4 Mg/Ml Vial IV PUSH Q2M PRN Opiate Reversal Ondansetron HCl 4 mg 11/09/22 16:55 11/11/22 12:19 Ondansetron Inj 4 Mg/2 Ml Vial IV PUSH 4 mg Q4H PRN Administration Nausea And Vomiting Polyethylene Glycol 17 gm 11/10/22 09:00 11/11/22 08:32 Polyethylene Glycol 3350 17 Gm Powd.Pack PO 17 gm QAM ORIN Administration Senna/Docusate Sodium 2 tab 11/09/22 17:00 11/11/22 08:32 Senna/Docusate Sodium Table
--- NOTE | 2022-11-11 13:28 | P.DS_ITS ---
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 THE PATIENT HAD GOOD PROGRESS WITH PT/OT. LABS AND VITALS REMAINED STABLE AND PAIN WELL CONTROLLED. THE PATIENT HAS BEEN CLEARED TO BE DISCHARGED TO HOME. FOLLOW UP APPOINTMENT SCHEDULED. DISCHARGE INSTRUCTIONS DISCUSSED AT LENGTH WITH THE PATIENT. MEDICATIONS REVIEWED. Status at Discharge Functional status at discharge: uses cane/walker Time Spent with Patient Time attestation: Total time spent providing and/or coordinating discharge services: DS: Data Procedures/Treatments: LEFT ANKLE FUSION Discharge Plan Discharge Attending physician on discharge: Stephanie Farr Discharging Clinician: Sushant Huerta Anticipated Discharge Date/Time: 11/12/22 12:32 Patient Disposition: Home, Self-Care Activity: may shower, no driving and follow weight bearing status Diet: as tolerated Wound Care Instructions: keep dressing dry Discharge Instructions: Remember to use your incentive spirometer during your recovery to promote breathing. STEPHANIE FARR M.D. [facility] [address] [facility] [address] [place] [phone] POST OPERATIVE DISCHARGE INSTRUCTIONS FOOT/ANKLE SURGERY * Elevate the involved extremity on pillows. * For the first 48 hours, make sure that the foot is above the level of your heart. * Carefully observe the exposed toes for evidence of swelling or discoloration. * If the dressing is uncomfortable or tight, call the Dr?s office. * Keep the dressing clean and dry. Remove dressing only as directed by doctor. * If the pain medication does not provide adequate relief, please call Dr?s office. * Take other medication as prescribed. * Please call Dr?s office to confirm follow-up appointment for 1 week. * If you have any questions, please call the Dr?s office. * Diet as tolerated. * Activity:___X____Restrictions as follows: no weight operative leg; crutches or walker for ambulation * Do not drive for 24 hours, unless otherwise instructed. * Additional instructions: Care Coordination: Patient to have [facility] for PT and OT eval and treat, and RN services. They can be reached at [phone] if you have any questions; they will call you to schedule their first visit. RN Please fax discharge instructions to [phone]. Patient Instructions: Antibiotic Form Stand Alone Forms: General Discharge Information, General Discharge Instructions Follow-up/Referrals: Stephanie Farr MD [Physician] - 11/15/22 10:15 am Discharge Medications: New hydrocodone-acetaminophen 5-325 mg tablet 1 ta
--- NOTE | 2022-11-11 13:28 | PM.DS ---
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 THE PATIENT HAD GOOD PROGRESS WITH PT/OT. LABS AND VITALS REMAINED STABLE AND PAIN WELL CONTROLLED. THE PATIENT HAS BEEN CLEARED TO BE DISCHARGED TO HOME. FOLLOW UP APPOINTMENT SCHEDULED. DISCHARGE INSTRUCTIONS DISCUSSED AT LENGTH WITH THE PATIENT. MEDICATIONS REVIEWED. Status at Discharge Functional status at discharge: uses cane/walker Time Spent with Patient Time attestation: Total time spent providing and/or coordinating discharge services: DS: Data Procedures/Treatments: LEFT ANKLE FUSION Discharge Plan Discharge Attending physician on discharge: Stephanie Farr Discharging Clinician: Sushant Huerta Anticipated Discharge Date/Time: 11/12/22 12:32 Patient Disposition: Home, Self-Care Activity: may shower, no driving and follow weight bearing status Diet: as tolerated Wound Care Instructions: keep dressing dry Discharge Instructions: Remember to use your incentive spirometer during your recovery to promote breathing. STEPHANIE FARR M.D. [facility] [address] [facility] [address] [place] [phone] POST OPERATIVE DISCHARGE INSTRUCTIONS FOOT/ANKLE SURGERY Elevate the involved extremity on pillows. For the first 48 hours, make sure that the foot is above the level of your heart. Carefully observe the exposed toes for evidence of swelling or discoloration. If the dressing is uncomfortable or tight, call the Dr?s office. Keep the dressing clean and dry. Remove dressing only as directed by doctor. If the pain medication does not provide adequate relief, please call Dr?s office. Take other medication as prescribed. Please call Dr?s office to confirm follow-up appointment for 1 week. If you have any questions, please call the Dr?s office. Diet as tolerated. Activity:___X____Restrictions as follows: no weight operative leg; crutches or walker for ambulation Do not drive for 24 hours, unless otherwise instructed. Additional instructions: Care Coordination: Patient to have [facility] for PT and OT eval and treat, and RN services. They can be reached at [phone] if you have any questions; they will call you to schedule their first visit. RN Please fax discharge instructions to [phone]. Patient Instructions: Antibiotic Form Stand Alone Forms: General Discharge Information, General Discharge Instructions Follow-up/Referrals: Stephanie Farr MD [Physician] - 11/15/22 10:15 am Discharge Medications: New hydrocodone-acetaminophen 5-325 mg tablet 1 tablet PO Q12H PRN (Reason: pain) Qty: 30 0RF Continued memantine 5 mg tablet 5 mg PO HS duloxetine 60 mg Capsule,Delayed Release(Dr/Ec) 60 mg PO DAILY Label Comments: HS acetaminophen 325 mg capsule 650 mg PO Q6H PRN (Reason: pain) Qty: 30 0RF Date of admission: 11/10/22 11:47 Primary Care Provider: Gian Hilario Admitting Provider: Stephanie Farr Attending physician on admission: Stephanie Farr Condition: Stable
[2022-11-11 14:00] VITALS: BP 110/58; PULSE 66; RESP 16; TEMP 37; O2SAT 99
[2022-11-11] MEDS: DULoxetine HCL 60 MG CAPSULE.DR PO (20:25)
[2022-11-11] MEDS: MEMANTINE 5 MG TABLET PO (20:25)
[2022-11-11 20:56] VITALS: BP 107/39; PULSE 68; RESP 16; TEMP 36.6; O2SAT 100
[2022-11-12] MEDS: HYDROcodone/acetaminophen (*CRX) 7.5-325 MG TABLET 1 TAB PO ×4 (02:42→20:30)
--- NOTE | 2022-11-12 03:19 | PC.NURSE ---
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 pt called to turn on light, 5-10 min later calls to turn light off. On and off the BSC many times . Pt instructed frequently to call when done on commode and not get up per self. Pt starts to get off BSC each time per self while staff in room w pt. Unsteady gait . Left leg w cast--right leg position abnormal when standing. Pt states has issues with right leg for some time . Bed alarm on at all times. Pt requests pain medication before next dose due. Valium given without results observed. Plan for d/c to sister's home.
[2022-11-12] MEDS: diazePAM (*CRX) 5 MG TABLET PO ×2 (05:50→20:30)
[2022-11-12 06:00] VITALS: BP 100/48; PULSE 68; RESP 16; TEMP 36.6; O2SAT 96
--- NOTE | 2022-11-12 06:32 | PC.NURSE ---
pt on and off BSC unable to void again after the 300ml earlier in this shift. Bladder scan showed 680ml. straight cath- 800ml.
[2022-11-12] MEDS: polyethylene glycoL 3350 17 GM POWD.PACK PO (09:09)
[2022-11-12] MEDS: ASPIRIN 325 MG ENTERIC TABLET PO ×2 (09:09→20:29)
--- NOTE | 2022-11-12 09:09 | PM.PNORT ---
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 Patient stable. Discharge home with home health. Follow-up in office. Subjective Subjective Date/Time Seen: 11/12/22 09:09 Post Op day: 3 Principal diagnosis: Left ankle malunion Interval history: no new complaints Exam Const: General: comfortable; No acute distress Resp: Effort & Inspection: normal respiratory effort and no audible wheezes Extrem: Right lower extremity: lower leg ( Negative Homans sign), ankle Details: normal ROM ( dorsiflexion and plantar flexion intact) and foot Details: vascular exam Details: dorsalis pedis pulse present and normal capillary refill, tendon exam Details: active flexion normal and active extension normal and motor-sensory exam Details: light-touch normal Location: in all toes; no edema Left lower extremity: foot Details: vascular exam Details: dorsalis pedis pulse present and normal capillary refill and motor-sensory exam light-touch normal in all toes; no edema Other: Cast in place left leg. Good fit proximal and distally. Good capillary refill all toes. Objective Data Vital Signs Vital Signs: Vital Signs - 24 hr 11/11/22 10:12 11/11/22 14:00 11/11/22 20:56 Temperature 98.6 F 98 F Pulse Rate 66 68 Respiratory Rate 16 16 Blood Pressure 110/58 L 107/39 L Pulse Oximetry 99 99 100 Oxygen Delivery Room Air 11/12/22 06:00 Temperature 97.8 F Pulse Rate 68 Respiratory Rate 16 Blood Pressure 100/48 L Pulse Oximetry 96 Oxygen Delivery Intake/Output Intake/Output: Intake & Output 11/09/22 11/10/22 11/11/22 11/12/22 23:59 23:59 23:59 23:59 Intake Total 840 1750 2030 350 Output Total 470 3250 1850 1400 Balance 370 -1500 180 -1050 Meds/Results Medications: Active Medications Generic Name Dose Route Start Last Admin Trade Name Freq PRN Reason Stop Dose Admin Acetaminophen 500 mg 11/09/22 16:55 Acetaminophen 500 Mg Tablet PO Q6H PRN Mild Pain (1-3) or Fever Hydrocodone Bitart/Acetaminophen 1 tab 11/10/22 09:19 11/12/22 02:42 Hydrocodone/Acetaminophen (*Crx) 7.5-325 Mg Tablet PO 1 tab Q4H PRN Administration Pain Rated 4-6 Aspirin 325 mg 11/09/22 21:00 11/11/22 20:25 Aspirin 325 Mg Enteric Tablet PO 325 mg Q12HR ORIN Administration Bisacodyl 10 mg 11/09/22 16:55 Bisacodyl 10 Mg Suppository RECTAL DAILY PRN Constipation Cyclobenzaprine HCl 5 mg 11/10/22 09:14 11/11/22 05:44 Cyclobenzaprine Hcl 5 Mg Tablet PO 5 mg Q8H PRN Administration Muscle Spasm Diazepam 5 mg 11/10/22 09:17 11/12/22 05:50 Diazepam (*Crx) 5 Mg Tablet PO 5 mg Q8H PRN Administration Agitation Duloxetine HCl 60 mg 11/10/22 21:00 11/11/22 20:25 Duloxetine Hcl 60 Mg Capsule.Dr PO 60 mg HS ORIN Administration Famotidine 20 mg 11/09/22 21:00 11/11/22 20:25 Famotidine 20 Mg Tablet PO 20 mg Q12HR ORIN Administration Magnesium Hydroxide 30 ml 11/09/22 16:55 11/11/22 05:44 Magnesium Hydroxide Susp 30 Ml Udc PO 30 ml BID PRN Administration Constipation Memantine 5 mg 11/09/22 21:00 11/11/22 20:25 Memantine 5 Mg Tablet PO 5 mg HS ORIN Administration Morphine Sulfate 2 mg 11/09/22 16:55 11/09/22 20:55 Morphine Sulfate (*Crx) 2 Mg/Ml Inj IV PUSH 2 mg Q3H PRN Administration Pain Rated 7-10 Naloxone HCl 0.1 mg 11/09/22 16:55 Naloxone Hcl 0.4 Mg/Ml Vial IV PUSH Q2M PRN Opiate Reversal Ondansetron HCl 4 mg 11/09/22 16:55 11/11/22 12:19 Ondansetron Inj 4 Mg/2 Ml Vial IV PUSH 4 mg Q4H PRN Administration Nausea And Vomiting Polyethylene Glycol 17 gm 11/10/22 09:00 11/11/22 08:32 Polyethylene Glycol 3350 17 Gm Powd.Pack PO 17 gm Q
[2022-11-12] MEDS: FAMOTIDINE 20 MG TABLET PO ×2 (09:10→20:29)
[2022-11-12] MEDS: SENNA/DOCUSATE SODIUM TABLET 2 TAB PO ×2 (09:10→16:12)
[2022-11-12 13:45] VITALS: BP 110/48; PULSE 72; RESP 16; TEMP 36.6; O2SAT 98
--- NOTE | 2022-11-12 16:26 | PC.NURSE ---
pt. is retaining urine, she was straight cathed 3 x in the last 24 hours. This nurse spoke with Dr. Huerta at 15:45 and was instructed to consult urology and insert a pollard catheter.
--- NOTE | 2022-11-12 16:51 | PCPTNOTE ---
Addendum entered by Kayley Medrano, RUBBLE PLACER 11/12/22 16:54: RN notified. Original Note: Attempted to see patient for Physical Therapy this afternoon. Patient stated that she was moving around a lot today and that they put a catheter in. Patient stated that she was too tired to participate in therapy this afternoon.
[2022-11-12] MEDS: ONDANSETRON INJ 4 MG/2 ML VIAL IV PUSH (17:41)
[2022-11-12] MEDS: MAGNESIUM HYDROXIDE SUSP 30 ML UDC PO (20:28)
[2022-11-12] MEDS: MEMANTINE 5 MG TABLET PO (20:29)
[2022-11-12] MEDS: DULoxetine HCL 60 MG CAPSULE.DR PO (21:00)
[2022-11-12 21:20] VITALS: BP 115/58; PULSE 68; RESP 16; TEMP 36.7; O2SAT 96
[2022-11-13 06:00] VITALS: BP 110/46; PULSE 69; RESP 16; TEMP 36.7; O2SAT 95
[2022-11-13] MEDS: HYDROcodone/acetaminophen (*CRX) 7.5-325 MG TABLET 1 TAB PO ×3 (06:29→17:04)
[2022-11-13] MEDS: diazePAM (*CRX) 5 MG TABLET PO (06:29)
[2022-11-13] MEDS: FAMOTIDINE 20 MG TABLET PO (08:52)
[2022-11-13] MEDS: ASPIRIN 325 MG ENTERIC TABLET PO (08:53)
[2022-11-13] MEDS: SENNA/DOCUSATE SODIUM TABLET 2 TAB PO ×2 (08:58→17:04)
--- NOTE | 2022-11-13 13:26 | PM.PNORT ---
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 PT/OT. NWB LLE. Pain control. Ice. Elevate. Pollard catheter in place. Failed void trial. Awaiting urology recommendations. Possible dc home with pollard if approved and follow up outpatient. Dispo: Discharge Home with Home Health Subjective Subjective Date/Time Seen: 11/13/22 13:26 Post Op day: 4 Principal diagnosis: Left ankle malunion Interval history: No new concerns. Anxious about discharge plans. Pollard still in place. Awaiting urology consult/recommendations. Review of Systems Constitutional: Constitutional: Denies fever(s) Eyes: Eyes: Denies blurry vision ENT: Reports Normal hearing present Cardiovascular: Cardiovascular: Denies chest pain and Denies dyspnea Respiratory: Respiratory: Denies dyspnea and Denies wheezing Gastrointestinal: Gastrointestinal: Denies abdominal pain Genitourinary: Genitourinary: Denies urinary urgency Musculoskeletal: Musculoskeletal: Reports as per HPI and Denies numbness Integumentary/Breasts: Skin/Breast: Denies changing lesions and Denies sores Neurologic: Reports Normal hearing present, Denies behavioral changes, Denies confusion, Denies numbness and Denies convulsions Psychiatric: Psychiatric: Denies behavioral changes, Denies confusion and Denies hallucinations Endocrine: Endocrine: Denies heat intolerance Hematologic/Lymphatic: Hematologic/Lymphatic: Denies easy bleeding Allergic/Immunologic: Allergic/Immunologic: Denies wheezing Exam Const: General: comfortable; No acute distress Resp: Effort & Inspection: normal respiratory effort and no audible wheezes Extrem: Right lower extremity: lower leg ( Negative Homans sign), ankle Details: normal ROM ( dorsiflexion and plantar flexion intact) and foot Details: vascular exam Details: dorsalis pedis pulse present and normal capillary refill, tendon exam Details: active flexion normal and active extension normal and motor-sensory exam Details: light-touch normal Location: in all toes; no edema Left lower extremity: foot Details: vascular exam Details: dorsalis pedis pulse present and normal capillary refill and motor-sensory exam light-touch normal in all toes; no edema Other: Cast in place left leg. Good fit proximal and distally. Good capillary refill all toes. Objective Data Vital Signs Vital Signs: Vital Signs - 24 hr 11/12/22 13:45 11/12/22 21:20 11/13/22 06:00 Temperature 36.6 C 36.7 C 36.7 C Pulse Rate 72 68 69 Respiratory Rate 16 16 16 Blood Pressure 110/48 L 115/58 L 110/46 L Pulse Oximetry 98 96 95 Intake/Output Intake/Output: Intake & Output 11/10/22 11/11/22 11/12/22 11/13/22 23:59 23:59 23:59 23:59 Intake Total 1750 2030 2290 710 Output Total 3250 1850 2700 1500 Balance -1500 180 -410 -790 Meds/Results Medications: Active Medications Generic Name Dose Route Start Last Admin Trade Name Freq PRN Reason Stop Dose Admin Acetaminophen 500 mg 11/09/22 16:55 Acetaminophen 500 Mg Tablet PO Q6H PRN Mild Pain (1-3) or Fever Hydrocodone Bitart/Acetaminophen 1 tab 11/10/22 09:19 11/13/22 12:47 Hydrocodone/Acetaminophen (*Crx) 7.5-325 Mg Tablet PO 1 tab Q4H PRN Administration Pain Rated 4-6 Aspirin 325 mg 11/09/22 21:00 11/13/22 08:53 Aspirin 325 Mg Enteric Tablet PO 325 mg Q12HR ORIN Administration Bisacodyl 10 mg 11/09/22 16:55 Bisacodyl 10 Mg Suppository RECTAL DAILY PRN Constipation Cyclobenzaprine HCl 5 mg 11/10/22 09:14 11/11/22 05:44 Cyclobenzaprine Hcl 5 Mg Tablet PO 5 mg Q8H PRN Administration Muscle Spasm Diazepam 5 mg 11/10/22 09:17 11/13/22 06:29 Diazepam (*Crx) 5 Mg Tablet
[2022-11-13 14:33] VITALS: BP 96/56; PULSE 66; RESP 18; TEMP 36.2; O2SAT 97
== END 2022-11-13 17:45 | disposition home health service (06) ==
LOC: ANHSURGERY 11-13 10:48 → ANH2MED 11-13 10:48
PROVIDERS: Admitting Provider Orthopaedic Surgery; PCP Internal Medicine; Visit Provider Orthopaedic Surgery
PROC: (CPT 28715; principal; 2022-11-09 10:00)
DX: S82.842K Displaced bimalleolar fracture of left lower leg, subsequent encounter for closed fracture with nonunion (principal); F41.9 Anxiety disorder, unspecified; M19.90 Unspecified osteoarthritis, unspecified site; F32.A Depression, unspecified; M79.7 Fibromyalgia; K21.9 Gastro-esophageal reflux disease without esophagitis; Z86.19 Personal history of other infectious and parasitic diseases; I10 Essential (primary) hypertension; E03.9 Hypothyroidism, unspecified; G40.909 Epilepsy, unspecified, not intractable, without status epilepticus; G30.9 Alzheimer's disease, unspecified; F10.21 Alcohol dependence, in remission; Z87.891 Personal history of nicotine dependence; Z79.1 Long term (current) use of non-steroidal anti-inflammatories (NSAID); Z79.899 Other long term (current) drug therapy
CPT/HCPCS: 28725; 64447; 36415; 80048; 85025; 96374; 97110; 97116; 97161; 97165; 97530; 97535; 99199; A9270; C1713; G0378; G0379; J0690; J1885; J2270; J2370; J2405; J2704; J3010; J7120

== ENCOUNTER 2022-12-15 07:00 | Outpatient (NON) | payer OTHER, SELFPAY ==
[2022-12-18 17:12] LABS: IFOB Positive Control Positive; Immunochemical Fecal Occult Bl Positive (N)
== END 2022-12-18 16:11 | disposition home or self-care (01) ==
PROVIDERS: PCP Internal Medicine; Visit Provider Internal Medicine
DX: Z12.11 Encounter for screening for malignant neoplasm of colon (principal); M81.0 Age-related osteoporosis without current pathological fracture; E55.9 Vitamin D deficiency, unspecified; E87.6 Hypokalemia; E03.9 Hypothyroidism, unspecified
CPT/HCPCS: 82274

== ENCOUNTER 2023-01-15 09:38 | Outpatient (CLI) | payer OTHER, SELFPAY ==
--- NOTE | ~2023-01-15 | MM_ITS ---
EXAMINATION: MM screening zhao BI w jacey HISTORY: Screening mammogram TECHNIQUE: Craniocaudal and mediolateral oblique 3-D tomosynthesis images were obtained and synthetic 2-D images were generated. Bilateral rotated lateral CC views. CAD analysis was submitted and interp reted. COMPARISON: 07/02/2017 bilateral screening mammogram BREAST PARENCHYMAL COMPOSITION: There are scattered areas of fibroglandular density. FINDINGS: There are bilateral mammographic asymmetries. Bilateral diagnostic mammography is recommend ed, with ultrasound if required. IMPRESSION: 1. Bilateral mammographic asymmetries 2. Bilateral diagnostic mammogram is recommended, with ultrasound if required BI-RADS Category 0: Incomplete: Needs additional imaging evaluation. Reviewed, dictated and finalized at location A.
== END 2023-01-15 09:39 | disposition home or self-care (01) ==
LOC: ANHIMG 09:41
PROVIDERS: PCP Internal Medicine; Visit Provider Internal Medicine
DX: Z12.31 Encounter for screening mammogram for malignant neoplasm of breast (principal); R92.8 Other abnormal and inconclusive findings on diagnostic imaging of breast
CPT/HCPCS: 77063; 77067

== ENCOUNTER 2023-01-19 19:00 | Observation (INO) | payer OTHER, SELFPAY ==
[2023-01-19] VITALS (8 sets, daily range): BP systolic 124–164; BP diastolic 61–95; PULSE 65–89; RESP 11–22; TEMP 36.4; O2SAT 97–100
--- NOTE | ~2023-01-19 | XR_ITS ---
XR knee LT 3V DATE: 01/19/2023 22:42 INDICATION: Fall TECHNIQUE: 3 views including crosstable lateral view COMPARISON: 06/02/2021 left tibia fibula 06/02/2021 left knee FINDINGS: Prominent suprapatellar knee joint effusion is noted, new since 06/02/2021. Long stem femoral and tibial knee joint replacement prosthetic devices are noted, appearing in normal alignment. No recent fracture or dislocation is detected. Osteopenia. IMPRESSION: Knee joint effusion Knee joint replacement Osteopenia Reviewed, dictated and finalized at location A.
--- NOTE | ~2023-01-19 | XR_ITS ---
XR knee RT 3V DATE: 01/19/2023 22:36 INDICATION: Fall TECHNIQUE: 3 views COMPARISON: None FINDINGS: There is severe tricompartment osteoarthritis. There is prominent suprapatellar knee joint effusion. There is chronic concavity of the lateral tibial plateau, likely due to lateral tibial finney lla fracture of uncertain age. IMPRESSION: Severe tricompartment osteoarthritis Concave lateral tibial plateau due to fracture of undetermined age Prominent knee joint effusion MRI knee examination would be helpful for more definitive evaluation Reviewed, dictated and finalized at location A.
--- NOTE | 2023-01-19 22:46 | ED.GENADULT ---
HPI - General Adult General Chief complaint: Fall Stated complaint: fall, bilateral leg pain Time Seen by Provider: 01/19/23 21:25 History of Present Illness HPI narrative: This is a 72-year-old female presenting ED with a chief complaint of knee pain. Patient has chronic arthritis is been being treated by orthopedic surgeons for [id number] arthritis. She has had a knee replacement on the left. She was walking with her walker when she tripped and fell onto both her knees. Now she is having pain in both her knees and has not been ambulatory since then. She denies hitting her head or any other injuries. There is no chest pain difficulty breathing or dizziness before the fall and appears to be purely mechanical. patient is a poor historian. She requires constant redirection. 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 Encounter for postoperative care Fibromyalgia Gastroesophageal reflux disease Hepatitis C (2010) Status post interferon. Hypertension Hypothyroidism Seizure disorder Smoking history Surgical History Surgical History History of ankle surgery (04/21/10) ORIF of left ankle fracture with subsequent hardware removal per Dr. Colon. History of arthroplasty of left knee With revision. History of tubal ligation (1975) Social History Social History Social History: The patient lives in [place]. She is disabled. Former smoker. History of alcohol abuse, she went through alcoholics anonymous and has not drank for quite some time though she could not further quantify. No drug use. Idalmis Sheppard, sister, is her emergency contact. Code status: Full code. 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 Gender identity (if verbalized by the patient): Female Spiritual care concerns: No Exam Narrative: APPEARANCE: No apparent distress. Head: atraumatic. EYES: EOMI, NOSE: Atraumatic NECK: Trachea midline RESPIRATORY: No increased rate of breathing CARDIOVASCULAR: RRR, ABDOMINAL: Non-distended MUSCULOSKELETAl: Focal exam of the lower extremities revealed surgical scars of the left knee. Patient has significant arthritis and pain with range of motion. Swelling over the medial portion of the right knee without significant effusion. Distal pulses are intact sensation light touch is intact. Extensor mechanisms are intact. NEURO: Alert. Moving 4/4 extremities SKIN:: Warm, dry. Normal color PSYCHIATRIC: Normal affect Course Vital Signs Vital signs:
[2023-01-19] MEDS: HYDROcodone/acetaminophen (*CRX) 5-325 MG TABLET 2 TAB PO (22:51)
--- NOTE | 2023-01-19 23:54 | PM.IMHP ---
H&P: HPI History of Present Illness Date/Time: 01/19/23 23:54 Chief Complaint: Fall Narrative: This is a 72-year-old female with past medical history significant for Alzheimer's disease, bipolar disorder. Patient presents to the emergency room after having a fall states that no loss of consciousness she was able to crawl to the bed and get hold of her phone and called EMS. In emergency room patient was found to be heavily soiled and unkempt she had a recent left ankle fracture brace is in place preliminary workup was significant for knee x-ray was reported as: FINDINGS: There is severe tricompartment osteoarthritis. There is prominent suprapatellar knee joint effusion. There is chronic concavity of the lateral tibial plateau, likely due to lateral tibial patella fracture of uncertain age.? IMPRESSION: Severe tricompartment osteoarthritis Concave lateral tibial plateau due to fracture of undetermined age Prominent knee joint effusion MRI knee examination would be helpful for more definitive evaluation? Patient is been admitted for further evaluation management and treatment. 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 Encounter for postoperative care Fibromyalgia Gastroesophageal reflux disease Hepatitis C (2010) Status post interferon. Hypertension Hypothyroidism Seizure disorder Smoking history Surgical History Surgical History History of ankle surgery (04/21/10) ORIF of left ankle fracture with subsequent hardware removal per Dr. Colon. History of arthroplasty of left knee With revision. History of tubal ligation (1975) Social History Social History Social History: The patient lives in [place]. She is disabled. Former smoker. History of alcohol abuse, she went through alcoholics anonymous and has not drank for quite some time though she could not further quantify. No drug use. Idalmis Sheppard, sister, is her emergency contact. Code status: Full code. Smoking packs per day: 0.75 Smoking cigarettes per day: 15.0 Years smoked: 53 Smoking pack-years: 39.75 Smoking status: Former smoker Tobacco type: cigarettes Second hand tobacco smoke exposure: No Smoking end date: 08/29/22 Alcohol intake: former Alcohol use details: HEAVIER DRINKER IN THE PAST - QUIT IN THE 40'S Substance use: never Substance use type: does not use Lack of Transportation: No Lack of Food: Never True Current Housing: I Have Housing Concerned About Future Housing: No Difficulty Paying Gas/Electric Bills: No Difficulty Paying for Meds: No Currently Unemployed: No Education: High School Diploma/GED Difficulty w/ Childcare or Family Care: No Living arrangements: alone Additional living arrangements comments: [facility] [phone] Occupation/Education: other Additional occupation/education comments: Pt states she is disabled. Gender identity (if verbalized by the patient): Female Spiritual care concerns: No Meds Home Medications and Allergies Home Medications Medication Instructions Recorded Confirmed Type duloxetine 60 mg capsule,delayed 60 mg PO DAILY 06/02/21 01/15/23 History release acetaminophen 325 mg capsule 650 mg PO Q6H PRN pain #30 caps 06/06/21 01/15/23 Rx memantine 5 mg tablet 5 mg PO HS 09/12/22 01/15/23 History hydrocodone 5 mg-acetaminophen 325 1 tablet PO Q12H PRN pain #30 tabs 12/13/22 01/15/23 Rx mg tablet Allergies Allergy/AdvReac Type Severity Reaction Status Date / Time No Known Allergies Allergy Verified 01/15/23 10:42 Vital Signs Vital Signs - 24 hr
[2023-01-20] VITALS (8 sets, daily range): BP systolic 114–156; BP diastolic 57–75; PULSE 60–84; RESP 14–20; TEMP 35.9–36.9; O2SAT 95–100; BMI 25.9
[2023-01-20 00:15] LABS: Appearance Urine Cloudy (Clear); Bacteria Urine None Seen /hpf; Bilirubin Urine Negative (Negative); Blood Urine Negative (Negative); Color Urine Yellow (Yellow); Glucose Urine UA Negative (Negative); Ketones Urine Negative (Negative); Leukocyte Esterase Ur Negative LEU/UL (Negative); Nitrate Urine Negative (Negative); Non Pathogenic Casts 0-2; Protein Urine Negative (Negative); Specific Grav Ur 1.014 (1.001-1.035); Squamous Epithelial Cell Urine None seen /hpf (Few); Urobilinogen Urine 0.2 mg/dL (<2.0); WBC Urine 0-5 /hpf; pH Urine 6.5 (5.0-9.0)
[2023-01-20 00:23] LABS: Add Urine Microscopic? YES
[2023-01-20 00:48] LABS: Influenza A QL RT-PCR Negative (Negative); Influenza B QL RT-PCR Negative (Negative); RSV RNA, RT-PCR Negative (Negative); SARS-CoV-2 RNA PCR Negative
--- NOTE | 2023-01-20 00:50 | ECG_ITS ---
Measurements Intervals [place] Rate: 77 P: 56 MN: 170 QRS: -39 QRSD: 86 T: 61 QT: 419 QTc: 475 Interpretive Statements SINUS RHYTHM LEFT AXIS DEVIATION POSSIBLE RIGHT VENTRICULAR CONDUCTION DELAY [RSR (QR) IN V1/V2] VOLTAGE CRITERIA FOR LVH POSSIBLE SEPTAL MYOCARDIAL INFARCTION , OF INDETERMINATE AGE ABNORMAL ECG COMPARED TO ECG 09/18/2022 15:14:12 HEART RATE HAS INCREASED, CANNOT RULE OUT SEPTAL INFARCT Electronically Signed On 01-20-2023 15:22:23 CDT by Alexis Nesbitt M.D.
[2023-01-20 01:03] LABS: Basophils Absolute Auto 0.1 K/mm3 (0.0-0.1); Basophils Percent Auto 0.9 % (0.2-1.2); Eosinophils Absolute Auto 0.4 K/mm3 (0-0.3); Eosinophils Percent Auto 4.3 % (0-4.4); Hemoglobin 12.5 g/dL (12.0-15.0); Immature Granulocyte Absolute 0.01 K/mm3 (0.00-0.031); Immature Granulocyte Percent A 0.1 % (0-0.5); Lymphocytes Percent Auto 31.6 % (18.3-44.2); Mean Corpuscular HGB Conc 32.9 g/dl (32-36); Mean Corpuscular Hemoglobin 32.2 pg (26-34); Mean Corpuscular Volume 97.9 fl (80-100); Mean Platelet Volume 9.3 fl (7.4-10.4); Monocytes Absolute Auto 0.7 K/mm3 (0.1-0.6); Monocytes Percent Auto 8.7 % (2.6-8.5); Neutrophils Absolute Auto 4.5 K/mm3 (1.3-6.7); Neutrophils Percent Auto 54.4 % (45.5-73.1); Platelet Count Result 281 k/mm3 (150-375); Red Blood Count 3.88 M/mm3 (4.2-5.4); Red Cell Distribution Width 14.4 % (11.5-14.5); White Blood Count 8.2 K/mm3 (4.5-10.0)
[2023-01-20 01:18] LABS: Anion Gap 9 mmol/L (8-16); Blood Urea Nitrogen 17 mg/dL (7-17); Carbon Dioxide 25 mmol/L (22-30); Chloride 105 mmol/L (98-107); Estimated CRCL calculation 56 ml/min; Estimated Glomerular Filt Rate > 60; Glucose 112 mg/dL (65-110); Potassium 3.6 mmol/L (3.4-5.0); Sodium 139 mmol/L (137-145)
--- NOTE | 2023-01-20 03:50 | PC.NURSE ---
Patient arrived on 3 Med-Surg at 03:45
[2023-01-20] MEDS: LEVOTHYROXINE SODIUM 88 MCG TABLET PO (09:45)
[2023-01-20] MEDS: BRIMONIDINE TARTRATE 0.2% OP SOLN 5 ML BTL 1 DROP LEFT EYE ×2 (09:46→20:55)
[2023-01-20] MEDS: ACETAMINOPHEN 325 MG TABLET 650 MG PO ×2 (09:47→17:25)
--- NOTE | 2023-01-20 11:00 | PM.IMPN ---
Progress Note: A&P Assessment and Plan (1) Bilateral knee effusions: Code(s): M25.461 - Effusion, right knee; M25.462 - Effusion, left knee Status: Acute Assessment and Plan: knee joint effusion noted on both knees ortho consulted consider ultrasound-guided aspiration awaiting recommendations from Ortho Pain medications on board (2) Right medial tibial plateau fracture: Code(s): S82.131A - Displaced fracture of medial condyle of right tibia, initial encounter for closed fracture Status: Acute Assessment and Plan: noted on x-ray however age undetermined Orthopedics onboard pain medications available stable (3) Failure to thrive: Status: Acute Assessment and Plan: presented discharge hold and soiled PT and OT ordered could be related to knee pain consider placement (4) Alzheimer disease: Code(s): G30.9 - Alzheimer's disease, unspecified; F02.80 - Dementia in other diseases classified elsewhere, unspecified severity, without behavioral disturbance, psychotic disturbance, mood disturbance, and anxiety Status: Acute Assessment and Plan: mental status at baseline Continue memantine trend mental status adjust therapy as indicated (5) Gait disturbance: Code(s): R26.9 - Unspecified abnormalities of gait and mobility Status: Acute Assessment and Plan: Patient with left ankle fracture brace in place PT OT consult (6) Bipolar disorder: Code(s): F31.9 - Bipolar disorder, unspecified Status: Chronic Assessment and Plan: chronic and stable Continue duloxetine Time Spent With Patient Time: 58 minutes Time with patient: Greater than 35 minutes Subjective Date/time seen: 01/20/23 1100 Interval history: 01/20/23 1100 patient is lying in bed. Patient stated that she is still having pain in her legs and her knees that she rates about a 5/10. She also states she can not walk at all. She denies any chest pain, shortness a breath, nausea, vomiting, diarrhea constipation. X-rays do show bilateral knee effusions which may need to be drained. Awaiting recommendations from Orthopedics. 01/19/23 8510 This is a 72-year-old female with past medical history significant for Alzheimer's disease, bipolar disorder.? Patient presents to the emergency room after having a fall states that no loss of consciousness she was able to crawl to the bed and get hold of her phone and called EMS.? In emergency room patient was found to be heavily soiled and unkempt she had a recent left ankle fracture brace is in place Review of Systems Review of Systems: All systems reviewed & are unremarkable except as noted in HPI and below Exam Narrative: General: well-nourished, well-appearing 72-year-old female, sitting up in bed, comfortable, NARD Neuro: awake, alert and oriented x4, speech clear, no focal neuro deficits noted HEENMT: normocephalic, atraumatic, EOMI, sclerae anicteric, moist oral mucosa Respiratory: Clear to auscultation bilaterally without crackles, rhonchi or wheezes, nonlabored breathing Cardio: regular rate, regular rhythm with S1-S2 Abdomen: nondistended, normoactive bowel sounds, soft, nontender to palpation Extremities: no edema, erythema, or tenderness to palpation, DP pulses 2+ bilaterally Left leg externally rotated which seems like a permanent finding for this patient Skin: no rashes or lesions, warm and dry Psych: appropriate mood and affect, judgment and insight intact Objective Data Vital Signs Vital Signs: Vital Signs - 24 hr 01/19/23 19:02 01/19/23 21:12 01/19/23 21:13 Temperature 97.5 F L Pulse Rate 89 73 77 Respiratory Rate 20 16 15 Blood Pressure 135/87 164/70 H 164/70 H Pulse Oximetry 98 97 98 Oxygen Delivery Room Air 01/19/23 22:02 01/19/23 22:16 01/19/23 22:37 Temperature
--- NOTE | 2023-01-20 11:00 | P.PNIM_ITS ---
Progress Note: A&P Assessment and Plan (1) Bilateral knee effusions: Code(s): M25.461 - Effusion, right knee; M25.462 - Effusion, left knee Status: Acute Assessment and Plan: * knee joint effusion noted on both knees * ortho consulted * consider ultrasound-guided aspiration * awaiting recommendations from Ortho * Pain medications on board (2) Right medial tibial plateau fracture: Code(s): S82.131A - Displaced fracture of medial condyle of right tibia, initial encounter for closed fracture Status: Acute Assessment and Plan: * noted on x-ray however age undetermined * Orthopedics onboard * pain medications available * stable (3) Failure to thrive: Status: Acute Assessment and Plan: * presented discharge hold and soiled * PT and OT ordered * could be related to knee pain * consider placement (4) Alzheimer disease: Code(s): G30.9 - Alzheimer's disease, unspecified; F02.80 - Dementia in other diseases classified elsewhere, unspecified severity, without behavioral disturbance, psychotic disturbance, mood disturbance, and anxiety Status: Acute Assessment and Plan: * mental status at baseline * Continue memantine * trend mental status * adjust therapy as indicated (5) Gait disturbance: Code(s): R26.9 - Unspecified abnormalities of gait and mobility Status: Acute Assessment and Plan: * Patient with left ankle fracture brace in place * PT OT consult (6) Bipolar disorder: Code(s): F31.9 - Bipolar disorder, unspecified Status: Chronic Assessment and Plan: * chronic and stable * Continue duloxetine Time Spent With Patient Time: 58 minutes Time with patient: Greater than 35 minutes Subjective Date/time seen: 01/20/23 1100 Interval history: 01/20/23 1100 patient is lying in bed. Patient stated that she is still having pain in her legs and her knees that she rates about a 5/10. She also states she can not walk at all. She denies any chest pain, shortness a breath, nausea, vomiting, diarrhea constipation. X-rays do show bilateral knee effusions which may need to be drained. Awaiting recommendations from Orthopedics. 01/19/23 [id number] This is a 72-year-old female with past medical history significant for Alzheimer's disease, bipolar disorder.? Patient presents to the emergency room after having a fall states that no loss of consciousness she was able to crawl to the bed and get hold of her phone and called EMS.? In emergency room patient was found to be heavily soiled and unkempt she had a recent left ankle fracture brace is in place Review of Systems Review of Systems: All systems reviewed & are unremarkable except as noted in HPI and below Exam Narrative: General: well-nourished, well-appearing 72-year-old female, sitting up in bed, comfortable, NARD Neuro: awake, alert and oriented x4, speech clear, no focal neuro deficits noted HEENMT: normocephalic, atraumatic, EOMI, sclerae anicteric, moist oral mucosa Respiratory: Clear to auscultation bilaterally without crackles, rhonchi or wheezes, nonlabored breathing Cardio: regular rate, regular rhythm with S1-S2 Abdomen: nondistended, normoactive bowel sounds, soft, nontender to palpation Extremities: no edema, erythema, or tende
[2023-01-20] MEDS: HYDROcodone/acetaminophen (*CRX) 5-325 MG TABLET 1 TAB PO ×2 (12:56→22:18)
[2023-01-20] MEDS: traZODone HCL 50 MG TABLET 100 MG PO (20:54)
[2023-01-20] MEDS: MEMANTINE 5 MG TABLET PO (20:54)
[2023-01-20] MEDS: DULoxetine HCL 30 MG CAPSULE.DR PO (20:55)
[2023-01-20] MEDS: TIMOLOL MALEATE 0.5% OP SOLN 5 ML BOTTLE 1 DROP LEFT EYE (20:55)
[2023-01-21] MEDS: LEVOTHYROXINE SODIUM 88 MCG TABLET PO (05:57)
[2023-01-21 06:00] VITALS: BP 113/62; PULSE 88; RESP 18; TEMP 36.1; O2SAT 98
[2023-01-21 06:10] LABS: Basophils Absolute Auto 0.1 K/mm3 (0.0-0.1); Basophils Percent Auto 1.4 % (0.2-1.2); Eosinophils Absolute Auto 0.4 K/mm3 (0-0.3); Eosinophils Percent Auto 7.2 % (0-4.4); Hematocrit 37.6 % (37.0-47.0); Immature Granulocyte Absolute 0.02 K/mm3 (0.00-0.031); Immature Granulocyte Percent A 0.3 % (0-0.5); Lymphocytes Absolute Auto 1.98 K/mm3 (0.9-3.2); Lymphocytes Percent Auto 33.8 % (18.3-44.2); Mean Corpuscular HGB Conc 31.9 g/dl (32-36); Mean Corpuscular Hemoglobin 31.7 pg (26-34); Mean Corpuscular Volume 99.2 fl (80-100); Mean Platelet Volume 8.7 fl (7.4-10.4); Monocytes Absolute Auto 0.4 K/mm3 (0.1-0.6); Monocytes Percent Auto 7.5 % (2.6-8.5); Neutrophils Absolute Auto 2.9 K/mm3 (1.3-6.7); Neutrophils Percent Auto 49.8 % (45.5-73.1); Platelet Count Result 259 k/mm3 (150-375); Red Blood Count 3.79 M/mm3 (4.2-5.4); Red Cell Distribution Width 14.3 % (11.5-14.5); White Blood Count 5.9 K/mm3 (4.5-10.0)
[2023-01-21 06:22] LABS: Alanine Aminotransferase 12 U/L (6-35); Albumin Level 3.9 g/dL (3.5-5.1); Alkaline Phosphatase 87 U/L (38-126); Anion Gap 4 mmol/L (8-16); Aspartate Amino Transferase 20 U/L (14-36); Bilirubin,Total 0.6 mg/dL (0.2-1.3); Blood Urea Nitrogen 14 mg/dL (7-17); Calcium 8.7 mg/dL (8.4-10.2); Carbon Dioxide 27 mmol/L (22-30); Chloride 107 mmol/L (98-107); Estimated CRCL calculation 71 ml/min; Estimated Glomerular Filt Rate > 60; Glucose 96 mg/dL (65-110); Magnesium 2.2 mg/dL (1.6-2.3); Potassium 3.7 mmol/L (3.4-5.0); Sodium 138 mmol/L (137-145)
[2023-01-21] MEDS: TIMOLOL MALEATE 0.5% OP SOLN 5 ML BOTTLE 1 DROP LEFT EYE ×2 (08:15→21:25)
[2023-01-21] MEDS: BRIMONIDINE TARTRATE 0.2% OP SOLN 5 ML BTL 1 DROP LEFT EYE ×2 (08:15→21:25)
[2023-01-21] MEDS: HYDROcodone/acetaminophen (*CRX) 5-325 MG TABLET 1 TAB PO ×2 (08:22→14:20)
[2023-01-21] MEDS: LATANOPROST 0.005% OP SOLN 2.5 ML BTL 1 DROP LEFT EYE (10:03)
--- NOTE | 2023-01-21 10:15 | PM.IMPN ---
Progress Note: A&P Assessment and Plan (1) Bilateral knee effusions: Code(s): M25.461 - Effusion, right knee; M25.462 - Effusion, left knee Status: Acute Assessment and Plan: knee joint effusion noted on both knees ortho consulted consider ultrasound-guided aspiration awaiting recommendations from Ortho Pain medications on board Added back the meloxicam PO daily One time dose of toradol Started gabapentin for possible neuropathy involvement (2) Right medial tibial plateau fracture: Code(s): S82.131A - Displaced fracture of medial condyle of right tibia, initial encounter for closed fracture Status: Acute Assessment and Plan: noted on x-ray however age undetermined Orthopedics onboard pain medications available stable (3) Failure to thrive: Status: Acute Assessment and Plan: presented discharge hold and soiled PT and OT ordered could be related to knee pain consider placement Could be related to the dementia (4) Alzheimer disease: Code(s): G30.9 - Alzheimer's disease, unspecified; F02.80 - Dementia in other diseases classified elsewhere, unspecified severity, without behavioral disturbance, psychotic disturbance, mood disturbance, and anxiety Status: Acute Assessment and Plan: mental status at baseline Continue memantine trend mental status adjust therapy as indicated (5) Gait disturbance: Code(s): R26.9 - Unspecified abnormalities of gait and mobility Status: Acute Assessment and Plan: Patient with left ankle fracture brace in place PT OT consult (6) Bipolar disorder: Code(s): F31.9 - Bipolar disorder, unspecified Status: Chronic Assessment and Plan: chronic and stable Continue duloxetine Time Spent With Patient Time: 42 minutes Time with patient: Greater than 35 minutes Subjective Date/time seen: 01/21/23 1015 Interval history: 01/21/23 1015 Patient is a bit frustrated today. Patient stated that she cannot see the TV. Did clean her classes and did make a difference. She is also complaining of leg cramping and pain in her knees which she rates a 5/10. She denies any current chest pain, shortness a breath, nausea, vomiting, diarrhea constipation. Did restart her meloxicam along with given her dose of Toradol. Not sure if some of this neuropathy so started gabapentin as well. 01/20/23 1100 patient is lying in bed. Patient stated that she is still having pain in her legs and her knees that she rates about a 5/10. She also states she can not walk at all. She denies any chest pain, shortness a breath, nausea, vomiting, diarrhea constipation. X-rays do show bilateral knee effusions which may need to be drained. Awaiting recommendations from Orthopedics. 01/19/23 [id number] This is a 72-year-old female with past medical history significant for Alzheimer's disease, bipolar disorder.? Patient presents to the emergency room after having a fall states that no loss of consciousness she was able to crawl to the bed and get hold of her phone and called EMS.? In emergency room patient was found to be heavily soiled and unkempt she had a recent left ankle fracture brace is in place Review of Systems Review of Systems: All systems reviewed & are unremarkable except as noted in HPI and below Exam Narrative: General: well-nourished, well-appearing 72-year-old female, sitting up in bed, comfortable, NARD Neuro: awake, alert and oriented x4, speech clear, no focal neuro deficits noted HEENMT: normocephalic, atraumatic, EOMI, sclerae anicteric, moist oral mucosa Respiratory: Clear to auscultation bilaterally without crackles, rhonchi or wheezes, nonlabored breathing Cardio: regular rate, regular rhythm with S1-S2 Abdomen: nondistended, normoactive bowel sounds, soft, nontender to palpation
--- NOTE | 2023-01-21 10:15 | P.PNIM_ITS ---
Progress Note: A&P Assessment and Plan (1) Bilateral knee effusions: Code(s): M25.461 - Effusion, right knee; M25.462 - Effusion, left knee Status: Acute Assessment and Plan: * knee joint effusion noted on both knees * ortho consulted * consider ultrasound-guided aspiration * awaiting recommendations from Ortho * Pain medications on board * Added back the meloxicam PO daily * One time dose of toradol * Started gabapentin for possible neuropathy involvement (2) Right medial tibial plateau fracture: Code(s): S82.131A - Displaced fracture of medial condyle of right tibia, initial encounter for closed fracture Status: Acute Assessment and Plan: * noted on x-ray however age undetermined * Orthopedics onboard * pain medications available * stable (3) Failure to thrive: Status: Acute Assessment and Plan: * presented discharge hold and soiled * PT and OT ordered * could be related to knee pain * consider placement * Could be related to the dementia (4) Alzheimer disease: Code(s): G30.9 - Alzheimer's disease, unspecified; F02.80 - Dementia in other diseases classified elsewhere, unspecified severity, without behavioral disturbance, psychotic disturbance, mood disturbance, and anxiety Status: Acute Assessment and Plan: * mental status at baseline * Continue memantine * trend mental status * adjust therapy as indicated (5) Gait disturbance: Code(s): R26.9 - Unspecified abnormalities of gait and mobility Status: Acute Assessment and Plan: * Patient with left ankle fracture brace in place * PT OT consult (6) Bipolar disorder: Code(s): F31.9 - Bipolar disorder, unspecified Status: Chronic Assessment and Plan: * chronic and stable * Continue duloxetine Time Spent With Patient Time: 42 minutes Time with patient: Greater than 35 minutes Subjective Date/time seen: 01/21/23 1015 Interval history: 01/21/23 1015 Patient is a bit frustrated today. Patient stated that she cannot see the TV. Did clean her classes and did make a difference. She is also complaining of leg cramping and pain in her knees which she rates a 5/10. She denies any current chest pain, shortness a breath, nausea, vomiting, diarrhea constipation. Did restart her meloxicam along with given her dose of Toradol. Not sure if some of this neuropathy so started gabapentin as well. 01/20/23 1100 patient is lying in bed. Patient stated that she is still having pain in her legs and her knees that she rates about a 5/10. She also states she can not walk at all. She denies any chest pain, shortness a breath, nausea, vomiting, diarrhea constipation. X-rays do show bilateral knee effusions which may need to be drained. Awaiting recommendations from Orthopedics. 01/19/23 2675 This is a 72-year-old female with past medical history significant for Alzheimer's disease, bipolar disorder.? Patient presents to the emergency room after having a fall states that no loss of consciousness she was able to crawl to the bed and get hold of her phone and called EMS.? In emergency room patient was found to be heavily soiled and unkempt she had a recent left ankle fracture brace is in place Review of Systems Review of Systems: All systems reviewed &
[2023-01-21] MEDS: KETOROLAC 15 MG/ML VIAL (*BKC) IV PUSH (10:34)
[2023-01-21] MEDS: GABAPENTIN 100 MG CAPSULE PO ×3 (10:34→18:54)
[2023-01-21] MEDS: MELOXICAM 7.5 MG TABLET PO (12:47)
[2023-01-21 14:00] VITALS: BP 130/55; PULSE 71; RESP 20; TEMP 36.6; O2SAT 97
[2023-01-21 20:00] VITALS: PULSE 71; RESP 20; O2SAT 97
[2023-01-21] MEDS: traZODone HCL 50 MG TABLET 100 MG PO (21:24)
[2023-01-21] MEDS: DULoxetine HCL 30 MG CAPSULE.DR PO (21:25)
[2023-01-21] MEDS: MEMANTINE 5 MG TABLET PO (21:25)
[2023-01-21 21:40] VITALS: BP 106/42; PULSE 78; RESP 18; TEMP 36.4; O2SAT 97
[2023-01-22] MEDS: LEVOTHYROXINE SODIUM 88 MCG TABLET PO (05:18)
[2023-01-22 06:00] VITALS: BP 99/41; PULSE 58; RESP 16; TEMP 36.2; O2SAT 99
[2023-01-22 07:19] LABS: Basophils Absolute Auto 0.1 K/mm3 (0.0-0.1); Basophils Percent Auto 1.2 % (0.2-1.2); Eosinophils Absolute Auto 0.5 K/mm3 (0-0.3); Eosinophils Percent Auto 7.2 % (0-4.4); Hematocrit 39.6 % (37.0-47.0); Hemoglobin 12.6 g/dL (12.0-15.0); Immature Granulocyte Absolute 0.02 K/mm3 (0.00-0.031); Immature Granulocyte Percent A 0.3 % (0-0.5); Lymphocytes Absolute Auto 2.19 K/mm3 (0.9-3.2); Lymphocytes Percent Auto 33.3 % (18.3-44.2); Mean Corpuscular HGB Conc 31.8 g/dl (32-36); Mean Corpuscular Hemoglobin 31.4 pg (26-34); Mean Corpuscular Volume 98.8 fl (80-100); Monocytes Absolute Auto 0.5 K/mm3 (0.1-0.6); Monocytes Percent Auto 7.9 % (2.6-8.5); Neutrophils Absolute Auto 3.3 K/mm3 (1.3-6.7); Neutrophils Percent Auto 50.1 % (45.5-73.1); Platelet Count Result 279 k/mm3 (150-375); Red Blood Count 4.01 M/mm3 (4.2-5.4); Red Cell Distribution Width 13.9 % (11.5-14.5); White Blood Count 6.6 K/mm3 (4.5-10.0)
[2023-01-22 07:26] LABS: Alanine Aminotransferase 13 U/L (6-35); Alkaline Phosphatase 87 U/L (38-126); Anion Gap 7 mmol/L (8-16); Aspartate Amino Transferase 21 U/L (14-36); Bilirubin,Total 0.4 mg/dL (0.2-1.3); Blood Urea Nitrogen 21 mg/dL (7-17); Calcium 8.8 mg/dL (8.4-10.2); Carbon Dioxide 30 mmol/L (22-30); Chloride 102 mmol/L (98-107); Estimated CRCL calculation 52 ml/min; Estimated Glomerular Filt Rate > 60; Glucose 94 mg/dL (65-110); Magnesium 2.3 mg/dL (1.6-2.3); Potassium 4.1 mmol/L (3.4-5.0); Sodium 139 mmol/L (137-145)
[2023-01-22] MEDS: HYDROcodone/acetaminophen (*CRX) 5-325 MG TABLET 1 TAB PO (07:49)
--- NOTE | 2023-01-22 08:30 | PM.DS ---
DS: Admitting Diagnosis Discharge Date 01/22/23829 Admitting Diagnosis Fall, knee pain DS: Discharge Diagnosis Discharge Diagnosis (1) Bilateral knee effusions: Code(s): M25.461 - Effusion, right knee; M25.462 - Effusion, left knee Status: Acute Assessment and Plan: knee joint effusion noted on both knees ortho consulted consider ultrasound-guided aspiration awaiting recommendations from Ortho Pain medications on board Added back the meloxicam PO daily One time dose of toradol Started gabapentin for possible neuropathy involvement (2) Right medial tibial plateau fracture: Code(s): S82.131A - Displaced fracture of medial condyle of right tibia, initial encounter for closed fracture Status: Acute Assessment and Plan: noted on x-ray however age undetermined Orthopedics onboard pain medications available stable (3) Failure to thrive: Status: Acute Assessment and Plan: presented discharge hold and soiled PT and OT ordered could be related to knee pain consider placement Could be related to the dementia (4) Alzheimer disease: Code(s): G30.9 - Alzheimer's disease, unspecified; F02.80 - Dementia in other diseases classified elsewhere, unspecified severity, without behavioral disturbance, psychotic disturbance, mood disturbance, and anxiety Status: Acute Assessment and Plan: mental status at baseline Continue memantine trend mental status adjust therapy as indicated (5) Gait disturbance: Code(s): R26.9 - Unspecified abnormalities of gait and mobility Status: Acute Assessment and Plan: Patient with left ankle fracture brace in place PT OT consult (6) Bipolar disorder: Code(s): F31.9 - Bipolar disorder, unspecified Status: Chronic Assessment and Plan: chronic and stable Continue duloxetine DS: Summary Hospital Course Hospital Course: Patient is a 72-year-old female with a past medical history of Alzheimer's, bipolar, multiple orthopedic surgeries to bilateral lower extremities, bipolar, anxiety, depression who presented to the ED after having a fall at home. It was noted that patient was at home she had fallen was unable to care for herself at that time. She was able to crawl and called EMS for help. Upon arrival to the ED she was noted to be heavily soiled and uncapped. X-rays of the bilateral knees have been taken and showed bilateral effusions. Orthopedics has been consulted. Patient does follow-up in the clinic and has an appointment coming up. Patient also does complain and has been complaining of pain pain medications has been adjusted and a gabapentin has been added. Patient has been able to stand and walk with a walker and use the commode. Patient is currently requesting discharge and is wanting to go home. Orthopedics did come and see the patient and recommended . Currently patient is stable for discharge for labs and vital signs. Patient will be returning . Status at Discharge Functional status at discharge: uses cane/walker Overall status at discharge: patient is progressing back to baseline Time Spent with Patient Time attestation: Total time spent providing and/or coordinating discharge services: 48 minutes Time spent: Greater than 30 minutes Specific discharge activities: Diagnostic testing, chart review, developing a treatment plan, education, care coordination documentation, physical exam, result review Exam Narrative: General: well-nourished, well-appearing 72-year-old female, sitting up in bed, comfortable, NARD Neuro: awake, alert and oriented x4, speech clear, no focal neuro deficits noted HEENMT: normocephalic, atraumatic, EOMI, sclerae anicteric, moist oral mucosa Respiratory: Clear to auscultation bilaterally without crackles, rhonchi or wheezes,
[2023-01-22] MEDS: ENOXAPARIN 40 MG/0.4 ML SYRINGE SUB-Q (09:58)
[2023-01-22] MEDS: MELOXICAM 7.5 MG TABLET PO (09:58)
[2023-01-22] MEDS: BRIMONIDINE TARTRATE 0.2% OP SOLN 5 ML BTL 1 DROP LEFT EYE (09:59)
[2023-01-22] MEDS: LATANOPROST 0.005% OP SOLN 2.5 ML BTL 1 DROP LEFT EYE (09:59)
[2023-01-22] MEDS: TIMOLOL MALEATE 0.5% OP SOLN 5 ML BOTTLE 1 DROP LEFT EYE (10:00)
[2023-01-22] MEDS: GABAPENTIN 100 MG CAPSULE PO ×3 (10:00→16:45)
[2023-01-22 12:02] VITALS: BMI 25.9
--- NOTE | 2023-01-22 12:57 | PM.CNOR ---
Assessment and Plan Assessment and plan (1) Right knee DJD: Code(s): M17.11 - Unilateral primary osteoarthritis, right knee Status: Acute Assessment and Plan: History, exam and radiographs reviewed with the patient. Patient recently seen by Dr. Huerta on January 15, 2023. Patient underwent a right knee injection at that time for [id number] right knee joint DJD. Radiographs unchanged. No sign of new fracture. There is a chronic concavity of the lateral tibial plateau. This appears unchanged from previous radiographs on 01/15. On exam, no appreciable palpable knee joint effusion. Patient has active and passive range of motion without severe pain. Patient has been working well with PT and OT. Recommend pain control for degenerative joint disease. Meloxicam restarted by the hospitalist team, gabapentin added. Recommend walker or cane for ambulation and gait balance. Patient may follow up with Dr. Huerta for repeat injection as early as April 16. She may contact our office for follow-up as an outpatient if pain persists. No surgical indication at this time. Thank you for allowing us to assist in the care of this patient. (2) Right medial tibial plateau fracture: Code(s): S82.131A - Displaced fracture of medial condyle of right tibia, initial encounter for closed fracture Status: Acute Assessment and Plan: This appears to be chronic in nature. no new fracture in comparison to radiographs on 01/15 despite fall following this visit which prompted arrival to the emergency room. No appreciable knee joint effusion or hematoma. Patient may be weight-bearing as tolerated with assistive device to prevent falls. (3) Bilateral knee effusions: Code(s): M25.461 - Effusion, right knee; M25.462 - Effusion, left knee Status: Acute Assessment and Plan: No appreciable palpable knee joint effusion bilaterally to prompt need for aspiration at this time. No signs of joint infection. Active and passive range of motion without severe pain. Recommend ice, compression with Minesh wrap or neoprene knee sleeve. Ambulation with walker to prevent recurrent falls. Patient started back on meloxicam, gabapentin added for pain relief as well. May follow up with Dr. Huerta the outpatient orthopedic clinic. (4) Gait disturbance: Code(s): R26.9 - Unspecified abnormalities of gait and mobility Status: Acute Assessment and Plan: Patient with poor gait and balance. Would be beneficial to have home physical therapy versus outpatient PT. recommend use of walker or cane at all times. (5) History of total knee arthroplasty: Code(s): Z96.659 - Presence of unspecified artificial knee joint Status: Acute Assessment and Plan: Patient with a history of left total knee arthroplasty. Radiographs reviewed. No evidence of fracture. No dislocation. Patient does have osteopenia. On exam, no appreciable knee joint effusion. Active and passive range of motion without pain. No redness, no warmth. No signs of septic knee joint at this time. Patient may follow up as an outpatient in the orthopedic clinic. History of Present Illness HPI Consult date: 01/22/23 Chief complaint: Frequent Falls Narrative: 72-year-old female admitted to [facility] with complaints of knee pain. Patient reports that she fell onto bilateral knees which prompted her arrival to the emergency room on 01/19/2023. Radiographs of the right knee reveal severe tricompartment osteoarthritis, chronic concave lateral tibial plateau due to fracture of undetermined age and a knee joint effusion. This finding is unchanged from radiographs in the outpatient orthopedic clinic on 01/15/2023. Radiographs of the left knee reveal a long stem femoral and tibial knee joint replacement in good alignment, osteopenia and a suprapatellar knee joint effusion. Patient was admitted to the hospital for pain control. Orthopedic consult reesteban
[2023-01-22 14:00] VITALS: BP 116/65; PULSE 69; RESP 16; TEMP 36.2; O2SAT 100
== END 2023-01-22 17:10 | disposition home or self-care (01) ==
LOC: ANHED 23:58 → ANH3MEDSUR 01-20 03:36
PROVIDERS: Nurse Practitioner; Admitting Provider Internal Medicine; Emergency Provider Emergency Medicine; PCP Internal Medicine; Visit Provider Chiropractor
DX: M25.461 Effusion, right knee (principal); M25.462 Effusion, left knee; S82.131A Displaced fracture of medial condyle of right tibia, initial encounter for closed fracture; G30.9 Alzheimer's disease, unspecified; R62.7 Adult failure to thrive; R26.9 Unspecified abnormalities of gait and mobility; F31.9 Bipolar disorder, unspecified; M17.11 Unilateral primary osteoarthritis, right knee; Z96.652 Presence of left artificial knee joint; Z99.89 Dependence on other enabling machines and devices; Z20.822 Contact with and (suspected) exposure to COVID-19; F02.80 Dementia in other diseases classified elsewhere, unspecified severity, without behavioral disturbance, psychotic disturbance, mood disturbance, and anxiety; F41.9 Anxiety disorder, unspecified; M79.7 Fibromyalgia; K21.9 Gastro-esophageal reflux disease without esophagitis; I10 Essential (primary) hypertension; E03.9 Hypothyroidism, unspecified; G40.909 Epilepsy, unspecified, not intractable, without status epilepticus; R94.31 Abnormal electrocardiogram [ECG] [EKG]; M85.80 Other specified disorders of bone density and structure, unspecified site; Z79.1 Long term (current) use of non-steroidal anti-inflammatories (NSAID); Z87.891 Personal history of nicotine dependence; Z79.891 Long term (current) use of opiate analgesic; Z79.899 Other long term (current) drug therapy
CPT/HCPCS: 36415; 73562; 80048; 80053; 81001; 83735; 85025; 87637; 93005; 96372; 96374; 99285; A9270; G0378; G0379; J0131; J1650; J1885

== ENCOUNTER 2023-05-04 10:25 | Outpatient (CLI) | payer OTHER, SELFPAY ==
--- NOTE | ~2023-05-04 | MMUS_ITS ---
EXAMINATION: MM diagnostic zhao BI w jacey, US breast RT limited HISTORY: Follow-up breast asymmetries TECHNIQUE: Additional 3-D tomosynthesis images of the breasts were performed and synthetic 2-D images were generated. CAD analysis was submitted and interpreted. High resolution Limited right breast ult rasound was performed. COMPARISON: 07/02/2017 BREAST PARENCHYMAL COMPOSITION: Breast composed of scattered areas of fibroglandular density FINDINGS: MAMMOGRAPHIC FINDINGS: There are no suspicious next masses, calcifications or architectural distortion in either breast to s uggest malignancy. ULTRASOUND: Limited right breast ultrasound: Normal heterogeneous echotexture without focal solid or cystic mass. IMPRESSION: 1. No evidence for malignancy in either breast. 2. Routine yearly screening mammogram and regular clinical breast examination are recommended. BI-RADS Category 1: Negative Reviewed, dictated and finalized at location A. IMPRESSION: 1. No evidence for malignancy in either breast. 2. Routine yearly screening mammogram and regular clinical breast examination a re recommended. BI-RADS Category 1: Negative
== END 2023-05-04 10:26 | disposition home or self-care (01) ==
LOC: ANHIMG 10:28
PROVIDERS: PCP Internal Medicine; Visit Provider Internal Medicine
DX: R92.8 Other abnormal and inconclusive findings on diagnostic imaging of breast (principal)
CPT/HCPCS: 76642; 77062; 77066; G0279

== ENCOUNTER 2023-05-14 11:32 | Outpatient (CLI) | payer OTHER, SELFPAY ==
--- NOTE | 2023-05-14 12:14 | ECG_ITS ---
Measurements Intervals Bradley Rate: 76 P: 66 NM: 169 QRS: -26 QRSD: 89 T: 52 QT: 402 QTc: 454 Interpretive Statements SINUS RHYTHM POSSIBLE LEFT ATRIAL ENLARGEMENT CANNOT RULE OUT SEPTAL INFARCT, AGE INDETERMINATE BASELINE ARTIFACT- II, III, AVF, V3 ABNORMAL ECG COMPARED TO ECG 01/20/2023 00:59:37 NO SIGNIFICANT CHANGES Electronically Signed On 05-14-2023 16:29:51 CDT by Ezra Jay D.O.
[2023-05-14 12:22] LABS: Basophils Absolute Auto 0.1 K/mm3 (0.0-0.1); Basophils Percent Auto 0.7 % (0.2-1.2); Eosinophils Percent Auto 0.3 % (0-4.4); Hematocrit 36.6 % (37.0-47.0); Hemoglobin 12.3 g/dL (12.0-15.0); Immature Granulocyte Absolute 0.03 K/mm3 (0.00-0.031); Immature Granulocyte Percent A 0.3 % (0-0.5); Lymphocytes Absolute Auto 1.91 K/mm3 (0.9-3.2); Lymphocytes Percent Auto 21.5 % (18.3-44.2); Mean Corpuscular HGB Conc 33.6 g/dl (32-36); Mean Corpuscular Hemoglobin 31.9 pg (26-34); Mean Corpuscular Volume 95.1 fl (80-100); Mean Platelet Volume 9.2 fl (7.4-10.4); Monocytes Absolute Auto 0.9 K/mm3 (0.1-0.6); Monocytes Percent Auto 9.6 % (2.6-8.5); Neutrophils Percent Auto 67.6 % (45.5-73.1); Platelet Count Result 254 k/mm3 (150-375); Red Blood Count 3.85 M/mm3 (4.2-5.4); Red Cell Distribution Width 12.6 % (11.5-14.5); White Blood Count 8.9 K/mm3 (4.5-10.0)
[2023-05-14 12:30] LABS: Anion Gap 7 mmol/L (8-16); Blood Urea Nitrogen 14 mg/dL (7-17); Calcium 9.6 mg/dL (8.4-10.2); Carbon Dioxide 23 mmol/L (22-30); Chloride 99 mmol/L (98-107); Estimated Glomerular Filt Rate > 60; Glucose 89 mg/dL (65-110); Potassium 3.9 mmol/L (3.4-5.0); Sodium 129 mmol/L (137-145)
[2023-05-14 17:03] LABS: Urine Cotinine NEGATIVE
[2023-05-15 15:59] LABS: Appearance Urine Turbid (Clear); Bacteria Urine 2+ /hpf; Bilirubin Urine Negative (Negative); Blood Urine Negative (Negative); Color Urine Yellow (Yellow); Glucose Urine UA Negative (Negative); Ketones Urine Trace mg/dL (Negative); Leukocyte Esterase Ur Negative LEU/UL (Negative); Nitrate Urine Negative (Negative); Non Pathogenic Casts 0-2; Protein Urine Negative (Negative); Specific Grav Ur 1.013 (1.001-1.035); Squamous Epithelial Cell Urine Occasional /hpf (Few); Urobilinogen Urine 0.2 mg/dL (<2.0); WBC Urine 0-5 /hpf; pH Urine 7.5 (5.0-9.0)
[2023-05-15 16:18] LABS: Add Urine Microscopic? YES
== END 2023-05-14 11:33 | disposition home or self-care (01) ==
LOC: ANHLAB 11:34
PROVIDERS: PCP Internal Medicine; Visit Provider Orthopaedic Surgery
DX: E03.9 Hypothyroidism, unspecified (principal); E87.1 Hypo-osmolality and hyponatremia; M17.11 Unilateral primary osteoarthritis, right knee; N17.9 Acute kidney failure, unspecified; Z87.891 Personal history of nicotine dependence
CPT/HCPCS: 80048; 80307; 81001; 85025; 93005

== ENCOUNTER 2023-05-22 18:25 | Emergency (ER) | payer OTHER, SELFPAY ==
--- NOTE | ~2023-05-22 | XR_ITS ---
EXAM: XR hip RT 2V w AP pelvis DATE: 05/22/2023 19:25 HISTORY: R hip pain w/o injury, ambulates with walker . COMPARISON: None available. FINDINGS: Decreased mineralization. No fracture or dislocation. No lytic or blastic lesion. Degenera tive lumbar disc disease. Severe right and mild left hip osteoarthritis. Old healed left obturator ri ng fractures. No erosion or periosteal change. Soft tissues within normal limits. IMPRESSION: No acute osseous finding in the pelvis or right hip. Reviewed, dictated and finalized at location K.
[2023-05-22 18:30] VITALS: BP 148/75; PULSE 74; RESP 16; TEMP 36.8; O2SAT 98
[2023-05-22 20:03] VITALS: PULSE 72; RESP 23; O2SAT 98
--- NOTE | 2023-05-22 20:05 | ED.GENADULT ---
HPI - General Adult General Chief complaint: Unspecified Stated complaint: right hip pain Time Seen by Provider: 05/22/23 19:12 History of Present Illness HPI narrative: 72-year-old female with history of multiple issues including chronic right hip pain resulting in difficulty walking, she is here because she feels like she has been going to the bathroom constantly, with some burning and suprapubic pain, and it feels like she has a UTI. No back or flank pain Related Data Home Medications Medication Instructions Recorded Confirmed memantine 5 mg tablet 5 mg PO HS 09/12/22 05/14/23 brexpiprazole 3 mg tablet (Rexulti) 3 mg PO HS 01/20/23 05/14/23 brimonidine 0.2 % eye drops 1 drp LEFT EYE BID 01/20/23 05/14/23 duloxetine 30 mg capsule,delayed 30 mg PO DAILY 01/20/23 05/14/23 release latanoprost 0.005 % eye drops 1 drp LEFT EYE DAILY 01/20/23 05/14/23 levothyroxine 88 mcg tablet 88 mcg PO DAILY 01/20/23 05/14/23 meloxicam 7.5 mg tablet 7.5 mg PO DAILY 01/20/23 05/14/23 timolol maleate 0.5 % eye drops 1 drp LEFT EYE BID 01/20/23 05/14/23 trazodone 100 mg tablet 100 mg PO HS 01/20/23 05/14/23 Allergies Allergy/AdvReac Type Severity Reaction Status Date / Time No Known Allergies Allergy Verified 05/14/23 10:29 Review of Systems Review of Systems: CONST: No fever. HEENT: No sore throat C/V: No chest pain RESP: No cough GI: Slight suprapubic discomfort : Dysuria and frequency M/S: Right hip pain SKIN: No rash. 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 Encounter for postoperative care Fibromyalgia Gastroesophageal reflux disease Hepatitis C (2010) Status post interferon. Hypertension Hypothyroidism Seizure disorder Smoking history Surgical History Surgical History History of ankle surgery (04/21/10) ORIF of left ankle fracture with subsequent hardware removal per Dr. Colon. History of arthroplasty of left knee With revision. History of total knee arthroplasty History of tubal ligation (1975) Family History Family History Mother Hypertension Social History Social History Social History: The patient lives in [place]. She is disabled. Former smoker. History of alcohol abuse, she went through alcoholics anonymous and has not drank for quite some time though she could not further quantify. No drug use. Idalmis Sheppard, sister, is her emergency contact. Code status: Full code. Smoking packs per day: 1 Smoking cigarettes per day: 20.0 Years smoked: 53 Smoking pack-years: 53.00 Smoking status: Former smoker Tobacco type: cigarettes Second hand tobacco smoke exposure: No Smoking end date: 01/14/00 Alcohol intake: former Drinks per week: 24 Alcohol use details: HEAVIER DRINKER IN THE PAST - QUIT IN THE 40'S Substance use: never Substance use type: does not use Lack of Transportation: No Lack of Food: Never True Current Housing: I Have Housing Concerned About Future Housing: No Difficulty Paying Gas/Electric Bills: No Difficulty Paying for Meds: No Currently Unemployed: No Education: Grade School Difficulty w/ Childcare or Family Care: No Living arrangements: alone Additional living arrangements comments: [facility] [phone] Occupation/Education: other Additional occupation/education comments: Pt states she is disabled. Gender identity (if verbalized by the patient): Female Spiritual care concerns: No Exam Narrative: EXAMINATION OF ORGAN SYSTEMS/BODY AREAS: Constitutional: Vital signs per nursing GEN
[2023-05-22 20:07] LABS: Appearance Urine Turbid (Clear); Bacteria Urine None Seen /hpf; Bilirubin Urine Negative (Negative); Blood Urine Negative (Negative); Budding Yeast Urine Present /hpf; Color Urine Yellow (Yellow); Glucose Urine UA Negative (Negative); Ketones Urine Negative (Negative); Leukocyte Esterase Ur Trace LEU/UL (Negative); Nitrate Urine Negative (Negative); Non Pathogenic Casts 0-2; Protein Urine Negative (Negative); Specific Grav Ur 1.011 (1.001-1.035); Squamous Epithelial Cell Urine None seen /hpf (Few); WBC Urine 0-5 /hpf
[2023-05-22 20:08] LABS: Add Urine Microscopic? YES
[2023-05-22 20:15] VITALS: BP 145/77; PULSE 76; RESP 17; O2SAT 98
[2023-05-22] MEDS: FLUCONAZOLE 150 MG TABLET PO (20:21)
--- NOTE | 2023-05-22 20:28 | PC.NURSE ---
pt is resting and has been discharged. pt is extremely anxious. sister has been called for a ride
--- NOTE | 2023-05-22 20:43 | PC.NURSE ---
pt is covered in human feces from head to toe and pt is very disheveled
== END 2023-05-22 20:43 | disposition home or self-care (01) ==
PROVIDERS: Emergency Provider Emergency Medicine; PCP Internal Medicine
DX: B37.49 Other urogenital candidiasis (principal); G30.9 Alzheimer's disease, unspecified; F02.80 Dementia in other diseases classified elsewhere, unspecified severity, without behavioral disturbance, psychotic disturbance, mood disturbance, and anxiety; F41.9 Anxiety disorder, unspecified; M19.90 Unspecified osteoarthritis, unspecified site; F31.9 Bipolar disorder, unspecified; M79.7 Fibromyalgia; K21.9 Gastro-esophageal reflux disease without esophagitis; I10 Essential (primary) hypertension; E03.9 Hypothyroidism, unspecified; G40.909 Epilepsy, unspecified, not intractable, without status epilepticus; Z87.891 Personal history of nicotine dependence
CPT/HCPCS: 73502; 81001; 99283; A9270

== ENCOUNTER 2023-06-05 15:54 | Outpatient (CLI) | payer OTHER, SELFPAY ==
--- NOTE | ~2023-06-05 | US_ITS ---
US renal BI 06/05/2023 16:27 Procedure: Realtime transabdominal ultrasound of the kidneys and bladder. Indication: Recurrent UTI Comparison: No prior studies for comparison. Findings: Renal echotexture is normal bilaterally without hydronephrosis, contour deforming mass or r enal calculus. The right kidney measures 9.3 cm and left kidney measures 9.3 cm. Bladder within norm al limits. Impression: 1: Unremarkable renal ultrasound. No stones, masses or hydronephrosis. Reviewed, dictated and finalized at location L. Impression: 1: Unremarkable renal ultrasound. No stones, masses or hydronephrosis.
== END 2023-06-05 15:55 | disposition home or self-care (01) ==
PROVIDERS: PCP Internal Medicine; Visit Provider Nurse Practitioner
DX: N39.0 Urinary tract infection, site not specified (principal)
CPT/HCPCS: 76775

== ENCOUNTER 2023-07-02 14:04 | Outpatient (CLI) | payer OTHER, SELFPAY ==
[2023-07-02 16:36] LABS: Albumin Level 4.4 g/dL (3.5-5.1); Partial Thromboplastin Time 26.9 SECONDS (22.3-36.8); Prothrombin Time 13.2 Seconds (11.1-14.7)
[2023-07-02 16:39] LABS: Basophils Absolute Auto 0.1 K/mm3 (0.0-0.1); Basophils Percent Auto 0.7 % (0.2-1.2); Eosinophils Absolute Auto 0.1 K/mm3 (0-0.3); Eosinophils Percent Auto 0.7 % (0-4.4); Hematocrit 38.5 % (37.0-47.0); Hemoglobin 12.4 g/dL (12.0-15.0); Immature Granulocyte Absolute 0.02 K/mm3 (0.00-0.031); Immature Granulocyte Percent A 0.2 % (0-0.5); Lymphocytes Percent Auto 25.9 % (18.3-44.2); Mean Corpuscular HGB Conc 32.2 g/dl (32-36); Mean Corpuscular Hemoglobin 32.8 pg (26-34); Mean Corpuscular Volume 101.9 fl (80-100); Mean Platelet Volume 9.2 fl (7.4-10.4); Monocytes Absolute Auto 0.5 K/mm3 (0.1-0.6); Monocytes Percent Auto 6.5 % (2.6-8.5); Neutrophils Absolute Auto 5.3 K/mm3 (1.3-6.7); Platelet Count Result 283 k/mm3 (150-375); Red Blood Count 3.78 M/mm3 (4.2-5.4); White Blood Count 8.1 K/mm3 (4.5-10.0)
[2023-07-02 21:15] LABS: Hemoglobin A1C 4.7 % (<5.7)
[2023-07-03 14:32] LABS: Appearance Urine Clear (Clear); Bilirubin Urine Negative (Negative); Blood Urine Negative (Negative); Color Urine Yellow (Yellow); Glucose Urine UA Negative (Negative); Ketones Urine Negative (Negative); Leukocyte Esterase Ur Negative LEU/UL (Negative); Nitrate Urine Negative (Negative); Protein Urine Negative (Negative); Specific Grav Ur 1.013 (1.001-1.035); Urobilinogen Urine 0.2 mg/dL (<2.0); pH Urine 6.5 (5.0-9.0)
[2023-07-03 14:50] LABS: Add Urine Microscopic? NO
== END 2023-07-02 14:05 | disposition home or self-care (01) ==
LOC: ANHSURGERY 14:10
PROVIDERS: PCP Internal Medicine; Visit Provider Orthopaedic Surgery
DX: M17.11 Unilateral primary osteoarthritis, right knee (principal); Z01.818 Encounter for other preprocedural examination
CPT/HCPCS: 81003; 82040; 83036; 85025; 85610; 85730; 87081

== ENCOUNTER 2023-07-03 13:55 | Outpatient (CLI) | payer OTHER, SELFPAY ==
[2023-07-03 14:52] LABS: Urine Cotinine NEGATIVE
== END 2023-07-03 13:56 | disposition home or self-care (01) ==
LOC: ANHSURGERY 13:56
PROVIDERS: PCP Internal Medicine; Visit Provider Orthopaedic Surgery
DX: M17.11 Unilateral primary osteoarthritis, right knee (principal); Z01.818 Encounter for other preprocedural examination
CPT/HCPCS: 80307; 97014; 97110; 97530; G0283

== ENCOUNTER 2023-07-09 15:14 | Outpatient (CLI) | payer OTHER, SELFPAY ==
[2023-07-09 16:23] LABS: Anion Gap 6 mmol/L (8-16); Blood Urea Nitrogen 22 mg/dL (7-17); Calcium 9.1 mg/dL (8.4-10.2); Carbon Dioxide 31 mmol/L (22-30); Chloride 100 mmol/L (98-107); Estimated Glomerular Filt Rate > 60; Glucose 87 mg/dL (65-110); Potassium 4.2 mmol/L (3.4-5.0); Sodium 137 mmol/L (137-145)
== END 2023-07-09 15:15 | disposition home or self-care (01) ==
LOC: ANHLAB 15:15
PROVIDERS: PCP Internal Medicine; Visit Provider Nurse Practitioner Family
DX: M17.11 Unilateral primary osteoarthritis, right knee (principal); E87.1 Hypo-osmolality and hyponatremia
CPT/HCPCS: 36415; 80048

== ENCOUNTER 2023-07-13 14:45 | Outpatient (RCR) | payer OTHER, SELFPAY ==
--- NOTE | 2023-06-22 14:22 | OPREHPOC ---
Outpatient Therapy Plan of Care This is a Multidisciplinary Plan of Care that may contain components documented by all disciplines (PT, OT, and ST.) PT Problem 1 PT Problem #1 Knowledge Deficit PT Goal 1 Goal 1* indep with HEP PT Problem 2 PT Problem #2 Pain PT Goal 1 Goal 1* pt report pain at worst of 7/10 for R knee PT Problem 3 PT Problem #3 Impaired Range of Motion PT Goal 1 Goal 1* R knee extension (-20') in supine 2* R knee flexion 120' in sitting PT Problem 4 PT Problem #4 Impaired Strength PT Goal 1 Goal pt able to perform 20 reps R LE: 1* sitting knee extension 2* sitting hip flexion 3* supine SLR with 2# ankle wt 4* supine hip abduction PT Problem 5 PT Problem #5 Impaired Functional Mobil PT Goal 1 Goal 1* maximum walking distance, with walker, 100' 2* improve walking pattern- step through gait pattern on R
--- NOTE | 2023-06-22 14:22 | PTOPEVAL1 ---
Assessment and note entered by Shania Antoine, PT Evaluation Information Assessment Status Evaluation Diagnosis R knee OA Onset December 2022 Subjective Information gradual increase in R knee pain, progression of OA , no falls or injury to R leg; wants to do R TKR, but need to have her knee stronger and more flexible; also going to have a L THR after knee surgery completed; ACTIVITY: use wheeled walker or regular walker for in home distances, does not go out in community; pt lives alone; POA sister, Idalmis- assists pt with bathing, dressing, home, cleaning, cooking, transportation; prior to increase in knee pain, pt was able to do home chores without help Reported Pain Level Pain Score 8: Self Report Additional Pain Score Comments pain 8-9/10 achey, sharp; limited standing, walking, activity due to knee pain; up about 10 min, then have to sit down is not using heat/ice, instructed on PRN use, 10- 15 min has a knee brace/compression sleeve, helps some; take over the counter meds for pain; Assessment PT Clinical Summary Flakita has the diagnosis of R knee OA. She is to have a R TKR when her R leg gets stronger and her knee is more flexible. Her sister was present, Idalmis, who is her power of real estate attorney and she assists her at home. Before knee pain got worse, pt was indep with in home tasks and self care. Now, sister helps her daily with all home tasks, bathing, dressing and meals. Her medical history includes L TKR, L ankle ORIF, fibromyalgia, bipolar depression. With the evaluation, she has decreased R knee ROM (-40') to 110', with decreased strength; maximum walking distance with the walker is 40', then have to stop due to pain. Skilled PT services are indicated for modalities to decrease pain; therapeutic exercises to increase R LE strength and knee extension ROM, with education for progression of HEP and gait training, to prepare for R TKR, to have better outcome post op.
--- NOTE | 2023-07-02 15:46 | PCPTNOTE ---
Patient called & Re-scheduled appointment to tomorrow, 07/03/23.
--- NOTE | 2023-07-30 11:35 | PTOPDC ---
Assessment and note entered by Shania Antoine, PT Evaluation Information Assessment PT Clinical Summary Ms. Varela has received 5 PT sessions, from June 22 to ; she reported she was going to have a TKR, then stopped attending PT. The goals were not addressed. Discharge PT services. Plan of Care PT Services Indicated No
== END 2023-07-30 14:05 | disposition home or self-care (01) ==
LOC: ANHPT 14:45
PROVIDERS: PCP Internal Medicine; Visit Provider Orthopaedic Surgery
DX: M17.11 Unilateral primary osteoarthritis, right knee (principal)
CPT/HCPCS: 97014; 97110; 97112; 97162; 97530; G0283

== ENCOUNTER 2023-07-18 11:17 | Observation (INO) | payer OTHER, SELFPAY ==
[2023-07-02 14:36] VITALS: BP 124/58; PULSE 83; RESP 16; TEMP 37.2; O2SAT 97; BMI 25.2
--- NOTE | 2023-07-02 14:57 | PC.NURSE ---
Report to the Outpatient Waiting Room, entrance under the green pavilion located off [facility], at time _9:00AM on date __07/17/23 . Planned Procedure Time: __11:00AM . Time changes happen often and if your time is changed the preop area will call you the afternoon before. - You and your visitor will be asked to self-screen and do not enter if you have any COVID symptoms. - A mask is optional within the hospital at this time. Patients may have clear liquids (water, carbonated beverages, clear teas, apple juice) until 3 hours prior to surgery with a maximum of 20 ounces. - No food from midnight until time of surgery. Take the following medications with a SIP of water the morning of surgery: ___EYE MEDS, DULOXETINE, LEVOTHYROXINE DO NOT STOP ANY OF YOUR OTHER PRESCRIPTION MEDICATIONS PRIOR TO SURGERY ?EXCEPT THE FOLLOWING Medications to discontinue per physician ___HOLD ALL MEDICATION/SUPPLEMENTS FOR 3 DAYS PRE-OP PER ANESTHESIA Date to take last dose 07/13/23 Please no make-up, nail chinese, hairspray, perfume, deodorant, or body powder the day of surgery. No jewelry (including any body piercings) or valuables the day of surgery, leave them at home. Please take a shower or bath the night before, or the morning of, surgery with an antibacterial soap. Wear comfortable, loose fitting clothing. Children are encouraged to wear pajamas. - Jewelry must be removed prior to entering the operating room. Rings and piercings that are not removed may be cut off. - The hospital will not accept responsibility for valuables. - Please leave all valuables, including medications, at home the day of surgery. If you are going home after surgery, a licensed funeral limousine driver must drive you home. - NO public transportation without another adult if you receive anesthesia. - We recommend that an adult stay with you for 24 hours following discharge. - We also recommend that you do not drive, make important decision, drink alcoholic beverages, or take any drugs that were not prescribed by your health care provider for at least 24 hours after your discharge time. Follow any additional instructions given to you from your surgeon. If you or anyone in your household have experienced Covid symptoms in the past week, please notify your surgeon or the nurse liaison at the phone number below for possible testing. Telephone instructions given to __PATIENT AND SISTER and asked if any additional questions and then verbalized understanding. Patient advised to call surgeon office or pre surgery nurse liaison [phone] if any additional questions.
[2023-07-17] VITALS (13 sets, daily range): BP systolic 93–147; BP diastolic 46–84; PULSE 70–95; RESP 14–20; TEMP 36.2–36.8; O2SAT 93–100; BMI 31.0
--- NOTE | 2023-07-17 07:16 | WPDHPUPDATE1 ---
History and Physical Update Update Date/Time: 07/17/23 07:16 History and Physical has been reviewed, including an updated exam of the patient. There are NO changes in the patient's condition. Risks, benefits, and alternatives have been discussed and questions answered. Patient agrees to proceed with procedure.
[2023-07-17] MEDS: LACTATED RINGERS 1,000 ML 30 ML IV CONT ×2 (09:45→13:45)
[2023-07-17] MEDS: ACETAMINOPHEN 500 MG TABLET 1000 MG PO ×2 (10:00→17:04)
--- NOTE | 2023-07-17 10:30 | WPDANESEPPF ---
Anes - Initial Pre Proc Eval Procedure: Operation Date: 07/17/23 11:00 Proposed Procedures p Right Total Knee Arthroplasty - Sushant Huerta MD Date/Time: 07/17/23 10:30 Surgeon: Sushant Huerta MD Pre Op Diagnosis: right knee djd Patient Data Age: 72 Gender: F Height: 1.52 m Weight: 58 kg Last Vital Signs Temp 36.6 C 07/17/23 10:00 Pulse 70 07/17/23 10:00 Resp 18 07/17/23 10:00 BP 93/46 L 07/17/23 10:00 Pulse Ox 93 07/17/23 10:00 O2 Del Method Room Air 07/17/23 10:00 Allergies Allergy/AdvReac Type Severity Reaction Status Date / Time No Known Allergies Allergy Verified 07/17/23 10:02 Home Medications Medication Instructions Recorded Confirmed Type memantine 5 mg tablet 5 mg PO QAM 09/12/22 07/09/23 History brexpiprazole 3 mg tablet (Rexulti) 3 mg PO HS 01/20/23 07/09/23 History brimonidine 0.2 % eye drops 1 drp LEFT EYE BID 01/20/23 07/09/23 History duloxetine 30 mg capsule,delayed 30 mg PO QAM 01/20/23 07/09/23 History release latanoprost 0.005 % eye drops 1 drp LEFT EYE DAILY 01/20/23 07/09/23 History levothyroxine 88 mcg tablet 88 mcg PO QAM 01/20/23 07/09/23 History timolol maleate 0.5 % eye drops 1 drp LEFT EYE BID 01/20/23 07/09/23 History trazodone 100 mg tablet 100 mg PO HS 01/20/23 07/09/23 History acetaminophen 500 mg capsule 1,000 mg PO Q6H PRN Pain 07/02/23 07/09/23 History dorzolamide 2 % eye drops 1 drp LEFT EYE BID 07/02/23 07/09/23 History ergocalciferol (vitamin D2) 1,250 50,000 unit PO WEEKLY 07/02/23 07/09/23 History mcg (50,000 unit) capsule quetiapine 50 mg tablet 50 mg PO HS 07/02/23 07/09/23 History tramadol 50 mg tablet 50 mg PO Q6H PRN pain #30 tabs 07/09/23 07/09/23 Rx chlorhexidine gluconate 4 % 1 applic topical ONCE #237 mL 07/10/23 Rx topical liquid (Hibiclens) Laboratory Tests 07/17/23 09:58 Blood Type Pending Antibody Screen Pending Patient hx anesthesia problems: none Family hx anesthesia problems: none Results Review: All pre-operative results and documents have been reviewed as part of the pre-operative evaluation. 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 Encounter for postoperative care Fibromyalgia Gastroesophageal reflux disease Hepatitis C (2010) Status post interferon. Hypertension Hypothyroidism Seizure disorder Smoking history Surgical History Surgical History History of ankle surgery (04/21/10) ORIF of left ankle fracture with subsequent hardware removal per Dr. Colon. History of arthroplasty of left knee With revision. History of total knee arthroplasty History of tubal ligation (1975) Family History Family History Mother Hypertension Social History Social History Social History: The patient lives in [place]. She is disabled. Former smoker. History of alcohol abuse, she went through alcoholics anonymous and has not drank for quite some time though she could not further quantify. No drug use. Idalmis Sheppard, sister, is her emergency contact. Code status: Full code. Smoking packs per day: 1 Smoking cigarettes per day: 20.0 Years smoked: 50 Smoking pack-years: 50.00 Smoking status: Former smoker Tobacco type: cigarettes Second hand tobacco smoke exposure: No Smoking end date: 04/14/21 Alcohol intake: former Drinks per week: 24 Alcohol use details: FORMER HEAVY DRINKER, QUIT DRINKING ~5 YEARS AGO Substance use: never Substance use type: does not use Lack of Transportation: No Lack of Food: Never True Current Housing: I Have Housing Concerned About Future Housing: No Difficulty Paying Gas/Electric Bills: No
[2023-07-17] MEDS: ceFAZolin 2 GM/D5W 50 ML 2 GM/50 ML BAG IVPB ×2 (11:09→18:58)
[2023-07-17] MEDS: TRANEXAMIC ACID 1,000 MG/10 ML AMPUL 1000 MG IV PUSH (12:59)
--- NOTE | 2023-07-17 13:37 | W.PM.PROC2 ---
Procedure Note - Detailed Date of Procedure 07/17/23 Pre-op Diagnosis right knee djd Post-op Diagnosis Same Procedure Performed R TKA Surgeon Sushant Huerta MD Anesthesia General Description of Procedure THE RIGHT KNEE WAS PREPPED AND DRAPED IN THE STERILE FASHION. THERE WAS A 30 DEGREE FLEXION CONTRACTURE. A MIDLINE SKIN INCISION WAS MADE. A MEDIAL PARAPATELLAR ARTHROTOMY WAS MADE. THE PATELLA WAS EVERTED. THERE WAS TRICOMPARTMENT DJD. THERE WAS MINIMAL PATELLA DJD. AN INTRAMEDULLARY ANTONETTE WAS PLACED IN THE FEMUR. A DISTAL FEMORAL CUT WAS MADE IN 5 DEGREES OF VALGUS REMOVING APPROXIMATELY 12 MM OF BONE FROM THE DISTAL FEMUR. THE FEMUR WAS SIZED TO 62.5. A 62.5 FEMORAL CUTTING BLOCK WAS PLACED IN 3 DEGREES OF EXTERNAL ROTATION AND IN ALIGNMENT WITH GALDINO'S LINE AND THE TRANSEPICONDYLAR AXIS. ANTERIOR POSTERIOR AND CHAMFER CUTS WERE MADE. THE CUTS WERE EXCELLENT. NEXT AN INTRAMEDULLARY CUTTING GUIDE WAS PLACED IN THE TIBIA. A TRANS TIBIAL CUT WAS MADE ALONG THE LONG AXIS OF THE TIBIA. APPROXIMATELY 10 MM OF BONE WAS REMOVED FROM THE HIGH SIDE OF THE TIBIA. THE TIBIA WAS THEN PLANED TO A SMOOTH SURFACE. POSTERIOR FEMORAL OSTEOPHYTES WERE REMOVED FROM THE FEMORAL CONDYLES. A 67 TIBIAL TRIAL WAS PLACED IN ALIGNMENT WITH THE 1/3 MEDIAL ASPECT OF THE TIBIAL TUBERCLE. THEN A 62.5 FEMORAL TRIAL COMPONENT WAS PLACED. BOTH HAD EXCELLENT FITS. EVENTUALLY A 12 MM POLYETHYLENE TRIAL COMPONENT WAS PLACED. THE KNEE WAS TAKEN THROUGH A RANGE OF MOTION. THE KNEE CAME OUT TO FULL EXTENSION. THERE WAS NO ABNORMAL TILT TO THE PATELLA. THERE WAS GOOD A/P AND VARUS/VALGUS STABILITY. THERE WAS NO EXCESSIVE ROLL BACK WITH FLEXION. THE TRIAL COMPONENTS WERE REMOVED. THEN A 62.5 FEMORAL COMPONENT AND 67 TIBIAL COMPONENT WITH A 12 MM POLYETHYLENE COMPONENT WERE CEMENTED INTO PLACE. ONCE THE CEMENT WAS HARD THE KNEE WAS TAKEN THROUGH A ROM AGAIN AND FOUND TO BE STABLE WITH NO PATELLA TILT NO EXCESSIVE ROLL BACK WITH FLEXION AND GOOD STABILITY WITH COMPLETE AND FULL EXTENSION. THE KNEE WAS IRRIGATED WITH STERILE BETADINE AND WATER FOR ABOUT 3 MINUTES. THE BLEEDERS WERE CAUTERIZED. THE ARTHROTOMY WAS REPAIRED WITH NUMBER 1 VICRYL. THE SUB CUTANEOUS LAYER WITH 2-0 VICRYL AND THE SKIN WITH JUAN. THE WOUND WAS WASHED AND A STERILE DRESSING WAS APPLIED. PATIENT WAS EXTUBATED. Estimated Blood Loss -150.0 Pathology None sent Complications No immediate complications Condition Stable Disposition PACU
[2023-07-17] MEDS: fentaNYL CITRATE INJ (*CRX) 100 MCG/2 ML VIAL 25 MCG IV PUSH ×5 (14:04→14:45)
[2023-07-17] MEDS: ONDANSETRON INJ 4 MG/2 ML VIAL IV PUSH (14:19)
--- NOTE | 2023-07-17 15:14 | ADMGEN ---
This patient, Krys Varela, was admitted to 3 [facility] Room 324-01. Patient/family oriented to hospital policies and general routines including ID bracelet, bed and alarms, visiting hours, pain management, procedures, bathroom and other care routines, personal items, smoking policy, room service/diet, and visiting hours. Information on how to activate the Rapid Response Team has been discussed. Patient/Family are encouraged to report perceived risks to care and to ask questions if they do not understand what they are told or what they should do.
[2023-07-17] MEDS: KETOROLAC 15 MG/ML VIAL (*BKC) IV PUSH ×2 (17:02→23:35)
[2023-07-17] MEDS: SENNA/DOCUSATE SODIUM TABLET 2 TAB PO (17:04)
[2023-07-17] MEDS: SODIUM CHLORIDE 0.9% IV 1,000 ML 125 ML IV CONT (17:12)
--- NOTE | 2023-07-17 19:44 | PC.NURSE ---
This pt received from PACU. Pt has previous partial contraction to right knee. Deanna stated she should be having significant pain; pt states no pain in surgical site but pain to left leg. Pt unable to keep right knee straight despite repeated instructions. Pt also rocking back and forth in the bed. Pt states this is normal . Pt repeatedly stating need to urinate. Bladder scanned patient who had 767 in bladder. Called MD who stated to place pollard, and consult hospitalist for medical management as pt has significant medical history. I did not place the patient helper to the bed as I thought pt might be at risk for injury. Pt concerned we lost her teeth. Call placed to PACU; teeth in surgery and one of their RNs returned them to pt room.
[2023-07-17] MEDS: traZODone HCL 50 MG TABLET 100 MG PO (21:25)
[2023-07-17] MEDS: FAMOTIDINE 20 MG TABLET PO (21:25)
[2023-07-17] MEDS: TIMOLOL MALEATE 0.5% OP SOLN 5 ML BOTTLE 1 DROP LEFT EYE (21:25)
[2023-07-17] MEDS: DORZOLAMIDE HCL 2% OPHTH DROPS 1 DROP LEFT EYE (21:25)
[2023-07-17] MEDS: ASPIRIN 325 MG ENTERIC TABLET PO (21:25)
[2023-07-17] MEDS: QUEtiapine FUMARATE 25 MG TABLET 50 MG PO (21:25)
[2023-07-17] MEDS: LATANOPROST 0.005% OP SOLN 2.5 ML BTL 1 DROP LEFT EYE (21:25)
[2023-07-17] MEDS: BRIMONIDINE TARTRATE 0.2% OP SOLN 5 ML BTL 1 DROP LEFT EYE (21:25)
[2023-07-18] VITALS (8 sets, daily range): BP systolic 98–155; BP diastolic 39–72; PULSE 65–80; RESP 16–20; TEMP 35.7–37.2; O2SAT 95–100
--- NOTE | ~2023-07-18 | XR_ITS ---
EXAMINATION: [id number] DATE: 07/17/2023 13:59 INDICATION: Postoperative evaluation following right total knee arthroplasty. TECHNIQUE: Anteroposterior and lateral views of the right knee were obtained. COMPARISON: 07/09/2023 FINDINGS: Right total knee arthroplasty without patellar resurfacing appears well seated and in near anatomic a lignment. No fractures identified. Anterior skin terese and expected postoperative subcutaneous, in tramedullary and intra-articular gas. IMPRESSION: 1. Right total knee arthroplasty, negative for postoperative purposes. Reviewed, dictated and finalized at location A.
[2023-07-18] MEDS: ceFAZolin 2 GM/D5W 50 ML 2 GM/50 ML BAG IVPB ×2 (02:48→10:12)
[2023-07-18] MEDS: LEVOTHYROXINE SODIUM 88 MCG TABLET PO (05:36)
[2023-07-18] MEDS: KETOROLAC 15 MG/ML VIAL (*BKC) IV PUSH ×3 (05:36→16:59)
[2023-07-18 06:08] LABS: Basophils Absolute Auto 0.1 K/mm3 (0.0-0.1); Basophils Percent Auto 0.4 % (0.2-1.2); Eosinophils Percent Auto 0.1 % (0-4.4); Hemoglobin 9.9 g/dL (12.0-15.0); Immature Granulocyte Absolute 0.05 K/mm3 (0.00-0.031); Immature Granulocyte Percent A 0.4 % (0-0.5); Lymphocytes Absolute Auto 2.55 K/mm3 (0.9-3.2); Lymphocytes Percent Auto 19.8 % (18.3-44.2); Mean Corpuscular HGB Conc 31.9 g/dl (32-36); Mean Corpuscular Hemoglobin 31.9 pg (26-34); Mean Platelet Volume 8.8 fl (7.4-10.4); Monocytes Absolute Auto 1.2 K/mm3 (0.1-0.6); Monocytes Percent Auto 9.5 % (2.6-8.5); Neutrophils Percent Auto 69.8 % (45.5-73.1); Platelet Count Result 254 k/mm3 (150-375); Red Cell Distribution Width 13.9 % (11.5-14.5); White Blood Count 12.9 K/mm3 (4.5-10.0)
[2023-07-18 06:20] LABS: Anion Gap 4 mmol/L (8-16); Blood Urea Nitrogen 16 mg/dL (7-17); Calcium 8.1 mg/dL (8.4-10.2); Carbon Dioxide 26 mmol/L (22-30); Chloride 106 mmol/L (98-107); Estimated Glomerular Filt Rate > 60; Glucose 99 mg/dL (65-110); Potassium 3.9 mmol/L (3.4-5.0); Sodium 136 mmol/L (137-145)
[2023-07-18] MEDS: polyethylene glycoL 3350 17 GM POWD.PACK PO (09:28)
[2023-07-18] MEDS: DULoxetine HCL 30 MG CAPSULE.DR PO (09:30)
[2023-07-18] MEDS: FAMOTIDINE 20 MG TABLET PO ×2 (09:30→20:54)
[2023-07-18] MEDS: SENNA/DOCUSATE SODIUM TABLET 2 TAB PO (09:30)
[2023-07-18] MEDS: MEMANTINE 5 MG TABLET PO (09:32)
[2023-07-18] MEDS: ASPIRIN 325 MG ENTERIC TABLET PO ×2 (09:32→20:54)
[2023-07-18] MEDS: TIMOLOL MALEATE 0.5% OP SOLN 5 ML BOTTLE 1 DROP LEFT EYE ×2 (09:33→20:55)
[2023-07-18] MEDS: BRIMONIDINE TARTRATE 0.2% OP SOLN 5 ML BTL 1 DROP LEFT EYE ×2 (09:36→20:54)
[2023-07-18] MEDS: DORZOLAMIDE HCL 2% OPHTH DROPS 1 DROP LEFT EYE ×2 (09:37→20:54)
--- NOTE | 2023-07-18 09:37 | P.PNAN_ITS ---
Anes - Prog Note Post-Op Date/Time: 07/18/23 09:37 Cardiovascular status: normal Respiratory status: normal Airway patency: baseline Mental status: baseline Post-Op hydration status: normal Vital Signs: Last Vital Signs Temp 97.0 F L 07/18/23 08:00 Pulse 66 07/18/23 08:00 Resp 16 07/18/23 08:00 BP 112/56 L 07/18/23 08:00 Pulse Ox 95 07/18/23 08:39 O2 Del Method Room Air 07/18/23 08:39 O2 Flow Rate 8 07/17/23 14:00 Pain Score (VAS): 8 I/O: Intake & Output 07/17/23 07/18/23 07/18/23 23:59 07:59 15:59 Intake Total 50 1150 Output Total 1225 Balance 50 -75 Laboratory Tests 07/18/23 05:55 07/18/23 05:55 07/17/23 07/18/23 10:21 05:55 WBC 12.9 H RBC 3.10 L Hgb 9.9 L Hct 31.0 L MCV 100.0 MCH 31.9 MCHC 31.9 L RDW 13.9 Plt Count 254 MPV 8.8 Immature Gran % (Auto) 0.4 Neut % (Auto) 69.8 Lymph % (Auto) 19.8 [place] % (Auto) 9.5 H Eos % (Auto) 0.1 Baso % (Auto) 0.4 Lymph # (Auto) 2.55 [place] # (Auto) 1.2 H Eos # (Auto) 0.0 Baso # (Auto) 0.1 Abs Immat Gran (auto) 0.05 H Absolute Neuts (auto) 9.0 H Absolute Nucleated RBC 0.0 Nucleated RBC % 0.0 Sodium 136 L Potassium 3.9 Chloride 106 Carbon Dioxide 26 Anion Gap 4 L BUN 16 Creatinine 0.70 Estim Creat Clear Calc Not Reportable Estimated GFR > 60 Glucose 99 Calcium 8.1 L Blood Type A Positive Antibody Screen Negative Post-procedural complaints: none Patient Feedback: Patient satisfied with anesthetic care.
--- NOTE | 2023-07-18 10:52 | PM.PNORT ---
Progress Note: A&P Assessment and Plan (1) History of total knee arthroplasty: Code(s): Z96.659 - Presence of unspecified artificial knee joint Status: Acute Assessment and Plan: POD 1 DOING WELL. SHE IS HAVING SLOW PROGRESS WITH PT. SHE WILL MOST LIKELY REQUIRE SNF TYPE OF REHAB. WE WILL REEVALUATE HER LATER TODAY FOR POSSIBLE DC HOME TODAY. (2) Right knee DJD: Qualifiers: Osteoarthritis type: primary Qualified Code(s): M17.11 - Unilateral primary osteoarthritis, right knee Code(s): M17.11 - Unilateral primary osteoarthritis, right knee Status: Acute Subjective Subjective Date/Time Seen: 07/18/23 10:52 Interval history: POD 1 DOING BETTER. SHE HAD SOME AGITATION YESTERDAY CONSISTENT WITH HER PMHX. SHE HAS NO KNEE PAIN. SHE HAS MINIMAL PAIN TODAY. SHE HAS MUCH LESS AGITATION WELL Exam Extrem: Other: VSS AFEBRILE DRESSING DRY NV INTACT NEG HOMANS SIGN CALF SOFT NON TENDER. Objective Data Vital Signs Vital Signs: Vital Signs - 24 hr 07/17/23 13:45 07/17/23 13:47 07/17/23 14:00 Temperature 36.8 C Pulse Rate 88 87 89 Respiratory Rate 18 14 18 Blood Pressure 138/66 142/84 H 147/68 H Pulse Oximetry 100 100 100 Oxygen Delivery Simple Face Mask Simple Face Mask Simple Face Mask Oxygen Flow Rate 8 8 8 07/17/23 14:15 07/17/23 14:30 07/17/23 14:40 Temperature 36.8 C Pulse Rate 87 88 87 Respiratory Rate 14 20 20 Blood Pressure 137/63 127/71 103/69 Pulse Oximetry 100 98 100 Oxygen Delivery Room Air Room Air Room Air Oxygen Flow Rate 07/17/23 14:55 07/17/23 15:20 07/17/23 15:35 Temperature 36.6 C 36.4 C L Pulse Rate 86 89 95 Respiratory Rate 18 14 14 Blood Pressure 127/67 112/62 119/74 Pulse Oximetry 99 100 100 Oxygen Delivery Room Air Oxygen Flow Rate 07/17/23 16:05 07/17/23 20:00 07/17/23 20:49 Temperature 36.6 C 36.2 C L Pulse Rate 95 95 90 Respiratory Rate 14 14 16 Blood Pressure 99/76 L 128/57 L Pulse Oximetry 100 100 98 Oxygen Delivery Room Air Oxygen Flow Rate 07/18/23 00:49 10/04/23 04:49 07/18/23 08:00 Temperature 36.0 C L 35.7 C L 36.1 C L Pulse Rate 66 65 66 Respiratory Rate 20 16 16 Blood Pressure 98/39 L 101/50 L 112/56 L Pulse Oximetry 97 97 98 Oxygen Delivery Oxygen Flow Rate 07/18/23 08:39 07/18/23 09:23 07/18/23 09:52 Temperature Pulse Rate Respiratory Rate Blood Pressure Pulse Oximetry 95 Oxygen Delivery Room Air Room Air Room Air Oxygen Flow Rate Intake/Output Intake/Output: Intake & Output 07/15/23 07/16/23 07/17/23 07/18/23 23:59 23:59 23:59 23:59 Intake Total 525 1150 Output Total 1225 Balance 525 -75 Meds/Results Medications: Active Medications Generic Name Dose Route Start Last Admin Trade Name Freq PRN Reason Stop Dose Admin Acetaminophen 1,000 mg 07/17/23 15:04 07/17/23 17:04 Acetaminophen 500 Mg Tablet PO 1,000 mg Q6H PRN Administration Pain 1-3 Aspirin 325 mg 07/17/23 21:00 07/18/23 09:32 Aspirin 325 Mg Enteric Tablet PO 325 mg Q12HR ORIN Administration Brimonidine Tartrate 1 drop 07/17/23 21:00 07/18/23 09:36 Brimonidine Tartrate 0.2% Op Soln 5 Ml Btl LEFT EYE 1 drop Q12HR ORIN Administration Diazepam 5 mg 07/17/23 15:04 Diazepam (*Crx) 5 Mg Tablet PO Q8H PRN Spasms Diphenhydramine HCl 25 mg 07/17/23 15:04 Diphenhydramine Hcl Inj 50 Mg/Ml Vial IV PUSH Q6H PRN Itching Dorzolamide HCl 1 drop 07/17/23 21:00 07/18/23 09:37 Dorzolamide Hcl 2% Ophth Drops LEFT EYE 1 drop Q12HR ORIN Administration Duloxetine HCl 30 mg 07/18/23 09:00 07/18/23 09:30 Duloxetine Hcl 30 Mg Capsule.Dr PO 30 mg QAM ORIN Administration Ergocalciferol 50,000 units 07/24/23 09:00 Ergocalciferol 50,000 Units Capsule PO WEEKLY [facility] Famotidine 20 mg 07/17/23 21:00 07/18/23 09:30 Famotidine 20 Mg Tablet PO 20 mg Q12HR ORIN Administration
--- NOTE | 2023-07-18 12:10 | PM.IMCN ---
Assessment and Plan Assessment and plan (1) History of total knee arthroplasty: Code(s): Z96.659 - Presence of unspecified artificial knee joint Status: Acute Assessment and Plan: POD 1 DOING WELL. SHE IS HAVING SLOW PROGRESS WITH PT. SHE WILL MOST LIKELY REQUIRE SNF TYPE OF REHAB. ORTHO WILL REEVALUATE HER LATER TODAY FOR POSSIBLE DC HOME TODAY. (2) Right knee DJD: Qualifiers: Osteoarthritis type: primary Qualified Code(s): M17.11 - Unilateral primary osteoarthritis, right knee Code(s): M17.11 - Unilateral primary osteoarthritis, right knee Status: Acute Assessment and Plan: new total knee arthroplasty POD 1 (3) Bipolar disorder: Code(s): F31.9 - Bipolar disorder, unspecified Status: Chronic Assessment and Plan: Agitation after anesthesia, calm and cooperative now. Continue home medications. Plan PT/OT Defer to Ortho regarding discharge planning SNF likely HPI Data of Consult Consult date: 07/18/23 Requesting Physician: Sushant Huerta MD Primary Care Provider: Gian Hilario MD Consult Narrative Narrative: Krys Varela is a 72 year old female admitted for right knee replacement due to DJD. Patient has past medical history including dementia, Bipolar disorder, fibromyalgia, HTN, GERD, seizure, Hepatitis C, hypothyroidism and heavy tobacco abuse. Overnight patient had agitation after anesthesia. She was slow to work with therapy. Patient reports that she was in a lot more pain than she expected, however, today it is feeling more manageable. Beside right knee pain, patient denies any other complaints at time of evaluation. She is seen eating lunch independently. 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 Encounter for postoperative care Fibromyalgia Gastroesophageal reflux disease Hepatitis C (2010) Status post interferon. Hypertension Hypothyroidism Seizure disorder Smoking history Surgical History Surgical History History of ankle surgery (04/21/10) ORIF of left ankle fracture with subsequent hardware removal per Dr. Colon. History of arthroplasty of left knee With revision. History of total knee arthroplasty History of tubal ligation (1975) Family History Family History Mother Hypertension Social History Social History Social History: The patient lives in [place]. She is disabled. Former smoker. History of alcohol abuse, she went through alcoholics anonymous and has not drank for quite some time though she could not further quantify. No drug use. Idalmis Sheppard, sister, is her emergency contact. Code status: Full code. Smoking packs per day: 1 Smoking cigarettes per day: 20.0 Years smoked: 50 Smoking pack-years: 50.00 Smoking status: Former smoker Tobacco type: cigarettes Second hand tobacco smoke exposure: No Smoking end date: 04/14/21 Alcohol intake: former Drinks per week: 24 Alcohol use details: FORMER HEAVY DRINKER, QUIT DRINKING ~5 YEARS AGO Substance use: never Substance use type: does not use Lack of Transportation: No Lack of Food: Never True Current Housing: I Have Housing Concerned About Future Housing: No Difficulty Paying Gas/Electric Bills: No Difficulty Paying for Meds: No Currently Unemployed: No Education: Grade School Difficulty w/ Childcare or Family Care: No Living arrangements: with family Additional living arrangements comments: [facility] Occupation/Education: other Additional occupat
[2023-07-18] MEDS: QUEtiapine FUMARATE 25 MG TABLET 50 MG PO (20:55)
[2023-07-18] MEDS: LATANOPROST 0.005% OP SOLN 2.5 ML BTL 1 DROP LEFT EYE (20:55)
[2023-07-18] MEDS: traZODone HCL 50 MG TABLET 100 MG PO (20:55)
[2023-07-18] MEDS: diazePAM (*CRX) 5 MG TABLET PO (21:41)
[2023-07-19 00:50] VITALS: BP 136/46; PULSE 76; RESP 18; TEMP 36.4; O2SAT 97
[2023-07-19] MEDS: oxyCODONE/ACETAMINOPHEN (*CRX) 5-325 MG TABLET 1 TABLET PO ×3 (01:07→10:39)
[2023-07-19 05:00] VITALS: BP 130/60; PULSE 76; RESP 18; TEMP 35.9; O2SAT 98
[2023-07-19] MEDS: LEVOTHYROXINE SODIUM 88 MCG TABLET PO (05:30)
[2023-07-19 06:15] VITALS: TEMP 35.9
[2023-07-19 06:27] LABS: Basophils Percent Auto 0.4 % (0.2-1.2); Eosinophils Percent Auto 0.1 % (0-4.4); Hemoglobin 10.2 g/dL (12.0-15.0); Immature Granulocyte Absolute 0.02 K/mm3 (0.00-0.031); Immature Granulocyte Percent A 0.2 % (0-0.5); Lymphocytes Absolute Auto 2.46 K/mm3 (0.9-3.2); Lymphocytes Percent Auto 27.1 % (18.3-44.2); Mean Corpuscular HGB Conc 31.9 g/dl (32-36); Mean Corpuscular Volume 100.3 fl (80-100); Mean Platelet Volume 9.2 fl (7.4-10.4); Monocytes Absolute Auto 1.5 K/mm3 (0.1-0.6); Monocytes Percent Auto 16.1 % (2.6-8.5); Neutrophils Absolute Auto 5.1 K/mm3 (1.3-6.7); Neutrophils Percent Auto 56.1 % (45.5-73.1); Platelet Count Result 244 k/mm3 (150-375); Red Blood Count 3.19 M/mm3 (4.2-5.4); Red Cell Distribution Width 14.2 % (11.5-14.5); White Blood Count 9.1 K/mm3 (4.5-10.0)
[2023-07-19 06:38] LABS: Alanine Aminotransferase 14 U/L (6-35); Albumin Level 3.5 g/dL (3.5-5.1); Alkaline Phosphatase 69 U/L (38-126); Anion Gap 5 mmol/L (8-16); Aspartate Amino Transferase 24 U/L (14-36); Bilirubin,Total 0.5 mg/dL (0.2-1.3); Blood Urea Nitrogen 16 mg/dL (7-17); Calcium 8.1 mg/dL (8.4-10.2); Carbon Dioxide 25 mmol/L (22-30); Chloride 104 mmol/L (98-107); Estimated Glomerular Filt Rate > 60; Glucose 104 mg/dL (65-110); Potassium 3.6 mmol/L (3.4-5.0); Sodium 134 mmol/L (137-145)
[2023-07-19] MEDS: ASPIRIN 325 MG ENTERIC TABLET PO (09:10)
[2023-07-19] MEDS: SENNA/DOCUSATE SODIUM TABLET 2 TAB PO (09:11)
[2023-07-19] MEDS: DULoxetine HCL 30 MG CAPSULE.DR PO (09:11)
[2023-07-19] MEDS: MEMANTINE 5 MG TABLET PO (09:12)
[2023-07-19] MEDS: polyethylene glycoL 3350 17 GM POWD.PACK PO (09:12)
[2023-07-19] MEDS: FAMOTIDINE 20 MG TABLET PO (09:12)
[2023-07-19] MEDS: BRIMONIDINE TARTRATE 0.2% OP SOLN 5 ML BTL 1 DROP LEFT EYE (09:13)
[2023-07-19] MEDS: TIMOLOL MALEATE 0.5% OP SOLN 5 ML BOTTLE 1 DROP LEFT EYE (09:13)
[2023-07-19] MEDS: DORZOLAMIDE HCL 2% OPHTH DROPS 1 DROP LEFT EYE (09:13)
--- NOTE | 2023-07-19 09:23 | PM.PNORT ---
Progress Note: A&P Assessment and Plan (1) S/P total knee arthroplasty: Qualifiers: Laterality: right Qualified Code(s): Z96.651 - Presence of right artificial knee joint Code(s): Z96.659 - Presence of unspecified artificial knee joint Status: Acute Assessment and Plan: POD #2: Right TKA Continue PT/OT. WBAT. Walker. HIGH FALL RISK. Continue pain control. Ice Knee. Protect skin. DVT prophylaxis with Aspirin. SCDs. Incentive Spirometry Use reviewed. Reinforced need for knee to be straight while in bed. Pillows from calf down only. Monitor Dressing. Change prior to discharge. Bowel Regimen. Dispo: Home with Home Health vs. SNF pending improved progress with PT/OT (2) Postoperative urinary retention: Code(s): N99.89 - Other postprocedural complications and disorders of genitourinary system; R33.8 - Other retention of urine Status: Acute Assessment and Plan: Patient had urinary retention yesterday. Pollard catheter placed. Plan for void trial today. If no success, will consult urology. Plan Reviewed postoperative vitals, labs, assessment, noncompliance with PT and pollard catheter needs with Dr. Huerta. Agrees with current plan as indicated above. Subjective Subjective Date/Time Seen: 07/19/23 09:23 Post Op day: 2 Principal diagnosis: Right TKA Interval history: POD #2: Right TKA Difficulty with PT/OT. Not following commands. Refusing to do stairs and fully participate in PT. Pollard catheter in place. Review of Systems Review of Systems: All systems reviewed & are unremarkable except as noted in HPI and below Constitutional: Constitutional: Denies fever(s) and Denies headache(s) ENT: Denies headache(s) Cardiovascular: Cardiovascular: Denies chest pain, Denies diaphoresis, Denies palpitations and Denies dyspnea Respiratory: Respiratory: Denies dyspnea Gastrointestinal: Gastrointestinal: Denies abdominal pain, Denies constipation, Denies nausea and Denies vomiting Genitourinary: Genitourinary: Reports nocturia and Denies dysuria Musculoskeletal: Musculoskeletal: Reports arthralgias (Right Knee ) and Reports joint swelling (Right Knee ) Neurologic: Denies headache(s) Endocrine: Endocrine: Denies palpitations Exam Const: General: comfortable and no acute distress Resp: Effort & Inspection: normal respiratory effort Cardio: Rate: regular rate Rhythm: regular rhythm GI: GI Palp: Yes Soft to palpation, No Tenderness to palpation present (GI) and No Guarding due to palpation present (GI) Skin: General skin exam: wounds noted Wounds: wounds noted Other: Incision c/d/i. No surrounding redness/warmth. No hematoma. Mild ecchymosis. No wound dehiscence Neuro: Cognition (Neuro): normal cognition Other: NV intact aside from block. Moves toes. Sensation intact to light touch. +ankle dorsiflexion/plantarflexion. Extrem: Right lower extremity: normal to inspection, knee Details: tenderness (diffuse, mild ) Location: of the patella, swelling (diffuse, consistent with surgical intervention ), abnormal ROM Details: pain with active ROM during, pain with passive ROM during and with range as follows (limited due to recent surgical intervention ); able to extend lower leg actively and ecchymosis (mild ), lower leg (Negative Marta's Sign ) Details: normal to inspection; no erythema and no tenderness, ankle (+ankle dorsiflexion/plantarflexion ) Details: normal to inspection, no edema and normal ROM; no tenderness, no swelling and no ecchymosis and foot Details: normal capillary refill, normal to inspection, vascular exam Details: dorsalis pedis pulse present and motor-sensory exam Details: light-touch normal; no tenderness Left lower extremity: normal to inspection Psych: Mental Status: mental status grossly normal Objective Data Vital Signs Vital Signs: Vital Signs - 24 hr 07/18/23 09:52 07/18/23 12:00 07/18/23 16:49 Temperature 36.0 C L 37.2 C
--- NOTE | 2023-07-19 10:37 | PM.IMPN ---
Progress Note: A&P Assessment and Plan (1) History of total knee arthroplasty: Code(s): Z96.659 - Presence of unspecified artificial knee joint Status: Acute Assessment and Plan: POD 2, not participating PT OT appropriately refusing to do stairs. Plan for discharge will be health versus SNF. (2) Right knee DJD: Qualifiers: Osteoarthritis type: primary Qualified Code(s): M17.11 - Unilateral primary osteoarthritis, right knee Code(s): M17.11 - Unilateral primary osteoarthritis, right knee Status: Acute Assessment and Plan: new right total knee arthroplasty POD 2 (3) Bipolar disorder: Code(s): F31.9 - Bipolar disorder, unspecified Status: Chronic Assessment and Plan: Patient refusing to cooperate with PT OT refusing to work on doing stairs. Plan PT/OT Defer to Ortho regarding discharge planning SNF likely Time Spent With Patient Time with patient: 25 - 35 minutes Subjective Date/time seen: 07/19/23 10:37 Interval history: Patient refusing to participate with PT/OT appropriately and just acting out frequently. Orthopedics not comfortable with discharge for this reason. Review of Systems Review of Systems: All systems reviewed & are unremarkable except as noted in HPI and below Exam Narrative: GENERAL: Generally well appearing, alert and oriented, in no apparent distress. HEENT: Pupils are equally round and briskly reactive to light. Extraocular muscles are intact. Oral mucous membranes are moist without lesions. NECK: The patient has no noted JVD. No adenopathy is appreciated. CHEST/LUNGS: Lungs are clear bilaterally without rhonchi, rales, or wheezes. HEART: The patient has a regular rate and rhythm. No murmurs, rubs, or gallops are appreciated. Distal pulses are 2+. ABDOMEN: The patient?s abdomen is soft, nontender, and nondistended. Bowel sounds are positive. EXTREMITIES: The patient has no peripheral edema. Right knee bandaged and covered with ice machine for pain control. SKIN: The patient?s skin is warm and dry, without rashes or lesions. PSYCHIATRIC: The patient has normal mental status and has an appropriate affect. NEUROLOGIC: There are no gross deficits to the cranial nerves. Patient moves all extremities well, 5/5 strength Objective Data Vital Signs Vital Signs: Vital Signs - 24 hr 07/18/23 12:00 07/18/23 16:49 07/18/23 19:47 Temperature 36.0 C L 37.2 C Pulse Rate 79 79 Respiratory Rate 16 16 Blood Pressure 120/72 115/58 L Pulse Oximetry 100 100 100 Oxygen Delivery Room Air 07/18/23 20:15 07/19/23 00:50 07/19/23 05:00 Temperature 35.9 C L 36.4 C 35.9 C L Pulse Rate 80 76 76 Respiratory Rate 18 18 18 Blood Pressure 155/63 H 136/46 L 130/60 Pulse Oximetry 99 97 98 Oxygen Delivery 07/19/23 06:15 Temperature 35.9 C L Pulse Rate Respiratory Rate Blood Pressure Pulse Oximetry Oxygen Delivery Intake/Output Intake/Output: Intake & Output 07/16/23 07/17/23 07/18/23 07/19/23 23:59 23:59 23:59 23:59 Intake Total 525 1436 350 Output Total 1775 1350 Balance 525 -566 -1000 Meds/Results Medications: Active Medications Generic Name Dose Route Start Last Admin Trade Name Freq PRN Reason Stop Dose Admin Acetaminophen 1,000 mg 07/17/23 15:04 07/17/23 17:04 Acetaminophen 500 Mg Tablet PO 1,000 mg Q6H PRN Administration Pain 1-3 Aspirin 325 mg 07/17/23 21:00 07/19/23 09:10 Aspirin 325 Mg Enteric Tablet PO 325 mg Q12HR ORIN Administration Brimonidine Tartrate 1 drop 07/17/23 21:00 07/19/23 09:13 Brimonidine Tartrate 0.2% Op Soln 5 Ml Btl LEFT EYE 1 drop Q12HR ORIN Administration Diazepam 5 mg 07/17/23 15:04 07/18/23 21:41 Diazepam (*Crx) 5 Mg Tablet PO 5 mg Q8H PRN Administration Spasms Diphenhydramine HCl 25 mg 07/17/23 15:04 Diphenhydramine Hcl Inj 50 Mg/Ml Vial IV PUSH Q6H PRN Itching Dorzolamide HCl 1 d
[2023-07-19 15:00] VITALS: BP 128/64; PULSE 81; RESP 16; TEMP 36.3; O2SAT 99
--- NOTE | 2023-07-19 16:33 | PM.DS ---
DS: Admitting Diagnosis Discharge Date 07/19/23 Admitting Diagnosis RIGHT KNEE DJD DS: Discharge Diagnosis Discharge Diagnosis (1) S/P total knee arthroplasty: Qualifiers: Laterality: right Qualified Code(s): Z96.651 - Presence of right artificial knee joint Code(s): Z96.659 - Presence of unspecified artificial knee joint Status: Acute Plan POD 2 DOING WELL WITH PT. SHE WILL BE DISCHARGED HOME UNDER THE CARE OF HER SISTER. SHE WILL F/U IN 3 WEEKS DS: Summary Hospital Course Reason for hospitalization: RIGHT TKA Hospital Course: PATIENT WAS ADMITTED S/P TOTAL KNEE ARTHROPLASTY FOR POSTOPERATIVE MEDICAL MANAGEMENT, PAIN CONTROL AND MOBILIZATION WITH PHYSICAL AND OCCUPATIONAL THERAPY. THE PATIENT PROGRESSED WELL WITH PT/OT. LABS AND VITALS REMAINED STABLE AND PAIN WELL CONTROLLED. THE PATIENT HAS BEEN CLEARED TO BE DISCHARGED HOME. FOLLOW UP APPOINTMENT SCHEDULED. DISCHARGE INSTRUCTIONS DISCUSSED AT LENGTH WITH THE PATIENT. MEDICATIONS REVIEWED. Status at Discharge Cognitive/behavioral status at discharge: STABLE Time Spent with Patient Time attestation: Total time spent providing and/or coordinating discharge services: Exam Narrative: VSS AFEBRILE DRESSING DRY NV INTACT NEG HOMANS SIGN CALF SOFT NON TENDER NEG HOMANS SIGN, ABLET TO FULLY EXTEND RIGHT KNEE DS: Data Data Completed and Pending Labs on day of discharge: Labs from last 24 hours 07/19/23 06:08 WBC 9.1 RBC 3.19 L Hgb 10.2 L Hct 32.0 L MCV 100.3 H MCH 32.0 MCHC 31.9 L RDW 14.2 Plt Count 244 MPV 9.2 Immature Gran % (Auto) 0.2 Neut % (Auto) 56.1 Lymph % (Auto) 27.1 [place] % (Auto) 16.1 H Eos % (Auto) 0.1 Baso % (Auto) 0.4 Lymph # (Auto) 2.46 [place] # (Auto) 1.5 H Eos # (Auto) 0.0 Baso # (Auto) 0.0 Abs Immat Gran (auto) 0.02 Absolute Neuts (auto) 5.1 Absolute Nucleated RBC 0.0 Nucleated RBC % 0.0 Sodium 134 L Potassium 3.6 Chloride 104 Carbon Dioxide 25 Anion Gap 5 L BUN 16 Creatinine 0.70 Estim Creat Clear Calc Not Reportable Estimated GFR > 60 Glucose 104 Calcium 8.1 L Total Bilirubin 0.5 AST 24 ALT 14 Alkaline Phosphatase 69 Total Protein 6.0 L Albumin 3.5 Procedures/Treatments: RIGHT TKA Discharge Plan Discharge Attending physician on discharge: Sushant Huerta Consulting providers: Louise Aaron Discharging Clinician: Shruthi Solomon Anticipated Discharge Date/Time: 07/19/23 16:36 Patient Disposition: Home Health Service Activity: may shower, no driving, follow weight bearing status and other - see discharge instructions Diet: as tolerated Wound Care Instructions: keep dressing dry Discharge Instructions: [facility] arranged for RN, PT/OT evaluations and treatment. [facility] will contact you to arrange first visit. [facility] contact phone number is [phone]. Post Op Total Knee Replacement Instructions Dr. Sushant Huerta [phone] Your dressing will be changed prior to your discharge. You will be sent home with one additional dressing to be changed on post op day 7 by the [facility] RN. Your terese will be removed on the 14th day after surgery and steri-strips will be placed. Please practice good hand hygiene and do not touch your incision in order to prevent infection. You may shower with your dressing but do not submerge in a bath tub. Do not drive or operate machinery until you are released by Dr. Huerta. Do not walk without a walker for any reason until you are released by Dr. Huerta. Continue to use your ice machine. Please use a towel or pillow case to protect your skin before applying your ice machine. Do NOT place a pillow under your knee. You may use a pillow from the calf down if needed. This will prevent a flexion contracture postoperatively. You may begin use of your CPM machine at home if you have been given one pre-operatively. DO NOT USE WHILE YOU ARE SLEEPING. Yo
== END 2023-07-19 18:20 | disposition home health service (06) ==
LOC: ANHSURGERY 11:42 → ANH3MEDSUR 11:42
PROVIDERS: Nurse Practitioner; Admitting Provider Orthopaedic Surgery; PCP Internal Medicine; Visit Provider Orthopaedic Surgery
PROC: (CPT 27447; principal; 2023-07-17 11:00)
DX: M17.11 Unilateral primary osteoarthritis, right knee (principal); G30.9 Alzheimer's disease, unspecified; F02.80 Dementia in other diseases classified elsewhere, unspecified severity, without behavioral disturbance, psychotic disturbance, mood disturbance, and anxiety; F41.9 Anxiety disorder, unspecified; F31.9 Bipolar disorder, unspecified; M79.7 Fibromyalgia; K21.9 Gastro-esophageal reflux disease without esophagitis; I10 Essential (primary) hypertension; N99.89 Other postprocedural complications and disorders of genitourinary system; R33.8 Other retention of urine; E03.9 Hypothyroidism, unspecified; Z79.1 Long term (current) use of non-steroidal anti-inflammatories (NSAID); Z86.19 Personal history of other infectious and parasitic diseases; Z87.891 Personal history of nicotine dependence; Z91.51 Personal history of suicidal behavior; Z82.49 Family history of ischemic heart disease and other diseases of the circulatory system
CPT/HCPCS: 27447; 36415; 73560; 80048; 80053; 85025; 86850; 86900; 86901; 97110; 97116; 97165; 97530; 97535; A9270; C1713; C1776; G0378; G0379; J0171; J0690; J1100; J1170; J1885; J2270; J2371; J2405; J2704; J2795; J3010; J7030; J7120

== ENCOUNTER 2023-11-16 10:00 | Outpatient (RCR) | payer OTHER, SELFPAY ==
--- NOTE | 2023-08-20 14:10 | PCPTNOTE ---
Patient did not show up for scheduled initial evaluation this date.
--- NOTE | 2023-08-24 16:12 | PTOPEVAL1 ---
Assessment and note entered by Lewis Huffman, PT Evaluation Information Assessment Status Evaluation Diagnosis s/p R TKA, leg swelling,altered gait, LE weakness Onset 07/17/23 Subjective Information She is currently at assisted living and sister keeps an eye on her. She is able to get around with a wheelchair and rollator. She needs help for toileting and showering at this point. Reported Pain Level Pain Score 8: Self Report Assessment PT Clinical Summary Patient presents with significant bilateral knee flexion contractures, greater on operative side. She has deficits in knee ROM, hip strength, and overall functional mobility that she will benefit from skilled therapy to address deficits and maximize function. Plan of Care Interventions Gait Training,Intermittent Compression,Manual Therapy,Neuro Re-education,Therapeutic Activities, Therapeutic Exercise PT Services Indicated Yes These treatments will address the objective and functional deficits as defined above. The patient will be advanced safely and appropriately in order for the patient to progress towards his/her prior level of function. Additional exercises will be introduced and as well as a comprehensive home exercise program upon discharge, if needed, ?to ensure carryover of functional gains achieved in the clinic. This treatment plan has been reviewed and agreement upon by the patient.
--- NOTE | 2023-08-27 09:22 | PCPTNOTE ---
Patient was called & her appointment today was cancelled date due to not having insurance approval.
--- NOTE | 2023-09-07 07:57 | PCPTNOTE ---
Patient canceled this date due to transportation issue.
--- NOTE | 2023-09-14 14:00 | PCPTNOTE ---
Patient did not show up for scheduled appointment this date.
--- NOTE | 2023-09-19 12:06 | PCPTNOTE ---
Patient no showed to appointment this date. Patient was called at living facility who stated patient was not up for therapy this date.
--- NOTE | 2023-09-21 14:33 | PCPTNOTE ---
Patient no showed this date. States patient was not feeling well and is not coming.
--- NOTE | 2023-09-21 15:19 | OPREHPOC ---
Outpatient Therapy Plan of Care This is a Multidisciplinary Plan of Care that may contain components documented by all disciplines (PT, OT, and ST.) PT Problem 1 PT Problem #1 Knowledge Deficit PT Goal 1 Goal [place] with HEP Target Visit 4 PT Problem 2 PT Problem #2 Pain PT Goal 1 Goal Report no pain greater than 3/10 with sit to stand activity Target Visit 8 PT Problem 3 PT Problem #3 Impaired Range of Motion PT Goal 1 Goal Improve R knee extension to -10 degrees to even gait cycle and improve mobility safely Target Visit 8 PT Goal 2 Goal Improve erin hip abduction ROM to 30 degrees to reduce knee collapse during gait cycle Target Visit 8 PT Problem 4 PT Problem #4 Edema PT Goal 1 Goal Demonstrate 2 cm+ reduction in R knee joint line girth indicating soft tissue healing Target Visit 8
--- NOTE | 2023-09-28 15:39 | PTOPPROG ---
Assessment and note entered by Lewis Huffman, PT Evaluation Information Assessment Status Progress Diagnosis s/p R TKA, leg swelling,altered gait, LE weakness Onset 07/17/23 Subjective Information Reports that she feels like a 10 all the time and it hasn't changed. Reports that she has not been coming to therapy because she has been sick. They started her on a new medicine and she doesn't think it is helping. Reports that she is walking at home but that is all she is doing. Still using her walker all of the time. Says that her Left knee hurts worst right now. Arms are also hurting all the time. Assessment PT Clinical Summary Patient continues to show significant lack of terminal knee extension and strength deficits. To this point in therapy she has been non compliant with both home exercises and attendance in therapy as she has arrived for 3 treatments and not arrived for 5 scheduled appointments over plan of care. Patient continues to show need for skilled therapy. I contacted physicians office about compliance issues and they are aware. Plan of Care Interventions Gait Training,Intermittent Compression,Manual Therapy,Neuro Re-education,Therapeutic Activities, Therapeutic Exercise PT Services Indicated Yes Treatment Frequency and 2x/week for 4 weeks Duration These treatments will address the objective and functional deficits as defined above. The patient will be advanced safely and appropriately in order for the patient to progress towards his/her prior level of function. Additional exercises will be introduced and as well as a comprehensive home exercise program upon discharge, if needed, ?to ensure carryover of functional gains achieved in the clinic. This treatment plan has been reviewed and agreement upon by the patient.
--- NOTE | 2023-09-28 15:40 | OPREHPOC ---
Outpatient Therapy Plan of Care This is a Multidisciplinary Plan of Care that may contain components documented by all disciplines (PT, OT, and ST.) PT Problem 1 PT Problem #1 Knowledge Deficit PT Goal 1 Goal [place] with HEP Target Visit 12 Progress Not Met Comment Patient non complant to this point with HEP PT Problem 2 PT Problem #2 Pain PT Goal 1 Goal Report no pain greater than 3/10 with sit to stand activity Target Visit 8 Progress Partially Met Comment No pain progress at this time per reports PT Problem 3 PT Problem #3 Impaired Range of Motion PT Goal 1 Goal Improve R knee extension to -10 degrees to even gait cycle and improve mobility safely Target Visit 8 Progress Partially Met Comment Improved by 9 degrees to this date PT Goal 2 Goal Improve erin hip abduction ROM to 30 degrees to reduce knee collapse during gait cycle Target Visit 8 Progress Partially Met Comment Improved but stilllacking functional range PT Problem 4 PT Problem #4 Edema PT Goal 1 Goal Demonstrate 2 cm+ reduction in R knee joint line girth indicating soft tissue healing Target Visit 8 Progress Partially Met Comment Improved. Swelling still indicated.
--- NOTE | 2023-10-12 11:04 | PCPTNOTE ---
Patient sister called to cancel appointment.
--- NOTE | 2023-10-26 16:18 | PTOPPROG ---
Assessment and note entered by Lewis Huffman, PT Evaluation Information Assessment Status Progress Diagnosis s/p R TKA, leg swelling,altered gait, LE weakness Onset 07/17/23 Subjective Information Reports that she is having more pain in her left knee and left hip at this time. She has not confirmed that she is doing her exercises consistently. She does not feel comfortable resting her leg straight on the table on either side. Assessment PT Clinical Summary Patient has seen some improvement since last reassessment. Overall she is progressed from initial evaluation but still shows significant lack of objective progress in gait and terminal knee ROM. Will continue to benefit from skilled therapy to work on functional mobility and maximize motion. Plan of Care Interventions Gait Training,Intermittent Compression,Manual Therapy,Neuro Re-education,Therapeutic Activities, Therapeutic Exercise PT Services Indicated Yes Treatment Frequency and 2x/week for 3 visits leading up to MD follow up. Duration These treatments will address the objective and functional deficits as defined above. The patient will be advanced safely and appropriately in order for the patient to progress towards his/her prior level of function. Additional exercises will be introduced and as well as a comprehensive home exercise program upon discharge, if needed, ?to ensure carryover of functional gains achieved in the clinic. This treatment plan has been reviewed and agreement upon by the patient.
--- NOTE | 2023-10-26 16:19 | OPREHPOC ---
Outpatient Therapy Plan of Care This is a Multidisciplinary Plan of Care that may contain components documented by all disciplines (PT, OT, and ST.) PT Problem 1 PT Problem #1 Knowledge Deficit PT Goal 1 Goal [place] with HEP Target Visit 12 Progress Not Met Comment Patient non compliant to this point with HEP PT Problem 2 PT Problem #2 Pain PT Goal 1 Goal Report no pain greater than 3/10 with sit to stand activity Target Visit 12 Progress Partially Met Comment No pain progress at this time per reports PT Problem 3 PT Problem #3 Impaired Range of Motion PT Goal 1 Goal Improve R knee extension to -10 degrees to even gait cycle and improve mobility safely Target Visit 12 Progress Partially Met Comment Improved by -17 degrees to this date PT Goal 2 Goal Improve erin hip abduction ROM to 30 degrees to reduce knee collapse during gait cycle Target Visit 12 Progress Partially Met Comment Improved but still lacking functional range PT Problem 4 PT Problem #4 Edema PT Goal 1 Goal Demonstrate 2 cm+ reduction in R knee joint line girth indicating soft tissue healing Target Visit 8 Progress Met
--- NOTE | 2023-11-16 11:10 | PTOPDC ---
Assessment and note entered by Lewis Huffman, PT Evaluation Information Assessment Status Discharge Diagnosis s/p R TKA, leg swelling,altered gait, LE weakness Onset 07/17/23 Subjective Information Patient reports that she is satisfied with the function in her knee. She is more concerned with the pain in her left hip at this time. She reports that she does not walk as much as she should at her home but promises to try to do more. Would like to be discharged from therapy art this time for her R knee. Understands that she is not objectively where she needs to be but is happy with what she is able to do at this time. Reported Pain Level Pain Score 4,8: Self Report Pain Score 8,8: Self Report Assessment PT Clinical Summary Patient has seen improvement from initial evaluation at this time, but has had issues with arrival and compliance which were very prevalent early in treatment. It is evident that she has not been compliant with home activity and may have some personal barriers to doing so. She continues to present with lack of terminal extension in bilateral knees but is ambulatory and functional to the level that she desires to be. Patient perseverate on left hip and need to have it addressed by surgeon. Plan of Care PT Services Indicated D/C to HEP
--- NOTE | 2023-11-16 11:11 | OPREHPOC ---
Outpatient Therapy Plan of Care This is a Multidisciplinary Plan of Care that may contain components documented by all disciplines (PT, OT, and ST.) PT Problem 1 PT Problem #1 Knowledge Deficit PT Goal 1 Goal [place] with HEP Target Visit 12 Progress Not Met Comment Patient non complant to this point with HEP PT Problem 2 PT Problem #2 Pain PT Goal 1 Goal Report no pain greater than 3/10 with sit to stand activity Target Visit 12 Progress Not Met Comment No pain progress at this time per reports PT Problem 3 PT Problem #3 Impaired Range of Motion PT Goal 1 Goal Improve R knee extension to -10 degrees to even gait cycle and improve mobility safely Target Visit 12 Progress Not Met Comment Improved by -15 degrees to this date PT Goal 2 Goal Improve erin hip abduction ROM to 30 degrees to reduce knee collapse during gait cycle Target Visit 12 Progress Partially Met Comment Met on right side but not left PT Problem 4 PT Problem #4 Edema PT Goal 1 Goal Demonstrate 2 cm+ reduction in R knee joint line girth indicating soft tissue healing Target Visit 8 Progress Met
== END 2023-11-16 13:57 | disposition home or self-care (01) ==
LOC: ANHGOSHPT 10:00
PROVIDERS: PCP Internal Medicine; Visit Provider Orthopaedic Surgery
DX: Z47.1 Aftercare following joint replacement surgery (principal); Z96.651 Presence of right artificial knee joint
CPT/HCPCS: 97110; 97140; 97161; 97530; 99199

== ENCOUNTER 2024-05-30 14:21 | Outpatient (CLI) | payer OTHER, SELFPAY ==
--- NOTE | ~2024-05-30 | MM_ITS ---
EXAMINATION: MM screening zhao BI w jacey HISTORY: Screening TECHNIQUE: Craniocaudal and mediolateral oblique 3-D tomosynthesis images were obtained and synthetic 2-D images were generated. CAD analysis was submitted and interpreted. COMPARISON: Comparison to multiple prior studies sequentially, with oldest reviewed study dated 07/02. BREAST PARENCHYMAL COMPOSITION: Not dense: There are scattered areas of fibroglandular density. FINDINGS: Stable asymmetry upper outer quadrant of the right breast. There is no evidence of suspicio us mass, calcification, or architectural distortion to suggest malignancy in either breast. There has been no suspicious interval change. IMPRESSION: 1. No mammographic evidence of malignancy. 2. Recommend routine screening mammography in one year. BI-RADS Category 2: Benign finding(s). Reviewed, dictated and finalized at location B.
== END 2024-05-30 14:22 | disposition home or self-care (01) ==
LOC: ANHIMG 14:22
PROVIDERS: PCP Internal Medicine; Visit Provider Internal Medicine
DX: Z12.31 Encounter for screening mammogram for malignant neoplasm of breast (principal)
CPT/HCPCS: 77063; 77067

== ENCOUNTER 2024-11-24 14:49 | Outpatient (CLI) | payer OTHER, SELFPAY ==
--- NOTE | ~2024-11-24 | CT_ITS ---
EXAMINATION: CT hip LT wo con DATE: 11/24/2024 15:16 INDICATION: Left hip pain. TECHNIQUE: Computed tomography (CT) of the left hip was performed without intravenous contrast. Autom ated exposure control and iterative reconstruction technique were employed. The dose-length product w as 251.78 mGy-cm. COMPARISON: Pelvis and left hip radiographs 05/29/2024, 05/14/2023 FINDINGS: Alignment is normal. No acute fracture. There are old healed fractures of left superior and inferior pubic rami. There is severe left hip joint osteoarthritis including bone volume loss of the acromion and femoral head. There is a hip joint effusion. There is severe osteoarthritis of left sac roiliac joint. IMPRESSION: 1. Severe left hip osteoarthritis including bone volume loss of acromion and femoral head. 2. Left hip joint effusion. Reviewed, dictated and finalized at location A. HASING CLERK IMPRESSION: 1. Severe left hip osteoarthritis including bone volume loss of acromion and fe moral head. 2. Left hip joint effusion.
--- OUTSIDE RECORDS SUMMARY | 2024-11-24 15:06 | XMS_ITS | Referral Summary ---
Author Organization [facility] Address [address] [place] [id number] Care Team Providers Care Food Production Manager Name Role Phone No, Physician Primary Care Provider [phone] Allergies No known active allergies Active Problems Problem Noted Date Diagnosed Date Surgical follow-up care 10/04/2012 Social History Tobacco Use Types Packs/Day Years Used Date Smoking Tobacco: Never Assessed Personal Safety Answer Date Recorded Have you ever been in or are you currently in a harmful physical or emotional relationship or is someone making you feel afraid or unsafe? Denies 02/01/2023 Comments Unknown Sex and Gender Information Value Date Recorded Sex Assigned at Not on file Legal Sex Female 6:32 AM [employer] Gender Identity Not on file Sexual Orientation Not on file Last Filed Vital Signs Vital Sign Reading Time Taken Comments Blood Pressure 152/81 02/01/2023 11:04 PM CDT Pulse 87 02/01/2023 11:04 PM CDT Temperature 36.8 C (98.3 F) 02/01/2023 4:55 PM CDT Respiratory Rate 18 02/01/2023 11:04 PM CDT Oxygen Saturation 98% 02/01/2023 11:04 PM CDT Inhaled Oxygen Concentration - - Weight 54.4 kg (120 lb) 02/01/2023 4:55 PM CDT Height 157.5 cm (5' 2 ) 02/01/2023 4:55 PM CDT Body Mass Index 21.95 02/01/2023 4:55 PM CDT Plan of Treatment Not on file Insurance Member Subscriber Plan / Payer (Ef fective 2023-Present) Name:Krys Varela I Relation to Subscriber:Self Name:Krys Varela I Payer ID:[id number] (NAIC) Group ID:Not on file Type:MEDICAID RISK OTHER Address: ATTN: CLAIMS DEPT [address] [place] [phone] Care Teams Food Production Manager Relationship Specialty Start Date End Date No, Physician PCP - General 05/20/18
--- OUTSIDE RECORDS SUMMARY | 2024-11-24 15:06 | XMS_ITS | Clinical Summary ---
Author Organization [facility] Address [address] [place] [id number] Care Team Providers Care Documentation Nurse Name Role Phone No, Physician Primary Care Provider [phone] Allergies No known active allergies Active Problems Problem Noted Date Diagnosed Date Surgical follow-up care 10/04/2012 Medical History Medical History Date Comments Aftercare following joint re placement surgery Aftercare following joint re placement - (Added by TW Dylan) Social History Tobacco Use Types Packs/Day Years [...] on file Legal Sex Female 6:32 AM [employer] Gender Identity Not on file Sexual Orientation Not on file Obstetrics History Last Filed Vital Signs Vital Sign Reading [...] 02/01/2023 4:55 PM CDT Plan of Treatment Health Maintenance Due Date Last Done Comments Breast Cancer Screening-Mammogram 1950 Colon Cancer Screening-Colonoscopy 1950 Depression Screening 1952 Fall Risk Assessment 1950 Osteoporosis Screening-Bone Density Scan 1952 Hepatitis B Screening 1970 Zoster Vaccine (1 of 2) 2002 Well Visit 65+ 2017 Pneumococcal vaccine 65+ (2 of 2 - PPSV23 or PCV20) 06/04/2019 06/04/2018 Covid-19 Vaccine (3 - season) 2024, 11/21/2020 Influenza Vaccine (#1) 2024 , 06/19/2018, 08/03/2014 DTaP/Tdap/Td Vaccine (2 - Td or Tdap) 06/04/2028 Hepatitis C Screening Completed 09/18/2018, 012 Insurance [facility] Care Teams Documentation Nurse Relationship Specialty Start Date End Date No, Physician PCP - General 05/20/18
== END 2024-11-24 14:50 | disposition home or self-care (01) ==
PROVIDERS: PCP Internal Medicine
DX: M16.12 Unilateral primary osteoarthritis, left hip (principal); M25.452 Effusion, left hip; M24.7 Protrusio acetabuli
CPT/HCPCS: 73700

== ENCOUNTER 2024-12-12 11:01 | Outpatient (CLI) | payer OTHER, SELFPAY ==
[2024-12-12 12:07] LABS: Eosinophils Absolute Auto 0.1 K/mm3 (0-0.3); Hematocrit 38.8 % (37.0-47.0); Hemoglobin 12.6 g/dL (12.0-15.0); Immature Granulocyte Absolute 0.02 K/mm3 (0.00-0.031); Immature Granulocyte Percent A 0.5 % (0-0.5); Lymphocytes Absolute Auto 2.02 K/mm3 (0.9-3.2); Lymphocytes Percent Auto 50.2 % (18.3-44.2); Mean Corpuscular HGB Conc 32.5 g/dl (32-36); Mean Corpuscular Hemoglobin 32.7 pg (26-34); Mean Corpuscular Volume 100.8 fl (80-100); Mean Platelet Volume 9.7 fl (7.4-10.4); Monocytes Absolute Auto 0.5 K/mm3 (0.1-0.6); Monocytes Percent Auto 12.4 % (2.6-8.5); Neutrophils Absolute Auto 1.4 K/mm3 (1.3-6.7); Neutrophils Percent Auto 33.9 % (45.5-73.1); Platelet Count Result 204 k/mm3 (150-375); Red Blood Count 3.85 M/mm3 (4.2-5.4); Red Cell Distribution Width 14.7 % (11.5-14.5)
[2024-12-12 12:37] LABS: Alanine Aminotransferase 12 U/L (6-35); Albumin Level 3.8 g/dL (3.5-5.1); Alkaline Phosphatase 75 U/L (38-126); Anion Gap 10 mmol/L (4-12); Aspartate Amino Transferase 20 U/L (14-36); Bilirubin,Total 0.5 mg/dL (0.2-1.3); Blood Urea Nitrogen 17 mg/dL (7-17); Calcium 8.4 mg/dL (8.4-10.2); Carbon Dioxide 27 mmol/L (22-30); Chloride 101 mmol/L (98-107); Estimated Glomerular Filt Rate > 60; Glucose 82 mg/dL (65-110); Potassium 3.8 mmol/L (3.4-5.0); Sodium 138 mmol/L (137-145)
[2024-12-12 13:08] LABS: Thyroid Stimulating Hormone Reflex 0.386 uIU/mL (0.465-4.68)
[2024-12-12 16:57] LABS: Free T4 Free Thyroxine Reflex 1.35 ng/dL (0.78-2.19)
[2024-12-12 20:43] LABS: Total Triiodothyronine (T3) 0.89 NG/ML (0.97-1.69)
== END 2024-12-12 11:02 | disposition home or self-care (01) ==
PROVIDERS: PCP Internal Medicine; Visit Provider Internal Medicine
DX: R06.09 Other forms of dyspnea (principal); E03.9 Hypothyroidism, unspecified
CPT/HCPCS: 36415; 71046; 80053; 84439; 84443; 84480; 85025; 93005